=== PATIENT | female | born 1985 | race Caucasian/White ===

== ENCOUNTER 2016-09-15 19:28 | Emergency (ER) | payer SELFPAY ==
[2016-09-15] MEDS ORDERED: LIDOCAINE 5% (700 MG) TRANSDERMAL ADH..PATCH TP ONE (20:29)
[2016-09-15] MEDS ORDERED: HYDROCODONE/ACETAMINOPHEN 5-325 MG TABLET PO ONE (20:29)
--- NOTE | 2016-09-15 20:32 | ER Document Report ---
HPI - HPI Patient complains to provider of: right knee pain Onset: Yesterday Onset/Duration: Gradual Quality of pain: Achy Pain Level: 4 Context: Patient complains of a flareup of chronic right knee pain that started yesterday. Patient denies any injury. Patient states that she recently started a new job 2 weeks ago that involves a lot of standing. Patient also noticed a bruise to her right knee that she is uncertain how she got. Patient denies any other abnormal bleeding or bruising. Associated Symptoms: Other - Right knee pain Exacerbated by: Movement, Walking Relieved by: Denies Similar symptoms previously: Yes Recently seen / treated by doctor: No - ROS ROS below otherwise negative: Yes Systems Reviewed and Negative: Yes All other systems reviewed and negative - CONSTITUTIONAL Constitutional: DENIES: Fever - NEURO Neurology: DENIES: Weakness - REPRODUCTIVE LMP: 08/28/16 Reproductive: DENIES: : - MUSCULOSKELETAL Musculoskeletal: REPORTS: Extremity pain - Right knee - DERM Skin Color: Ecchymosis Skin Problems: None Past Medical History - General Information source: Patient - Social History Smoking Status: Current Every Day Smoker Occupation: [employer] Family History: CVA, DM, Hyperlipidemia, Hypertension, Malignancy, Thyroid Disfunction Patient has suicidal ideation: No Patient has homicidal ideation: No - Past Medical History Cardiac Medical History: Reports: Hx Hypertension - no medication Pulmonary Medical History: Reports: Hx Bronchitis Neurological Medical History: Reports: Hx Migraine Renal/ Medical History: Reports: Hx Kidney Stones, Hx Ovarian Cysts. Denies: Hx Peritoneal Dialysis Musculoskeltal Medical History: Reports Hx Musculoskeletal Deformity, Reports Hx Musculoskeletal Trauma Skin Medical History: Reports Hx Cellulitis Traumatic Medical History: Reports: Hx Fractures Past Surgical History: Reports: Hx Adenoidectomy, Hx Breast Surgery - Cysts, Hx Section, Hx Cholecystectomy, Hx Orthopedic Surgery, Hx Tonsillectomy, Hx Tubal Ligation, Hx Urinary Tract Surgery - stent - Immunizations Immunizations up to date: Yes Hx Diphtheria, Pertussis, Tetanus Vaccination: Yes - 2009 Vertical Provider Document - CONSTITUTIONAL Agree With Documented VS: Yes Exam Limitations: No Limitations General Appearance: WD/WN, No Apparent Distress - INFECTION CONTROL TRAVEL OUTSIDE OF THE [place] IN LAST 30 DAYS: No - HEENT HEENT: Atraumatic, Normocephalic - NECK Neck: Normal Inspection, Supple - RESPIRATORY Respiratory: Breath Sounds Normal, No Respiratory Distress O2 Sat by Pulse Oximetry: 97 - CARDIOVASCULAR Cardiovascular: Regular Rate, Regular Rhythm Pulses: Normal: Posterior tibial - BACK Back: Normal Inspection - MUSCULOSKELETAL/EXTREMETIES Musculoskeletal/Extremeties: MAEW, FROM, Tender - Right knee joint tenderness to joint line as well as right lateral and right superior compartments, no joint effusion, Eccymosis - Area of ecchymosis to distal right femur above knee joint Notes: No laxity with varus or valgus maneuvers. Patellar tendon intact. No joint effusion - NEURO Level of Consciousness: Awake, Alert, Appropriate Motor/Sensory: No Motor Deficit, No Sensory Deficit - DERM Integumentary: Warm, Dry Course - Re-evaluation Re-evalutation: 09/15/16 20:[address] hamilton regarding patient presentation and management. Agrees with discharge plan of care, no additional diagnostic tests recommended this time. 09/15/16 20:30 Patient has crutches, Mukund wrap as well as knee immobilizer at home - Vital Signs Vital signs: Temp Pulse Resp BP Pulse Ox 98.6 F 100 16 141/108 H 97 09/15/16 19:30 09/15/16 19:30 09/15/16 19:30 09/15/16 19:30 09/15/16 19:30 - Diagnostic Test Radiology reviewed: Reports reviewed - Reviewed patient's x-ray report from March 2016 Discharge - Discharge Clinical Impression: Chronic pain of right knee, Elevated blood pressure reading Contusion of right leg Qualifiers: Encounter type: initial encounter Qualified Code(s): S80.11XA - Contusion of right lower leg, initial encounter Instructions: Oral Narcotic Medication ([facility]), Suspected Internal Knee Injury ( [facility]), Knee Immobilizing Splint ([facility]), Use of Crutches ([facility]), Ice & Elevation ( [facility]) Additional Instructions: Return immediately for any new or worsening symptoms Followup with your primary care provider, call tomorrow to make a followup appointment Follow up with orthopedic for further evaluation. Your blood pressure was elevated today, recheck with her primary doctor 1-2 days to have this reevaluated. You may use [id number] topical lidocaine patches to painful area Use your knee immobilizer and crutches at home as directed Prescriptions: Hydrocodone/Acetaminophen [[place] 5-325 Tablet] 1 each PO Q4 PRN #15 tablet PRN Reason: Forms: Elevated Blood Pressure, Restricted Release Referrals: [facility] [Provider Group] - Follow up as needed [facility] [Provider Group] - Follow up as needed [facility] [Provider Group] - Follow up tomorrow
[2016-09-15 20:49] VITALS: BP 135/98
== END 2016-09-15 20:45 | disposition home or self-care (01) ==
LOC: ER 19:28
DX: S80.01XA Contusion of right knee, initial encounter (principal); X58.XXXA Exposure to other specified factors, initial encounter; G89.29 Other chronic pain; M25.561 Pain in right knee; F17.200 Nicotine dependence, unspecified, uncomplicated; I10 Essential (primary) hypertension
CPT/HCPCS: 99283

== ENCOUNTER 2017-01-22 11:31 | Emergency (ER) | payer SELFPAY ==
[2017-01-22 11:44] VITALS: BP 141/93
--- NOTE | 2017-01-22 12:25 | ER Document Report ---
ED Extremity Problem, Lower - General Chief Complaint: Knee Pain Stated Complaint: RIGHT KNEE PAIN Time Seen by Provider: 01/22/17 12:07 Mode of Arrival: Wheelchair Information source: Patient Notes: 31-year-old female presents to ED for complaint of right knee pain 2 days. She has a history of chronic knee pain and states that the pain is increased. She has an appointment with orthopedics in 2 weeks. She states the pain increases when she straightens out her legs. Patient denies any new injuries or falls. TRAVEL OUTSIDE OF THE [place] IN LAST 30 DAYS: No - HPI Patient complains to provider of: Pain Location: Knee Occurred: Other - Chronic Onset/Duration: Persistent Quality of pain: Sharp Severity: Moderate Pain Level: 4 Recent injury: No Associated symptoms: Painful ambulation Exacerbated by: Movement, Walking Relieved by: Elevation, Ice, Rest - Related Data Allergies/Adverse Reactions: Sulfa (Sulfonamide Antibiotics) Allergy (Verified 04/07/16 19:37) Hives Past Medical History - General Information source: Patient - Social History Smoking Status: Current Every Day Smoker Cigarette use (# per day): Yes - One half pack per day Chew tobacco use (# tins/day): No Smoking Education Provided: Yes - Less than 2 minutes Frequency of alcohol use: Occasional Drug Abuse: None Occupation: [employer] Lives with: Parents Family History: Arthritis, CVA, DM, Hyperlipidemia, Hypertension, Malignancy, Thyroid Disfunction. denies: CAD, COPD Patient has suicidal ideation: No Patient has homicidal ideation: No - Past Medical History Cardiac Medical History: Reports: Hx Hypertension - no medication Pulmonary Medical History: Reports: Hx Bronchitis EENT Medical History: Reports: None Neurological Medical History: Reports: Hx Migraine Endocrine Medical History: Reports: None Renal/ Medical History: Reports: Hx Kidney Stones, Hx Ovarian Cysts Malignancy Medical History: Reports: None GI Medical History: Reports: None Musculoskeltal Medical History: Reports Hx Musculoskeletal Deformity, Reports Hx Musculoskeletal Trauma Skin Medical History: Reports Hx Cellulitis Psychiatric Medical History: Reports: None Traumatic Medical History: Reports: Hx Fractures - Pelvis and L4, Hx Spine Fracture Infectious Medical History: Reports: None Past Surgical History: Reports: Hx Adenoidectomy, Hx Breast Surgery - Cysts, Hx Section, Hx Cholecystectomy, Hx Orthopedic Surgery - Rods and left hip , Hx Tonsillectomy, Hx Tubal Ligation, Hx Urinary Tract Surgery - stent - Immunizations Immunizations up to date: Yes Hx Diphtheria, Pertussis, Tetanus Vaccination: Yes - 2009 Review of Systems - Review of Systems Constitutional: No symptoms reported EENT: No symptoms reported Cardiovascular: No symptoms reported Respiratory: No symptoms reported Gastrointestinal: No symptoms reported Genitourinary: No symptoms reported Female Genitourinary: No symptoms reported Musculoskeletal: Joint pain - Right knee. denies: Joint swelling Skin: No symptoms reported Hematologic/Lymphatic: No symptoms reported Neurological/Psychological: No symptoms reported Physical Exam - Vital signs Vitals: Temp Pulse Resp BP Pulse Ox 98.6 F 96 20 141/93 H 99 01/22/17 11:41 01/22/17 11:41 01/22/17 11:41 01/22/17 11:41 01/22/17 11:41 Interpretation: Normal - General General appearance: Appears well, Alert - HEENT Head: Normocephalic, Atraumatic Eyes: Normal Pupils: PERRL - Respiratory Respiratory status: No respiratory distress Chest status: Nontender Breath sounds: Normal Chest palpation: Normal - Cardiovascular Rhythm: Regular Heart sounds: Normal auscultation Murmur: No - Abdominal Inspection: Normal Distension: No distension Bowel sounds: Normal Tenderness: Nontender Organomegaly: No organomegaly - Back Back: Normal, Nontender - Extremities General upper extremity: Normal inspection, Nontender, Normal color, Normal ROM , Normal temperature General lower extremity: Normal inspection, Normal color, Normal ROM, Normal temperature, Normal weight bearing. No: Alicia's sign Hip: Normal, Nontender. No: Pain with ROM, Unable to bear weight Thigh: Normal Knee: Tender, Pain with ROM, Patellar tendon intact, Tender joint line. No: Abrasion, Deformity, Dislocation, Drawer's test instability, Ecchymosis, Instability, Joint effusion, Laceration, Laxity with valgus stress, Laxity with varus stress, Popliteal fossa tender, Unable to bear weight - Neurological Neuro grossly intact: Yes Cognition: Normal Orientation: AAOx4 [place] Coma Scale Eye Opening: Spontaneous [place] Coma Scale Verbal: Oriented G[place] Coma Scale Motor: Obeys Commands [place] Coma Scale Total: 15 Speech: Normal Motor strength normal: LUE, RUE, LLE, RLE Sensory: Normal - Psychological Associated symptoms: Normal affect, Normal mood - Skin Skin Temperature: Warm Skin Moisture: Dry Skin Color: Normal Course - Vital Signs Vital signs: Temp Pulse Resp BP Pulse Ox 98.6 F 96 20 141/93 H 99 01/22/17 11:41 01/22/17 11:41 01/22/17 11:41 01/22/17 11:41 01/22/17 11:41 Discharge - Discharge Clinical Impression: Chronic pain of right knee Condition: Stable Disposition: HOME, SELF-CARE Additional Instructions: Chronic Pain Control Stress, inactivity, and depression make pain more severe regardless of the cause of the pain. Stress and poor physical condition can cause pain such as headaches and backache. Relaxation: Rest in a quiet place with your eyes closed for 20 minutes twice daily. Concentrate on a pleasant image, or simply "feel" your breathing. Clear your mind. Stress management: Deal with your "stressors." Either take action, or eliminate the stressor from your life. Don't let things hang over you. Accept those things you can't change. Nutrition: Eat small, balanced meals -- don't skip, don't overeat. Meals should be high-carbohydrate, low-sugar, low-fat. Exercise: Exercise helps painful conditions and eases stress. Get 30 minutes of moderate exercise, five days a week. Do an activity that does not flare your pain. Precautions: Pain which continues to disrupt daily activities, or which changes in nature, requires a medical evaluation. Pain Clinic referral is available. We do not manage chronic pain in the Emergency Department. We will try to appropriately help you through an acute flare of your chronic painful condition , but for on-going chronic pain that does not improve, you will need to see your private doctor or highway painter helper. We do not provide repeated medication management of chronic painful conditions. If you wish, we can provide the name of local pain management physicians. ICE & ELEVATION: Apply ice packs frequently against the painful area. Many different schedules are recommended, such as "20 minutes on, 20 minutes off" or "one hour ice, two hours rest." If you need to work, you may need to go longer between ice treatments. You should plan to have the area ice packed AT LEAST one- fourth of the time. The ice should be applied over the wrap, tape, or splint, or over a layer of cloth -- not directly against the skin. Some ice bags have a built-in cloth and can be put directly on the skin. Your injured part should be elevated as much as possible over the next 48 hours. Try to keep the injury above the level of the heart. Avoid use of the injured area. Elevation and rest will decrease the swelling. USE OF [id number]-[id number] IBUPROFEN: Ibuprofen (Advil, Nuprin, Medipren, Motrin IB) is a medication for fever and pain control. In addition, it has anti- inflammatory effects which may be beneficial, especially in the treatment of injuries. It's best to take ibuprofen with food. Persons with ulcer disease or allergy to aspirin should notify their physician of this before taking ibuprofen. Ibuprofen can be given every four to six hours, for a total of four doses daily. Age Pain or fever dose Antiinflammatory dose 6-8 yr 200 mg (1 tab) 200 mg (1 tab) 9-11 yr 200 mg (1 tab) 200-400 mg (1-2 tab) 11-14 yr 200-400 mg (1-2 tab) 400 mg (2 tab) 15-adult 400 mg (2 tab) 600 mg (3 tab) FOLLOW-UP CARE: If you have been referred to a physician for follow-up care, call the physician s office for an appointment as you were instructed or within the next two days. If you experience worsening or a significant change in your symptoms, notify the physician immediately or return to the Emergency Department at any time for re-evaluation. Forms: Elevated Blood Pressure, Smoking Cessation Education, Return to Work Referrals: JANUARY DAVIS MD [ACTIVE STAFF] - Follow up as needed
== END 2017-01-22 12:20 | disposition home or self-care (01) ==
LOC: ER 11:31
DX: G89.29 Other chronic pain (principal); M25.561 Pain in right knee; F17.210 Nicotine dependence, cigarettes, uncomplicated; Z88.2 Allergy status to sulfonamides; Z87.442 Personal history of urinary calculi; Z90.49 Acquired absence of other specified parts of digestive tract; Z98.51 Tubal ligation status
CPT/HCPCS: 99283

== ENCOUNTER 2017-03-28 19:03 | Emergency (ER) | payer SELFPAY ==
[2017-03-28] MEDS ORDERED: KETOROLAC TROMETHAMINE INJ/PF 30 MG/1 ML SDV IV ONE (19:32)
[2017-03-28] MEDS ORDERED: NORMAL SALINE 1000 ML 1,000 ML IV ONE (19:32)
--- NOTE | 2017-03-28 19:35 | ER Document Report ---
ED Medical Screen (RME) - General Stated Complaint: FLANK PAIN Time Seen by Provider: 03/28/17 19:32 Mode of Arrival: Ambulatory Information source: Patient TRAVEL OUTSIDE OF THE [place] IN LAST 30 DAYS: No - HPI Patient complains to provider of: L flank pain Onset: Other - Pt .with 4 day h/o L flank pain (has h/o kidney stones) - Related Data Allergies/Adverse Reactions: Sulfa (Sulfonamide Antibiotics) Allergy (Verified 04/07/16 19:37) Hives Home Medications: Current Home Medications No Home Medications 03/28/17 [History] Past Medical History - Social History Chew tobacco use (# tins/day): No Frequency of alcohol use: Occasional Drug Abuse: None - Past Medical History Cardiac Medical History: Reports: Hx Hypertension - no medication Pulmonary Medical History: Reports: Hx Bronchitis Neurological Medical History: Reports: Hx Migraine Renal/ Medical History: Reports: Hx Kidney Stones, Hx Ovarian Cysts. Denies: Hx Peritoneal Dialysis Musculoskeltal Medical History: Reports Hx Musculoskeletal Deformity, Reports Hx Musculoskeletal Trauma Skin Medical History: Reports Hx Cellulitis Traumatic Medical History: Reports: Hx Fractures - Pelvis and L4, Hx Spine Fracture Past Surgical History: Reports: Hx Adenoidectomy, Hx Breast Surgery - Cysts, Hx Section, Hx Cholecystectomy, Hx Orthopedic Surgery - Rods and left hip , Hx Tonsillectomy, Hx Tubal Ligation, Hx Urinary Tract Surgery - stent - Immunizations Immunizations up to date: Yes Hx Diphtheria, Pertussis, Tetanus Vaccination: Yes - 2009 Physical Exam - Vital signs Vitals: Temp Pulse Resp BP Pulse Ox 98.3 F 90 18 151/101 H 99 03/28/17 19:18 03/28/17 19:18 03/28/17 19:18 03/28/17 19:18 03/28/17 19:18 Course - Vital Signs Vital signs: Temp Pulse Resp BP Pulse Ox 98.3 F 90 18 151/101 H 99 03/28/17 19:18 03/28/17 19:18 03/28/17 19:18 03/28/17 19:18 03/28/17 19:18
[2017-03-28 19:54] LABS: AMORPHOUS SEDIMENT,URINE TRACE /HPF; APPEARANCE,URINE CLOUDY; BILIRUBIN,URINE NEGATIVE (NEGATIVE); GLUCOSE, URINE NEGATIVE (NEGATIVE); KETONES,URINE NEGATIVE (NEGATIVE); LEUKOCYTE ESTERASE,URINE NEGATIVE (NEGATIVE); NITRITE,URINE NEGATIVE (NEGATIVE); PROTEIN,URINE NEGATIVE (NEGATIVE); URINE SPECIFIC GRAVITY 1.016; UROBILINOGEN,URINE NEGATIVE mg/dL (<2.0)
--- NOTE | 2017-03-28 20:31 | RADIOLOGY REPORT (SQ) ---
EXAM DESCRIPTION: CT LTD RENAL STONE PROTOCOL ON COMPLETED DATE/TIME: 03/28/2017 8:19 pm REASON FOR STUDY: L flank pain COMPARISON: 06/12/2013. TECHNIQUE: CT scan of the abdomen and pelvis performed without intravenous or oral contrast. Images reviewed with lung, soft tissue, and bone windows. Reconstructed coronal and sagittal MPR images revi ewed. All images stored on PACS. All CT scanners at this facility use dose modulation, iterative reconstruction, and/or weight based d osing when appropriate to reduce radiation dose to as low as reasonably achievable (ALARA). [facility]: Dose Right [facility]: CareDose [facility]: Dose Right [facility]: Teradose 4D [facility]: Smart SharePlow RADIATION DOSE: Up-to-date CT equipment and radiation dose reduction techniques were employed. CTDIv ol: 6.3 mGy. DLP: 334 mGy-cm.mGy. LIMITATIONS: None. FINDINGS: LOWER CHEST: No significant findings. No nodules or infiltrates. NON-CONTRASTED LIVER, SPLEEN, ADRENALS: Evaluation limited by lack of IV contrast. No identified sign ificant masses. PANCREAS: No masses. No peripancreatic inflammatory changes. GALLBLADDER: Surgically absent. RIGHT KIDNEY AND URETER: No suspicious masses. Assessment limited by lack of IV contrast. Several s mall calyceal calcifications. No hydronephrosis or hydroureter. LEFT KIDNEY AND URETER: No suspicious masses. Assessment limited by lack of IV contrast. Several sm all calyceal calcifications. No hydronephrosis or hydroureter. AORTA AND RETROPERITONEUM: No aneurysm. No retroperitoneal masses or adenopathy. BOWEL AND PERITONEAL CAVITY: No obvious masses or inflammatory changes. No free fluid. APPENDIX: Normal. PELVIS, BLADDER, AND ABDOMINAL WALL:No abnormal masses. No free fluid. Bladder normal. BONES: No significant findings. Surgical hardware in the left sacrum and iliac bone. OTHER: No other significant finding. IMPRESSION: SEVERAL SMALL CALYCEAL CALCULI IN BOTH KIDNEYS. NO URETERAL CALCULI OR OBSTRUCTION. NO OTHER SIGNIFICANT OR ACUTE PROCESS IN THE ABDOMEN OR PELVIS. COMMENT: Quality ID # [id number]: Final reports with documentation of one or more dose reduction techniques (e.g., Automated exposure control, adjustment of the mA and/or kV according to patient size, use of iterative reconstruction technique) TECHNICAL DOCUMENTATION: JOB ID: [id number]- All Rights Reserved
[2017-03-28] MEDS ORDERED: DIAZEPAM 5 MG TABLET PO ONE (21:12)
--- NOTE | 2017-03-28 21:16 | ER Document Report ---
ED General - General Chief Complaint: Flank Pain Stated Complaint: FLANK PAIN Time Seen by Provider: 03/28/17 19:32 Mode of Arrival: Ambulatory Notes: Patient is a 31 year old female that comes to the ED for chief complaint of left flank pain. Patient states she feels like there is a ball in her left lower back area, she states pain is intermittently very sharp, she states she has a history of kidney stones and she thinks she might have another one. She denies abdominal pain, hematuria, dysuria, fever, chills, nausea, vomiting, or any other locations of pain. She denies injury but she does note that when she bends over she has difficulty standing up again without sharp pain. TRAVEL OUTSIDE OF THE [place] IN LAST 30 DAYS: No - Related Data Allergies/Adverse Reactions: Sulfa (Sulfonamide Antibiotics) Allergy (Verified 04/07/16 19:37) Hives Past Medical History - General Information source: Patient - Social History Smoking Status: Current Every Day Smoker Chew tobacco use (# tins/day): No Frequency of alcohol use: Occasional Drug Abuse: None Lives with: Family Family History: Arthritis, CVA, DM, Hyperlipidemia, Hypertension, Malignancy, Thyroid Disfunction. denies: CAD, COPD Patient has suicidal ideation: No Patient has homicidal ideation: No - Past Medical History Cardiac Medical History: Reports: Hx Hypertension - no medication Pulmonary Medical History: Reports: Hx Bronchitis Neurological Medical History: Reports: Hx Migraine Renal/ Medical History: Reports: Hx Kidney Stones, Hx Ovarian Cysts. Denies: Hx Peritoneal Dialysis Musculoskeltal Medical History: Reports Hx Musculoskeletal Deformity, Reports Hx Musculoskeletal Trauma Skin Medical History: Reports Hx Cellulitis Traumatic Medical History: Reports: Hx Fractures - Pelvis and L4, Hx Spine Fracture Past Surgical History: Reports: Hx Adenoidectomy, Hx Breast Surgery - Cysts, Hx Section, Hx Cholecystectomy, Hx Orthopedic Surgery - Rods and left hip , Hx Tonsillectomy, Hx Tubal Ligation, Hx Urinary Tract Surgery - stent - Immunizations Immunizations up to date: Yes Hx Diphtheria, Pertussis, Tetanus Vaccination: Yes - 2009 Review of Systems - Review of Systems Constitutional: No symptoms reported EENT: No symptoms reported Cardiovascular: No symptoms reported Respiratory: No symptoms reported Gastrointestinal: See HPI Genitourinary: See HPI Female Genitourinary: See HPI Musculoskeletal: See HPI Skin: No symptoms reported Hematologic/Lymphatic: No symptoms reported Neurological/Psychological: No symptoms reported Physical Exam - Vital signs Vitals: Temp Pulse Resp BP Pulse Ox 98.3 F 90 18 151/101 H 99 03/28/17 19:18 03/28/17 19:18 03/28/17 19:18 03/28/17 19:18 03/28/17 19:18 Interpretation: Normal - General General appearance: Appears well, Alert In distress: None - HEENT Head: Normocephalic, Atraumatic Eyes: Normal Pupils: PERRL - Respiratory Respiratory status: No respiratory distress Chest status: Nontender Breath sounds: Normal Chest palpation: Normal - Cardiovascular Rhythm: Regular. No: Tachycardia Heart sounds: Normal auscultation, S1 appreciated, S2 appreciated Murmur: No Normal capillary refill: Yes - Abdominal Inspection: Normal Distension: No distension Bowel sounds: Normal Tenderness: Nontender. No: Tender, Guarding Organomegaly: No organomegaly - Back Back: Tender - Tenderness over the left paralumbar musculature extending down to the left gluteal area, no CVA tenderness, no signs of trauma, no deformity, no saddle anesthesia, normal range of motion of all extremities, normal distal neurovascular exam. No: Vertebra tenderness - Extremities General upper extremity: Normal inspection, Nontender, Normal color, Normal ROM , Normal temperature General lower extremity: Normal inspection, Nontender, Normal color, Normal ROM , Normal temperature, Normal weight bearing. No: Alicia's sign - Neurological Neuro grossly intact: Yes Cognition: Normal Orientation: AAOx4 [place] Coma Scale Eye Opening: Spontaneous [place] Coma Scale Verbal: Oriented [place] Coma Scale Motor: Obeys Commands [place] Coma Scale Total: 15 Speech: Normal Motor strength normal: LUE, RUE, LLE, RLE Sensory: Normal - Psychological Associated symptoms: Normal affect, Normal mood - Skin Skin Temperature: Warm Skin Moisture: Dry Skin Color: Normal Course - Re-evaluation Re-evalutation: Patient has already had a urinalysis, hCG, and CAT scan from triage. Urine unremarkable, hCG negative, vital signs unremarkable. CAT scan showing punctate stones in the kidneys with no hydronephrosis, obstruction, ureterolithiasis, or acute abnormality noted. On physical exam patient's examination is consistent with muscle pain with clear palpation of tender muscle in the left paralumbar musculature extending down towards the gluteal musculature. No midline tenderness, saddle anesthesia , or concerning deficits. Worse with position changes. Discussed with patient , patient will be treated for muscular symptoms, discussed follow-up and return precautions, patient states satisfaction and agreement. - Vital Signs Vital signs: Temp Pulse Resp BP Pulse Ox 98.1 F 78 18 115/78 98 03/28/17 21:24 03/28/17 21:24 03/28/17 21:24 03/28/17 21:24 03/28/17 21:24 Discharge - Discharge Clinical Impression: Left flank pain Condition: Stable Disposition: HOME, SELF-CARE Additional Instructions: There are small kidney stones in both kidneys, however there is no passing kidney stone, no obstruction, no concerning abnormalities. A your urinalysis does not show infection or concerning abnormalities. Your workup, symptoms, and evaluation are most consistent with a muscular source of your pain, appears to be a muscle spasm. Apply heat to the area, rest, avoid lifting/twisting, take the muscle relaxer as prescribed, follow-up with primary care. Return for any concerning or worsening symptoms including vomiting, fever, numbness in her legs, incontinence, or any other concerning symptoms. Prescriptions: Methocarbamol [Robaxin 750 mg Tablet] 750 mg PO Q6 #20 tablet Forms: Return to Work
[2017-03-28 21:24] VITALS: BP 115/78
== END 2017-03-28 21:24 | disposition home or self-care (01) ==
LOC: ER 19:03
DX: R10.9 Unspecified abdominal pain (principal); F17.200 Nicotine dependence, unspecified, uncomplicated; I10 Essential (primary) hypertension; Z88.2 Allergy status to sulfonamides; Z87.442 Personal history of urinary calculi; Z90.49 Acquired absence of other specified parts of digestive tract; Z98.51 Tubal ligation status
CPT/HCPCS: 99284; 96361; 96374; 81025; 81001; 76380; J1885; J7030

== ENCOUNTER 2017-12-01 19:53 | Emergency (ER) | payer SELFPAY ==
[2017-12-01 20:03] VITALS: BP 135/89
[2017-12-01] MEDS ORDERED: KETOROLAC TROMETHAMINE INJ/PF 30 MG/1 ML SDV IM ONE (21:22)
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
--- NOTE | 2017-12-01 21:49 | RADIOLOGY REPORT (SQ) ---
EXAM DESCRIPTION: HIP LEFT AP/LATERAL COMPLETED DATE/TIME: 12/01/2017 8:55 pm REASON FOR STUDY: left hip pain COMPARISON: 12/29/2015 NUMBER OF VIEWS: Two views. TECHNIQUE: AP pelvis and additional frog-leg view of the left hip. LIMITATIONS: None. FINDINGS: MINERALIZATION: Normal. LEFT HIP: No fracture or dislocation. No worrisome bone lesions. RIGHT HIP: No fracture or dislocation. No worrisome bone lesions. PUBIS AND ISCHIUM: No fracture. PELVIS: No acute fracture. Left pelvic fixation screw appears stable. SACRUM: No fracture or dislocation. No worrisome bone lesions. LOWER LUMBAR SPINE: No fracture or dislocation. No worrisome bone lesions. No significant disc disea se. SOFT TISSUES: No findings. OTHER: No other significant finding. IMPRESSION: NO RADIOGRAPHIC EVIDENCE OF ACUTE INJURY. TECHNICAL DOCUMENTATION: JOB ID: [id number] [id number] 2010 [employer]- All Rights Reserved Reading location - IP/workstation name: [email or web address]
== END 2017-12-01 23:00 | disposition home or self-care (01) ==
LOC: ER 19:53
DX: M25.552 Pain in left hip (principal); M70.62 Trochanteric bursitis, left hip; F17.200 Nicotine dependence, unspecified, uncomplicated; Z87.442 Personal history of urinary calculi; Z90.49 Acquired absence of other specified parts of digestive tract; Z98.51 Tubal ligation status
CPT/HCPCS: 99283; 96372; 73502; J1885

== ENCOUNTER 2018-10-05 04:06 | Emergency (ER) | payer SELFPAY ==
[2018-10-05 04:47] LABS: ABSOLUTE BASOPHILS # (AUTO) 0.1 10^3/uL (0.0-0.2); ABSOLUTE EOSINOPHILS # (AUTO) 0.2 10^3/uL (0.0-0.6); ABSOLUTE LYMPHOCYTES (AUTO) 5.4 10^3/uL (0.5-4.7); ABSOLUTE MONOCYTES (AUTO) 0.7 10^3/uL (0.1-1.4); ABSOLUTE NEUT (AUTO) 5.7 10^3/uL (1.7-8.2); BASOPHILS % (AUTO) 0.4 % (0-2); EOSINOPHILS % (AUTO) 1.5 % (0-6); HEMATOCRIT 34.9 % (36.0-47.0); HEMOGLOBIN 11.7 g/dL (12.0-15.5); LYMPHOCYTES % (AUTO) 44.9 % (13-45); MEAN CORPUSCULAR HEMOGLOBIN 29.4 pg (27.0-33.4); MEAN CORPUSCULAR HGB CONC 33.6 g/dL (32.0-36.0); MEAN CORPUSCULAR VOLUME 88 fl (80-97); PLATELET COUNT 494 10^3/uL (150-450); RED BLOOD COUNT 3.99 10^6/uL (3.72-5.28); RED CELL DISTRIBUTION WIDTH 14.6 % (11.5-14.0); SEGMENTED NEUTROPHILS % (AUTO) 47.2 % (42-78); TOTAL CELLS COUNTED % (AUTO) 100 %; WHITE BLOOD COUNT 12.1 10^3/uL (4.0-10.5)
--- NOTE | 2018-10-05 05:19 | RADIOLOGY REPORT (SQ) ---
EXAM DESCRIPTION: XR CHEST 1 VIEW COMPLETED DATE/TME: 10/05/2018 04:25 CLINICAL HISTORY: chest pain COMPARISON: None. FINDINGS: Single frontal view of the chest. Cardiomediastinal silhouette: Normal size and contour. Lungs: No pneumothorax or pleural effusion. Linear left midlung opacity. Leads overlie the chest. Low lung volumes. Bones: No acute osseous abnormality. Upper abdomen: No abnormality identified. IMPRESSION: 1. Linear left midlung opacity likely represents atelectasis.
[2018-10-05] MEDS ORDERED: METOCLOPRAMIDE HCL ORAL SOLN 10 MG/10 ML UDCUP PO ONE (05:31)
[2018-10-05] MEDS ORDERED: MAG HYDROX/AL HYDROX/SIMETH SUSP 30 ML UDCUP PO ONE (05:31)
[2018-10-05] MEDS ORDERED: LIDOCAINE 2% VISCOUS SOLN 20 ML UDCUP PO ONE (05:31)
[2018-10-05] MEDS ORDERED: KETOROLAC TROMETHAMINE INJ/PF 30 MG/1 ML SDV IV ONE (05:31)
[2018-10-05 05:32] LABS: ALANINE AMINOTRANSFERASE 31 U/L (9-52); ALBUMIN 3.7 g/dL (3.5-5.0); ALKALINE PHOSPHATASE 81 U/L (38-126); ANION GAP 10 (5-19); ASPARTATE AMINO TRANSFERASE 35 U/L (14-36); BILIRUBIN,DIRECT 0.2 mg/dL (0.0-0.4); BILIRUBIN,TOTAL 0.2 mg/dL (0.2-1.3); BLOOD UREA NITROGEN 8 mg/dL (7-20); CALCIUM 9.3 mg/dL (8.4-10.2); CARBON DIOXIDE 27 mmol/L (22-30); CHLORIDE 106 mmol/L (98-107); GLUCOSE 94 mg/dL (75-110); POTASSIUM 4.1 mmol/L (3.6-5.0); SODIUM 142.5 mmol/L (137-145); TOTAL PROTEIN 6.6 g/dL (6.3-8.2)
[2018-10-05] MEDS ORDERED: MORPHINE SULFATE 10 MG/ML INJ IV ONE (07:05)
--- NOTE | 2018-10-05 08:46 | ER Document Report ---
ED Cardiac - General Chief Complaint: Chest Pain Stated Complaint: CHEST PAINS Time Seen by Provider: 10/05/18 04:24 Mode of Arrival: Ambulatory Information source: Patient Notes: Patient is a 33-year-old female presented to the emergency department with complaints of chest pain that started yesterday evening. Patient reports the pain is in her right chest wall and describes this as a dull achy pain. She states that it has gradually gotten worse. She reports mild shortness of breath and a numbness sensation down her left upper extremity however the numbness has now resolved. She also reports nausea without vomiting. Patient denies any history of hypertension, hyperlipidemia, CAD. She does report that she is a smoker. TRAVEL OUTSIDE OF THE [place] IN LAST 30 DAYS: No - Related Data Allergies/Adverse Reactions: Sulfa (Sulfonamide Antibiotics) Allergy (Verified 04/07/16 19:37) Hives Past Medical History - General Information source: Patient - Social History Smoking Status: Current Every Day Smoker Frequency of alcohol use: None Drug Abuse: None Family History: Arthritis, CVA, DM, Hyperlipidemia, Hypertension, Malignancy, Thyroid Disfunction. denies: CAD, COPD Patient has suicidal ideation: No Patient has homicidal ideation: No - Past Medical History Cardiac Medical History: Reports: Hx Hypertension - no medication Pulmonary Medical History: Reports: Hx Bronchitis Neurological Medical History: Reports: Hx Migraine Renal/ Medical History: Reports: Hx Kidney Stones, Hx Ovarian Cysts. Denies: Hx Peritoneal Dialysis Musculoskeletal Medical History: Reports Hx Musculoskeletal Deformity, Reports Hx Musculoskeletal Trauma Skin Medical History: Reports Hx Cellulitis Traumatic Medical History: Reports: Hx Fractures - Pelvis and L4, Hx Spine Fracture Past Surgical History: Reports: Hx Adenoidectomy, Hx Breast Surgery - Cysts, Hx Section, Hx Cholecystectomy, Hx Orthopedic Surgery - Rods and left hip, Hx Tonsillectomy, Hx Tubal Ligation, Hx Urinary Tract Surgery - stent - Immunizations Immunizations up to date: Yes Hx Diphtheria, Pertussis, Tetanus Vaccination: Yes - 2009 Review of Systems - Review of Systems Constitutional: No symptoms reported EENT: No symptoms reported Cardiovascular: See HPI Respiratory: See HPI Gastrointestinal: See HPI Genitourinary: See HPI Female Genitourinary: No symptoms reported Musculoskeletal: See HPI Skin: No symptoms reported Hematologic/Lymphatic: No symptoms reported Physical Exam - Vital signs Vitals: Temp Pulse Resp BP Pulse Ox 98.2 F 110 H 18 152/126 H 98 10/05/18 04:07 10/05/18 04:07 10/05/18 04:07 10/05/18 04:07 10/05/18 04:07 - Notes Notes: PHYSICAL EXAMINATION: GENERAL: Well-appearing, well-nourished and in no acute distress. HEAD: Atraumatic, normocephalic. EYES: Pupils equal round and reactive to light, extraocular movements intact, conjunctiva are normal. ENT: Nares patent, oropharynx clear without exudates. Moist mucous membranes. NECK: Normal range of motion, supple without lymphadenopathy LUNGS: Breath sounds clear to auscultation bilaterally and equal. No wheezes rales or rhonchi. HEART: Regular rate and rhythm without murmurs ABDOMEN: Soft, nontender, nondistended abdomen. No guarding, no rebound. No masses appreciated. Female : deferred Musculoskeletal: Normal range of motion, no pitting or edema. No cyanosis. Tenderness to palpation to right chest wall. NEUROLOGICAL: Cranial nerves grossly intact. Normal speech, normal gait. Normal sensory, motor exams PSYCH: Normal mood, normal affect. SKIN: Warm, Dry, normal turgor, no rashes or lesions noted. Course - Re-evaluation Re-evalutation: Patient appears well, nontoxic is alert and interactive. Patient's chest pain is reproducible with palpation to the right chest wall. Her CBC, CMP and troponin are negative. Chest x-ray is negative for any acute findings. EKG shows a sinus tachycardia rate 115, QTc 476, normal axis with no ST segment elevations or depressions. Her heart score is 1. We will draw a repeat troponin with plans to discharge patient home. Repeat troponin is negative. Again patient's heart score is 1. She is PERC negative. Her chest pain has resolved while in the emergency department. Will discharge patient home with plans to follow-up with primary care. [facility]. ED return precautions were discussed and patient verbalizes and agrees to return if symptoms worsen. Patient was hypertensive on several of her blood pressure readings. When I went to the room to evaluate her she did have a small adult cuff on her arm which was not appropriate for her size. After blood pressure cuff was changed her blood pressure readings were in the normal range. - Vital Signs Vital signs: Temp Pulse Resp BP Pulse Ox 98.2 F 110 H 15 121/82 98 10/05/18 04:07 10/05/18 04:07 10/05/18 09:00 10/05/18 07:19 10/05/18 09:00 - Laboratory Result Diagrams: 10/05/18 04:31 10/05/18 04:31 Laboratory results interpreted by me: 10/05/18 10/05/18 04:31 04:31 WBC 12.1 H Hgb 11.7 L Hct 34.9 L RDW 14.6 H Plt Count 494 H Absolute Lymphocytes 5.4 H Creatinine 0.45 L Discharge - Discharge Clinical Impression: Chest pain Qualifiers: Chest pain type: unspecified Qualified Code(s): R07.9 - Chest pain, unspecified Condition: Stable Disposition: HOME, SELF-CARE Instructions: Chest Wall Pain ([facility]), Chest Pain of Unclear Cause ([facility]) Additional Instructions: Your cardiac work-up today was negative. I would like you to call the [facility] to establish an appointment. Take ibuprofen 600 mg every 6 hours. The chest pain is quite possibly being caused by musculoskeletal strain considering it is worse with movement and manipulation. Return to the emergency department with any new or worsening symptoms to include worsening chest pain, shortness of breath, difficulty breathing or any other symptom that is concerning to you. Forms: Return to Work
[2018-10-05 09:07] VITALS: BP 121/82
--- NOTE | 2018-10-05 18:36 | EKG REPORT ---
SEVERITY:- BORDERLINE ECG - SINUS TACHYCARDIA BORDERLINE PROLONGED QT INTERVAL : Confirmed by: Leyla Ortiz MD 05-Oct-2018 18:35:45
== END 2018-10-05 09:07 | disposition home or self-care (01) ==
LOC: ER 04:06
DX: R07.9 Chest pain, unspecified (principal); F17.200 Nicotine dependence, unspecified, uncomplicated; I10 Essential (primary) hypertension; Z88.2 Allergy status to sulfonamides; Z87.442 Personal history of urinary calculi; Z90.49 Acquired absence of other specified parts of digestive tract; Z98.51 Tubal ligation status
CPT/HCPCS: 93005; 99284; 96374; 96375; 36415; 85025; 80053; 84484; 71045; 93010; J3490; J1885; J2270

== ENCOUNTER 2018-11-08 17:31 | Emergency (ER) | payer SELFPAY ==
[2018-11-08] MEDS ORDERED: KETOROLAC TROMETHAMINE INJ/PF 30 MG/1 ML SDV IV ONE (18:30)
[2018-11-08] MEDS ORDERED: ONDANSETRON HCL INJ/PF 4 MG/2 ML SDV IV ONE (18:30)
[2018-11-08] MEDS ORDERED: NORMAL SALINE 1000 ML 1,000 ML IV ONE ×2 (18:31→23:55)
--- NOTE | 2018-11-08 18:32 | ER Document Report ---
ED Medical Screen (RME) - General Chief Complaint: Flank Pain Stated Complaint: FLANK PAIN Time Seen by Provider: 11/08/18 18:29 Mode of Arrival: Ambulatory Information source: Patient Notes: Patient is a 33-year-old female presented to the emergency department chief complaint of sudden onset right flank pain that began at 330 this afternoon. Patient reports history of kidney stones with stent placement several years ago. She reports associated nausea and vomiting. Denies any hematuria or fever. Exam: Right CVA tenderness, right lower quadrant tenderness with palpation. I have greeted and performed a rapid initial assessment of this patient. A comprehensive ED assessment and evaluation of the patient, analysis of test results and completion of the medical decision making process will be conducted by additional ED providers. I have specifically instructed the patient or family members with the patient to immediately return to any nursing staff should anything change in the patient's condition or with their chief complaint. This medical record was dictated with voice recognizing software. There may be grammatical, syntax errors that are unintended. TRAVEL OUTSIDE OF THE [place] IN LAST 30 DAYS: No - Related Data Allergies/Adverse Reactions: Sulfa (Sulfonamide Antibiotics) Allergy (Verified 11/08/18 17:32) Hives Past Medical History - Past Medical History Cardiac Medical History: Reports: Hx Hypertension - no medication Pulmonary Medical History: Reports: Hx Bronchitis Neurological Medical History: Reports: Hx Migraine Renal/ Medical History: Reports: Hx Kidney Stones, Hx Ovarian Cysts. Denies: Hx Peritoneal Dialysis Musculoskeltal Medical History: Reports Hx Musculoskeletal Deformity, Reports Hx Musculoskeletal Trauma Skin Medical History: Reports Hx Cellulitis Traumatic Medical History: Reports: Hx Fractures - Pelvis and L4, Hx Spine Fracture Past Surgical History: Reports: Hx Adenoidectomy, Hx Breast Surgery - Cysts, Hx Section, Hx Cholecystectomy, Hx Orthopedic Surgery - Rods and left hip, Hx Tonsillectomy, Hx Tubal Ligation, Hx Urinary Tract Surgery - stent - Immunizations Immunizations up to date: Yes Hx Diphtheria, Pertussis, Tetanus Vaccination: Yes - 2009 Physical Exam - Vital signs Vitals: Temp Pulse Resp BP Pulse Ox 98.3 F 125 H 16 153/96 H 98 11/08/18 17:36 11/08/18 17:36 11/08/18 17:36 11/08/18 17:36 11/08/18 17:36 Course - Vital Signs Vital signs: Temp Pulse Resp BP Pulse Ox 98.3 F 125 H 16 153/96 H 98 11/08/18 17:36 11/08/18 17:36 11/08/18 17:36 11/08/18 17:36 11/08/18 17:36
[2018-11-08 19:52] LABS: ABSOLUTE BASOPHILS # (AUTO) 0.1 10^3/uL (0.0-0.2); ABSOLUTE LYMPHOCYTES (AUTO) 3.2 10^3/uL (0.5-4.7); ABSOLUTE MONOCYTES (AUTO) 0.6 10^3/uL (0.1-1.4); ABSOLUTE NEUT (AUTO) 11.5 10^3/uL (1.7-8.2); BASOPHILS % (AUTO) 0.5 % (0-2); EOSINOPHILS % (AUTO) 0.1 % (0-6); HEMATOCRIT 36.9 % (36.0-47.0); HEMOGLOBIN 12.8 g/dL (12.0-15.5); LYMPHOCYTES % (AUTO) 20.9 % (13-45); MEAN CORPUSCULAR HEMOGLOBIN 29.5 pg (27.0-33.4); MEAN CORPUSCULAR HGB CONC 34.7 g/dL (32.0-36.0); MEAN CORPUSCULAR VOLUME 85 fl (80-97); MONOCYTES % (AUTO) 4.2 % (3-13); PLATELET COUNT 485 10^3/uL (150-450); RED BLOOD COUNT 4.35 10^6/uL (3.72-5.28); RED CELL DISTRIBUTION WIDTH 14.9 % (11.5-14.0); SEGMENTED NEUTROPHILS % (AUTO) 74.3 % (42-78); TOTAL CELLS COUNTED % (AUTO) 100 %; WHITE BLOOD COUNT 15.5 10^3/uL (4.0-10.5)
[2018-11-08 20:01] LABS: AMORPHOUS SEDIMENT,URINE TRACE /HPF; APPEARANCE,URINE TURBID; BILIRUBIN,URINE NEGATIVE (NEGATIVE); GLUCOSE, URINE NEGATIVE (NEGATIVE); KETONES,URINE NEGATIVE (NEGATIVE); LEUKOCYTE ESTERASE,URINE NEGATIVE (NEGATIVE); NITRITE,URINE NEGATIVE (NEGATIVE); PROTEIN,URINE NEGATIVE (NEGATIVE); URINE SPECIFIC GRAVITY 1.019; UROBILINOGEN,URINE NEGATIVE mg/dL (<2.0)
[2018-11-08 20:03] LABS: COLOR,URINE YELLOW
[2018-11-08 20:08] LABS: ALANINE AMINOTRANSFERASE 17 U/L (9-52); ALBUMIN 4.6 g/dL (3.5-5.0); ALKALINE PHOSPHATASE 92 U/L (38-126); ANION GAP 10 (5-19); ASPARTATE AMINO TRANSFERASE 19 U/L (14-36); BILIRUBIN,DIRECT 0.3 mg/dL (0.0-0.4); BILIRUBIN,TOTAL 0.4 mg/dL (0.2-1.3); BLOOD UREA NITROGEN 8 mg/dL (7-20); CALCIUM 10.8 mg/dL (8.4-10.2); CARBON DIOXIDE 28 mmol/L (22-30); CHLORIDE 101 mmol/L (98-107); GLUCOSE 81 mg/dL (75-110); POTASSIUM 4.3 mmol/L (3.6-5.0); SODIUM 138.9 mmol/L (137-145); TOTAL PROTEIN 7.9 g/dL (6.3-8.2)
--- NOTE | 2018-11-08 23:36 | ER Document Report ---
ED General - General Chief Complaint: Flank Pain Stated Complaint: FLANK PAIN Time Seen by Provider: 11/08/18 18:29 Primary Care Provider: [facility] [Provider Group] - Follow up in 3-5 days Mode of Arrival: Ambulatory Notes: Patient is a 33-year-old female that presents to the emergency department for chief complaint of right flank pain. Patient reports history of kidney stones, and thinks she may have another one, she is been having pain in her right flank for the past several days, with associated nausea and vomiting. She denies having any dysuria or urinary frequency, but has some pressure with urinating. This got worse over the course of today, got worse around 3 PM to the point she decided come to the emergency department. She did not notice any blood in the u rine this time, but was afraid she was having another kidney stone she is had to have surgery in the past for them. She currently rates her pain as an 8 out of 10 describes it is a severe sharp and stabbing sensation on the right side. Past Medical History: Hypertension, kidney stones Past Surgical History: Cystoscopy with kidney stone surgery Social History: Admits to smoking cigarettes, denies alcohol or illicit drug use. Family History: Reviewed and noncontributory for presenting illness Allergies: Reviewed, see documented allergy list. REVIEW OF SYSTEMS: Other than noted above, the 12 point review of systems was reviewed with the patient and were negative, all pertinent findings are included in the HPI. PHYSICAL EXAMINATION: Vital signs reviewed, nursing noted reviewed. GENERAL: Patient appears uncomfortable on exam but no acute distress HEAD: Atraumatic, normocephalic. EYES: Eyes appear normal, extraocular movements intact, sclera anicteric, conjunctiva are normal. ENT: nares patent, oropharynx clear without exudates. Moist mucous membranes. NECK: Normal range of motion, supple without lymphadenopathy LUNGS: Breath sounds clear to auscultation bilaterally and equal. No wheezes rales or rhonchi. HEART: Regular rate and rhythm without murmurs ABDOMEN: Soft, there is right flank tenderness to palpation, no significant anterior abdominal tenderness, normoactive bowel sounds. No rebound, guarding, or rigidity. No masses appreciated. EXTREMITIES: Nontender, good range of motion, no pitting or edema. NEUROLOGICAL: No focal neurological deficits. Moves all extremities spontaneously Motor and sensory grossly intact on exam. PSYCH: Normal mood, normal affect. SKIN: Warm, Dry, normal turgor, no rashes or lesions noted on exposed skin TRAVEL OUTSIDE OF THE [place] IN LAST 30 DAYS: No - Related Data Allergies/Adverse Reactions: Sulfa (Sulfonamide Antibiotics) Allergy (Verified 11/08/18 17:32) Hives Past Medical History - General Information source: Patient - Social History Smoking Status: Never Smoker Family History: Arthritis, CVA, DM, Hyperlipidemia, Hypertension, Malignancy, Thyroid Disfunction. denies: CAD, COPD Patient has suicidal ideation: No Patient has homicidal ideation: No - Past Medical History Cardiac Medical History: Reports: Hx Hypertension - no medication Pulmonary Medical History: Reports: Hx Bronchitis Neurological Medical History: Reports: Hx Migraine Renal/ Medical History: Reports: Hx Kidney Stones, Hx Ovarian Cysts. Denies: Hx Peritoneal Dialysis Musculoskeletal Medical History: Reports Hx Musculoskeletal Deformity, Reports Hx Musculoskeletal Trauma Skin Medical History: Reports Hx Cellulitis Traumatic Medical History: Reports: Hx Fractures - Pelvis and L4, Hx Spine Fract ure Past Surgical History: Reports: Hx Adenoidectomy, Hx Breast Surgery - Cysts, Hx Section, Hx Cholecystectomy, Hx Orthopedic Surgery - Rods and left hip, Hx Tonsillectomy, Hx Tubal Ligation, Hx Urinary Tract Surgery - stent - Immunizations Immunizations up to date: Yes Hx Diphtheria, Pertussis, Tetanus Vaccination: Yes - 2009 Physical Exam - Vital signs Vitals: Temp Pulse Resp BP Pulse Ox 98.3 F 125 H 16 153/96 H 98 11/08/18 17:36 11/08/18 17:36 11/08/18 17:36 11/08/18 17:36 11/08/18 17:36 Course - Re-evaluation Re-evalutation: Patient seen and examined vital signs reviewed. Laboratory data and/or imaging were ordered as appropriate for the patient's presenting symptoms and complaint, with consideration of any critical or life t hreatening conditions that may be associated with their obtained history and exam as noted above. Patient was treated with IV fluids, Toradol and Zofran Results were reviewed when available and demonstrated negative CT imaging of the mandible abdomen and pelvis with the exception of small stones in the renal pelvises, but no ureteral stones. UA was unremarkable, she did have a leukocytosis, but no evidence of acute infection. Patient was still having some pain on reevaluation, she is given IV fentanyl, I went to reevaluate her she was feeling much better, she most likely recently passed a stone, and having ureteral spasming, as the pain is been going on for about a week now, and most recently got worse, likely smaller stone, I believe the patient is likely having renal colic, she is given a prescription for Flomax, advised to follow-up with urology, or [facility], she states she is been urinating more at night, ever since she had an accident that involved injury to her pelvis, patient was agreeable to this plan of care and discharged home. Results were discussed with the patient at this point, after careful consideration I feel that that patient can be discharged from the emergency department, the patient was educated treatments and reasons to return to the emergency department based on their presumed diagnosis as noted above, they were advised to followup with a primary care physician in 2-3 days. Patient was agreeable to plan of care. *Note is created using voice recognition software and may contain spelling, syntax or grammatical errors. Laboratory 11/08/18 11/08/18 11/08/18 19:30 19:30 19:30 WBC 15.5 H RBC 4.35 Hgb 12.8 Hct 36.9 MCV 85 MCH 29.5 MCHC 34.7 RDW 14.9 H Plt Count 485 H Seg Neutrophils % 74.3 Lymphocytes % 20.9 Monocytes % 4.2 Eosinophils % 0.1 Basophils % 0.5 Absolute Neutrophils 11.5 H Absolute Lymphocytes 3.2 Absolute Monocytes 0.6 Absolute Eosinophils 0.0 Absolute Basophils 0.1 Sodium 138.9 Potassium 4.3 Chloride 101 Carbon Dioxide 28 Anion Gap 10 BUN 8 Creatinine 0.60 Est GFR ( Amer) > 60 Est GFR (Non-Af Amer) > 60 Glucose 81 Calcium 10.8 H Total Bilirubin 0.4 Direct Bilirubin 0.3 Neonat Total Bilirubin Not Reportable Neonat Direct Bilirubin Not Reportable Neonat Indirect Bili Not Reportable AST 19 ALT 17 Alkaline Phosphatase 92 Total Protein 7.9 Albumin 4.6 Urine Color YELLOW Urine Appearance TURBID Urine pH 5.0 Ur Specific [place] 1.019 Urine Protein NEGATIVE Urine Glucose (UA) NEGATIVE Urine Ketones NEGATIVE Urine Blood NEGATIVE Urine Nitrite NEGATIVE Urine Bilirubin NEGATIVE Urine Urobilinogen NEGATIVE Ur Leukocyte Esterase NEGATIVE Urine RBC (Auto) 2 Urine Bacteria (Auto) 2+ Squamous Epi Cells Auto 53 Amorphous Sediment Auto TRACE Urine Mucus (Auto) MANY Urine Ascorbic Acid 20 H Urine HCG, Qual NEGATIVE Abdomen/Pelvis CT 11/08/18 23:55 IMPRESSION: 1. Multiple small bilateral renal calculi, all less than 2 to 3 mm in diameter. 2. No ureteral calculi or hydronephrosis. No bladder calculi. 3. Previous cholecystectomy - Vital Signs Vital signs: Temp Pulse Resp BP Pulse Ox 97.7 F 93 16 145/90 H 100 11/09/18 01:56 11/09/18 01:56 11/09/18 01:56 11/09/18 01:56 11/09/18 01:56 - Laboratory Result Diagrams: 11/08/18 19:30 11/08/18 19:30 Laboratory results interpreted by me: 11/08/18 11/08/18 11/08/18 19:30 19:30 19:30 WBC 15.5 H RDW 14.9 H Plt Count 485 H Absolute Neutrophils 11.5 H Calcium 10.8 H Urine Ascorbic Acid 20 H Discharge - Discharge Clinical Impression: Renal colic Condition: Stable Disposition: HOME, SELF-CARE Instructions: Abdominal Pain ([facility]) Additional Instructions: Please follow-up with urology, several of them listed below, you can also follow-up with [facility], recommend taking the Flomax as prescribed, as well as the pain medication, and if you have any worsening symptoms, things are not improving, do not hesitate to return to the emergency department to be reevalua cat. [email or web address] [address] [place] [email or web address] [address] [place] [address] Yeison L [place] [email or web address] [address] Prescriptions: Hydrocodone/Acetaminophen [Vaughn 5-325 mg Tablet] 1 tab PO Q8H PRN #10 tablet PRN Reason: abdominal pain Tamsulosin HCl [Flomax 0.4 mg Cap.sr] 0.4 mg PO DAILY #7 cap.sr.24h Forms: Return to Work Referrals: [facility] [Provider Group] - Follow up in 3-5 days
[2018-11-08] MEDS ORDERED: FENTANYL CITRATE INJ/PF 100 MCG/2 ML AMPUL IV ONE (23:55)
--- NOTE | 2018-11-09 00:34 | RADIOLOGY REPORT (SQ) ---
EXAM DESCRIPTION: RadLex: CT ABDOMEN PELVIS WITHOUT IV CONTRAST CLINICAL HISTORY: 33 years Female; right flank pain, hx renal stones TECHNIQUE: CT of the abdomen and pelvis without contrast. All CT scans at this facility use dose modulation, iterative reconstruction, and/or weight based dosing when appropriate to reduce radiation dose to as low as reasonably achievable. COMPARISON: CT 03/28/2017 FINDINGS: Abdomen: Liver:No focal lesions. No intrahepatic ductal distention. Gallbladder: Surgically absent Pancreas:Within normal limits Spleen:Within normal limits Right kidney: Multiple calculi, all less than 3 mm. No hydronephrosis. No ureteral calculi. Left kidney: Multiple calculi, all less than 2 mm. No hydronephrosis. No ureteral calculi. Adrenal glands:Within normal limits Vascular structures: Mild scattered aortic calcifications. No aneurysm. Pelvis: Small bowel:No significant distention. Appendix:Within normal limits Colon:No distention or acute pericolonic edema. No free intraperitoneal fluid or air. Bones: No acute bone findings. Bladder: Nondistended. No calculi. Fixation screw again noted traversing the left sacroiliac joint. Uterus is unremarkable. No adnexal enlargement. Note that evaluation of the bowel and solid organs is somewhat limited due to lack of intravenous and oral contrast. IMPRESSION: 1. Multiple small bilateral renal calculi, all less than 2 to 3 mm in diameter. 2. No ureteral calculi or hydronephrosis. No bladder calculi. 3. Previous cholecystectomy
[2018-11-09 01:57] VITALS: BP 145/90
== END 2018-11-09 01:56 | disposition home or self-care (01) ==
LOC: ER 17:31
DX: N20.0 Calculus of kidney (principal); R10.9 Unspecified abdominal pain; R11.2 Nausea with vomiting, unspecified; R35.0 Frequency of micturition; F17.210 Nicotine dependence, cigarettes, uncomplicated; I10 Essential (primary) hypertension; Z88.2 Allergy status to sulfonamides; Z87.442 Personal history of urinary calculi; Z90.49 Acquired absence of other specified parts of digestive tract
CPT/HCPCS: 99284; 96361; 96374; 96375; 36415; 85025; 81025; 80053; 81001; 74176; J3010; J1885; J2405; J7030 ×2

== ENCOUNTER 2019-02-16 10:29 | Emergency (ER) | payer SELFPAY ==
[2019-02-16 12:19] LABS: ABSOLUTE LYMPHOCYTES (AUTO) 2.4 10^3/uL (0.5-4.7); ABSOLUTE MONOCYTES (AUTO) 0.5 10^3/uL (0.1-1.4); BASOPHILS % (AUTO) 0.3 % (0-2); EOSINOPHILS % (AUTO) 0.3 % (0-6); HEMATOCRIT 39.2 % (36.0-47.0); HEMOGLOBIN 13.3 g/dL (12.0-15.5); LYMPHOCYTES % (AUTO) 15.8 % (13-45); MEAN CORPUSCULAR HEMOGLOBIN 29.8 pg (27.0-33.4); MEAN CORPUSCULAR VOLUME 88 fl (80-97); MONOCYTES % (AUTO) 3.4 % (3-13); PLATELET COUNT 567 10^3/uL (150-450); RED BLOOD COUNT 4.48 10^6/uL (3.72-5.28); RED CELL DISTRIBUTION WIDTH 15.6 % (11.5-14.0); SEGMENTED NEUTROPHILS % (AUTO) 80.2 % (42-78); TOTAL CELLS COUNTED % (AUTO) 100 %
--- NOTE | 2019-02-16 12:36 | ER Document Report ---
ED General - General Chief Complaint: Abdominal Pain Stated Complaint: ABDOMINAL PAIN Time Seen by Provider: 02/16/19 12:34 Primary Care Provider: [facility] [Provider Group] - Follow up as needed UROLOGY [Provider Group] - Follow up as needed [facility] [Provider Group] - Follow up as needed Mode of Arrival: Medic Information source: Patient, Emergency Med Personnel Notes: This 33-year-old female with history of kidney stones and hypertension presents emergency department with complaints of left-sided flank pain. Reports she st arted her menses on Thursday. She started having pain at that time. She reports today the pain increased and while she was at work she passed out vomited one time. She reports she did not hit her head. She still little nauseated. She reports last time she had kidney stones and had to have a stent placed this exact same thing happened. She denies current diarrhea. She reports she has been having urinary frequency especially at night and the need to strain when she voids. TRAVEL OUTSIDE OF THE [place] IN LAST 30 DAYS: No - Related Data Allergies/Adverse Reactions: Sulfa (Sulfonamide Antibiotics) Allergy (Verified 02/16/19 10:36) Hives Past Medical History - General Information source: Patient Last Menstrual Period: current - Social History Smoking Status: Current Every Day Smoker Chew tobacco use (# tins/day): No Frequency of alcohol use: None Drug Abuse: None Family History: Arthritis, CVA, DM, Hyperlipidemia, Hypertension, Malignancy, Thyroid Disfunction. denies: CAD, COPD Patient has suicidal ideation: No Patient has homicidal ideation: No - Past Medical History Cardiac Medical History: Reports: Hx Hypertension Pulmonary Medical History: Reports: Hx Bronchitis Neurological Medical History: Reports: Hx Migraine Renal/ Medical History: Reports: Hx Kidney Stones, Hx Ovarian Cysts. Denies: Hx Peritoneal Dialysis Musculoskeletal Medical History: Reports Hx Musculoskeletal Deformity, Reports Hx Musculoskeletal Trauma Skin Medical History: Reports Hx Cellulitis Traumatic Medical History: Reports: Hx Fractures - Pelvis and L4, Hx Spine Fracture Past Surgical History: Reports: Hx Adenoidectomy, Hx Breast Surgery - Cysts, Hx Section, Hx Cholecystectomy, Hx Orthopedic Surgery - Rods and left hip, Hx Tonsillectomy, Hx Tubal Ligation, Hx Urinary Tract Surgery - stent - Immunizations Immunizations up to date: Yes Hx Diphtheria, Pertussis, Tetanus Vaccination: Yes - 2009 Physical Exam - Vital signs Vitals: Temp Pulse Resp BP Pulse Ox 98.2 F 93 16 138/93 H 100 02/16/19 14:13 02/16/19 14:13 02/16/19 14:13 02/16/19 14:13 02/16/19 14:13 Course - Re-evaluation Re-evalutation: 02/16/19 13:54 This 33-year-old female with history of kidney stones and hypertension presents emergency department with complaints of left-sided flank pain. Patient reports she passed out for the pain. Reports she was walking from the bathroom to the front at her job at the [employer] when she passed out from the pain. She reports the same thing happened last time she had a kidney stone and she had to have a stent placed. Patient reports she drinks Mountain Dew though she has cut down since she had her last kidney stone. Leukocytosis noted at 15. UA noted with leukocytes some WBCs. CT shows nonobstructive bilateral nephrolithiasis without evidence of hydronephrosis 02/16/19 12:06 02/16/19 12:03 MCV 88 fl (80-97) 02/16/19 12:06 MCH 29.8 pg (27.0-33.4) 02/16/19 12:06 MCHC 34.0 g/dL (32.0-36.0) 02/16/19 12:06 RDW 15.6 % (11.5-14.0) H 02/16/19 12:06 Seg Neutrophils % 80.2 % (42-78) H 02/16/19 12:06 Chloride 104 mmol/L (98-107) 02/16/19 12:03 Carbon Dioxide 27 mmol/L (22-30) 02/16/19 12:03 Anion Gap 9 (5-19) 02/16/19 12:03 Est GFR ( Amer) > 60 (>60) 02/16/19 12:03 Glucose 94 mg/dL (75-110) 02/16/19 12:03 Calcium 9.9 mg/dL (8.4-10.2) 02/16/19 12:03 Total Bilirubin 0.3 mg/dL (0.2-1.3) 02/16/19 12:03 AST 18 U/L (14-36) 02/16/19 12:03 Alkaline Phosphatase 108 U/L (38-126) 02/16/19 12:03 Total Protein 7.9 g/dL (6.3-8.2) 02/16/19 12:03 Albumin 4.5 g/dL (3.5-5.0) 02/16/19 12:03 Lipase 50.0 U/L (23-300) 02/16/19 12:03 Urine Color RED 02/16/19 12:19 Urine Appearance CLEAR 02/16/19 12:19 Urine pH 6.0 (5.0-9.0) 02/16/19 12:19 Ur Specific [place] 1.016 02/16/19 12:19 Urine Protein 100 mg/dL (NEGATIVE) H 02/16/19 12:19 Urine Glucose (UA) NEGATIVE mg/dL (NEGATIVE) 02/16/19 12: Urine Ketones NEGATIVE mg/dL (NEGATIVE) 02/16/19 12:19 Urine Blood LARGE (NEGATIVE) H 02/16/19 12:19 Urine Nitrite NEGATIVE (NEGATIVE) 02/16/19 12:19 Ur Leukocyte Esterase SMALL (NEGATIVE) H 02/16/19 12:19 Urine WBC (Auto) 85 /HPF 02/16/19 12:19 Urine RBC (Auto) >182 /HPF 02/16/19 12:19 Abdomen/Pelvis CT 02/16/19 12:38 IMPRESSION: Nonobstructive bilateral nephrolithiasis without evidence of hydronephrosis. No acute findings to explain left flank pain. - Vital Signs Vital signs: Temp Pulse Resp BP Pulse Ox 98.2 F 93 16 138/93 H 100 02/16/19 14:13 02/16/19 14:13 02/16/19 14:13 02/16/19 14:13 02/16/19 14:13 - Laboratory Result Diagrams: 02/16/19 12:06 02/16/19 12:03 Laboratory results interpreted by me: 02/16/19 02/16/19 12:06 12:19 WBC 15.0 H RDW 15.6 H Plt Count 567 H Absolute Neuts (auto) 12.0 H Seg Neutrophils % 80.2 H Urine Protein 100 H Urine Blood LARGE H Ur Leukocyte Esterase SMALL H - Diagnostic Test Radiology reviewed: Image reviewed, Reports reviewed Discharge - Discharge Clinical Impression: Flank pain UTI (urinary tract infection) Qualifiers: Urinary tract infection type: site unspecified Hematuria presence: with hematuria Qualified Code(s): N39.0 - Urinary tract infection, site not specified Condition: Stable Disposition: HOME, SELF-CARE Instructions: Flank Pain ([facility]), Flomax ([facility]), Nitrofurantoin ([facility]), Oral Narcotic Medication ([facility]), Urinary Tract Infection ([facility]) Additional Instructions: *You have been evaluated for Flank pain, UTI, history of kidney stones *A urine culture is pending. Should you need a different antibiotic you will be contacted within the next 3 to 4 days. *Take medication as prescribed *Drink lots of water avoid Mountain Dew *Follow up with a primary care provider or urologist within one week *Return to ED for worsening condition, changes, needs *Return to ED if not better in 24 hours Prescriptions: Tamsulosin HCl [Flomax 0.4 mg Cap.sr] 0.4 mg PO DAILY #7 cap.sr.24h Nitrofurantoin/Nitrofuran Mac [Macrobid 100 mg Capsule] 100 mg PO BID #20 capsule Oxycodone HCl/Acetaminophen [Percocet 5-325 mg Tablet] 1 tab PO ASDIR PRN #10 tablet PRN Reason: Forms: Return to Work Referrals: [facility] [Provider Group] - Follow up as needed UROLOGY [Provider Group] - Follow up as needed [facility] [Provider Group] - Follow up as needed
[2019-02-16 12:42] LABS: APPEARANCE,URINE CLEAR; BILIRUBIN,URINE NEGATIVE (NEGATIVE); COLOR,URINE RED; GLUCOSE, URINE NEGATIVE (NEGATIVE); KETONES,URINE NEGATIVE (NEGATIVE); LEUKOCYTE ESTERASE,URINE SMALL (NEGATIVE); NITRITE,URINE NEGATIVE (NEGATIVE); PROTEIN,URINE 100 mg/dL (NEGATIVE); URINE SPECIFIC GRAVITY 1.016; UROBILINOGEN,URINE NEGATIVE mg/dL (<2.0)
[2019-02-16 12:43] LABS: ALBUMIN 4.5 g/dL (3.5-5.0); ALKALINE PHOSPHATASE 108 U/L (38-126); ANION GAP 9 (5-19); ASPARTATE AMINO TRANSFERASE 18 U/L (14-36); BILIRUBIN,DIRECT 0.2 mg/dL (0.0-0.4); BILIRUBIN,TOTAL 0.3 mg/dL (0.2-1.3); BLOOD UREA NITROGEN 9 mg/dL (7-20); CALCIUM 9.9 mg/dL (8.4-10.2); CARBON DIOXIDE 27 mmol/L (22-30); CHLORIDE 104 mmol/L (98-107); GLUCOSE 94 mg/dL (75-110); POTASSIUM 4.5 mmol/L (3.6-5.0); TOTAL PROTEIN 7.9 g/dL (6.3-8.2)
--- NOTE | 2019-02-16 13:20 | RADIOLOGY REPORT (SQ) ---
EXAM DESCRIPTION: CT ABD/PELVIS NO ORAL OR IV COMPLETED DATE/TIME: 02/16/2019 1:01 pm REASON FOR STUDY: flank pain COMPARISON: 11/09/2018 TECHNIQUE: CT scan of the abdomen and pelvis performed without intravenous or oral contrast. Images reviewed with lung, soft tissue, and bone windows. Reconstructed coronal and sagittal MPR images revi ewed. All images stored on PACS. All CT scanners at this facility use dose modulation, iterative reconstruction, and/or weight based d osing when appropriate to reduce radiation dose to as low as reasonably achievable (ALARA). [facility]: Dose Right [facility]: CareDose [facility]: Dose Right [facility]: Teradose 4D [facility]: Smart [employer] RADIATION DOSE: CT Rad equipment meets quality standard of care and radiation dose reduction techniq ues were employed. CTDIvol: 6.8 mGy. DLP: 376 mGy-cm.mGy. LIMITATIONS: None. FINDINGS: LOWER CHEST: No significant findings. No nodules or infiltrates. NON-CONTRASTED LIVER, SPLEEN, ADRENALS: Evaluation limited by lack of IV contrast. No identified sign ificant masses. PANCREAS: No masses. No peripancreatic inflammatory changes. GALLBLADDER: Surgically absent. RIGHT KIDNEY AND URETER: No suspicious masses. Assessment limited by lack of IV contrast. Multiple small nonobstructive calculi. No hydronephrosis or hydroureter. LEFT KIDNEY AND URETER: No suspicious masses. Assessment limited by lack of IV contrast. Multiple s mall nonobstructive calculi. No hydronephrosis or hydroureter. AORTA AND RETROPERITONEUM: No aneurysm. No retroperitoneal masses or adenopathy. BOWEL AND PERITONEAL CAVITY: No obvious masses or inflammatory changes. No free fluid. APPENDIX: Normal. PELVIS, BLADDER, AND ABDOMINAL WALL:No abnormal masses. No free fluid. Bladder normal. BONES: Screw fixation of the left sacroiliac joint. OTHER: No other significant finding. IMPRESSION: Nonobstructive bilateral nephrolithiasis without evidence of hydronephrosis. No acute f indings to explain left flank pain. COMMENT: Quality ID # [id number]: Final reports with documentation of one or more dose reduction techniques (e.g., Automated exposure control, adjustment of the mA and/or kV according to patient size, use of iterative reconstruction technique) TECHNICAL DOCUMENTATION: JOB ID: [id number]- All Rights Reserved Reading location - IP/workstation name: [id number]
[2019-02-16] MEDS ORDERED: NITROFURANTOIN MONOHYD/M-CRYST 100 MG CAPSULE PO ONE (13:53)
[2019-02-16] MEDS ORDERED: ONDANSETRON 4 MG TAB.RAPDIS PO ONE (13:53)
[2019-02-16] MEDS ORDERED: TAMSULOSIN HCL 0.4 MG CAP.SR.24H PO ONE (13:53)
[2019-02-16] MEDS ORDERED: KETOROLAC TROMETHAMINE INJ/PF 30 MG/1 ML SDV IV ONE (13:53)
[2019-02-16] MEDS ORDERED: OXYCODONE-ACETAMINOPHEN 5-325 MG TABLET PO ONE (14:02)
[2019-02-16] MEDS ORDERED: ONDANSETRON ODT 4 MG TAB (6 TAB/ER DISP) PO PRN (14:12)
[2019-02-16 14:13] VITALS: BP 138/93
== END 2019-02-16 14:20 | disposition home or self-care (01) ==
LOC: ER 10:29
DX: N39.0 Urinary tract infection, site not specified (principal); R10.9 Unspecified abdominal pain; F17.200 Nicotine dependence, unspecified, uncomplicated; I10 Essential (primary) hypertension; Z88.2 Allergy status to sulfonamides; Z87.442 Personal history of urinary calculi; Z90.49 Acquired absence of other specified parts of digestive tract; Z98.51 Tubal ligation status
CPT/HCPCS: 99284; 36415; 87086; 83690; 85025; 81025; 80053; 81001; 74176; S0119; J8499

== ENCOUNTER 2019-05-16 18:28 | Emergency (ER) | payer SELFPAY ==
--- NOTE | 2019-05-16 19:48 | ER Document Report ---
ED Medical Screen (RME) - General Chief Complaint: Leg Pain Stated Complaint: LEG PAIN Time Seen by Provider: 05/16/19 19:30 Notes: Patient is a 34-year-old female with a history of hypertension who presents to the emergency department with a chief complaint of right leg swelling. Patient reports she does have a history of high blood pressure and intermittent bilateral leg swelling. Patient reports today she noticed more swelling to the right leg. Patient reports that this was different from her normal. Patient reports she does feel a tightness to her calf and a tingling to her foot. Patient concerned about possible blood clots. Patient reports she does smoke cigarettes daily. Patient reports she does not take any blood pressure medications as she did run out of this prescription does not have insurance. TRAVEL OUTSIDE OF THE [place] IN LAST 30 DAYS: No - Related Data Allergies/Adverse Reactions: Sulfa (Sulfonamide Antibiotics) Allergy (Verified 05/16/19 19:28) Hives Past Medical History - Social History Chew tobacco use (# tins/day): No Frequency of alcohol use: None Drug Abuse: None - Past Medical History Cardiac Medical History: Reports: Hx Hypertension Pulmonary Medical History: Reports: Hx Bronchitis Neurological Medical History: Reports: Hx Migraine Renal/ Medical History: Reports: Hx Kidney Stones, Hx Ovarian Cysts. Denies: Hx Peritoneal Dialysis Musculoskeltal Medical History: Reports Hx Musculoskeletal Deformity, Reports Hx Musculoskeletal Trauma Skin Medical History: Reports Hx Cellulitis Traumatic Medical History: Reports: Hx Fractures - Pelvis and L4, Hx Spine Fracture Past Surgical History: Reports: Hx Adenoidectomy, Hx Breast Surgery - Cysts, Hx Section, Hx Cholecystectomy, Hx Orthopedic Surgery - Rods and left hip, Hx Tonsillectomy, Hx Tubal Ligation, Hx Urinary Tract Surgery - stent - Immunizations Immunizations up to date: Yes Hx Diphtheria, Pertussis, Tetanus Vaccination: Yes - 2009 Physical Exam - Vital signs Vitals: Temp Pulse Resp BP Pulse Ox 98.4 F 105 H 18 146/91 H 97 05/16/19 19:06 05/16/19 19:06 05/16/19 19:06 05/16/19 19:06 05/16/19 19:06 Course - Re-evaluation Re-evalutation: 05/16/19 19:48 Patient has +1 nonpitting edema noted to the right lower extremity and right foot. Patient has a palpable +2 dorsalis pedis pulse. Patient does have jeans on and will require a thorough examination once on stretcher and in a gown. I have greeted and performed a rapid initial assessment of this patient. A comprehensive ED assessment and evaluation of the patient, analysis of test results and completion of the medical decision making process will be conducted by additional ED providers. - Vital Signs Vital signs: Temp Pulse Resp BP Pulse Ox 98.4 F 105 H 18 146/91 H 97 05/16/19 19:06 05/16/19 19:06 05/16/19 19:06 05/16/19 19:06 05/16/19 19:06
[2019-05-16 20:18] LABS: ABSOLUTE BASOPHILS # (AUTO) 0.2 10^3/uL (0.0-0.2); ABSOLUTE EOSINOPHILS # (AUTO) 0.1 10^3/uL (0.0-0.6); ABSOLUTE LYMPHOCYTES (AUTO) 5.9 10^3/uL (0.5-4.7); ABSOLUTE MONOCYTES (AUTO) 0.8 10^3/uL (0.1-1.4); ABSOLUTE NEUT (AUTO) 9.1 10^3/uL (1.7-8.2); BASOPHILS % (AUTO) 1.2 % (0-2); EOSINOPHILS % (AUTO) 0.8 % (0-6); HEMATOCRIT 37.5 % (36.0-47.0); HEMOGLOBIN 12.8 g/dL (12.0-15.5); LYMPHOCYTES % (AUTO) 36.4 % (13-45); MEAN CORPUSCULAR HEMOGLOBIN 30.3 pg (27.0-33.4); MEAN CORPUSCULAR HGB CONC 34.2 g/dL (32.0-36.0); MEAN CORPUSCULAR VOLUME 89 fl (80-97); MONOCYTES % (AUTO) 5.1 % (3-13); PLATELET COUNT 586 10^3/uL (150-450); RED BLOOD COUNT 4.23 10^6/uL (3.72-5.28); RED CELL DISTRIBUTION WIDTH 14.5 % (11.5-14.0); SEGMENTED NEUTROPHILS % (AUTO) 56.5 % (42-78); TOTAL CELLS COUNTED % (AUTO) 100 %; WHITE BLOOD COUNT 16.1 10^3/uL (4.0-10.5)
[2019-05-16 20:25] LABS: ALBUMIN 4.6 g/dL (3.5-5.0); ALKALINE PHOSPHATASE 262 U/L (38-126); ANION GAP 11 (5-19); ASPARTATE AMINO TRANSFERASE 27 U/L (14-36); BILIRUBIN,DIRECT 0.3 mg/dL (0.0-0.4); BILIRUBIN,TOTAL 0.3 mg/dL (0.2-1.3); BLOOD UREA NITROGEN 6 mg/dL (7-20); CALCIUM 10.2 mg/dL (8.4-10.2); CARBON DIOXIDE 27 mmol/L (22-30); CHLORIDE 103 mmol/L (98-107); GLUCOSE 86 mg/dL (75-110); TOTAL PROTEIN 8.3 g/dL (6.3-8.2)
--- NOTE | 2019-05-16 21:32 | ER Document Report ---
ED General - General Chief Complaint: Leg Pain Stated Complaint: LEG PAIN Time Seen by Provider: 05/16/19 19:30 TRAVEL OUTSIDE OF THE [place] IN LAST 30 DAYS: No - HPI Notes: Patient is a 34-year-old female who presents the emergency department for evaluation of right leg pain and swelling. She states she really has pain and swelling in her legs constantly, but today she noticed that her right leg is mor e swollen with increased pain. She does have a family history of blood clots. She has no personal history of blood clots. She has no personal history of cancer, prolonged immobilization, recent surgery, or exogenous hormone use. She denies any chest pain or shortness of breath. She states her pain is an aching, points to the back of her calf, states is worsened by elevation as well as walking. Nothing seems to make it better. - Related Data Allergies/Adverse Reactions: Sulfa (Sulfonamide Antibiotics) Allergy (Verified 05/16/19 19:28) Hives Past Medical History - General Information source: Patient - Social History Smoking Status: Current Every Day Smoker Chew tobacco use (# tins/day): No Frequency of alcohol use: None Drug Abuse: None Family History: Arthritis, CVA, DM, Hyperlipidemia, Hypertension, Malignancy, Thyroid Disfunction. denies: CAD, COPD Patient has suicidal ideation: No Patient has homicidal ideation: No - Past Medical History Cardiac Medical History: Reports: Hx Hypertension - Currently untreated as patient does not have insurance Pulmonary Medical History: Reports: Hx Bronchitis Neurological Medical History: Reports: Hx Migraine Renal/ Medical History: Reports: Hx Kidney Stones, Hx Ovarian Cysts. Denies: Hx Peritoneal Dialysis Musculoskeletal Medical History: Reports Hx Musculoskeletal Deformity, Reports Hx Musculoskeletal Trauma Skin Medical History: Reports Hx Cellulitis Traumatic Medical History: Reports: Hx Fractures - Pelvis and L4, Hx Spine Fracture Past Surgical History: Reports: Hx Adenoidectomy, Hx Breast Surgery - Cysts, Hx Section, Hx Cholecystectomy, Hx Orthopedic Surgery - Rods and left hip, Hx Tonsillectomy, Hx Tubal Ligation, Hx Urinary Tract Surgery - stent - Immunizations Immunizations up to date: Yes Hx Diphtheria, Pertussis, Tetanus Vaccination: Yes - 2009 Review of Systems - Review of Systems Constitutional: No symptoms reported EENT: No symptoms reported Cardiovascular: No symptoms reported Respiratory: No symptoms reported Gastrointestinal: No symptoms reported Genitourinary: No symptoms reported Musculoskeletal: See HPI Skin: No symptoms reported Neurological/Psychological: No symptoms reported Physical Exam - Vital signs Vitals: Temp Pulse Resp BP Pulse Ox 98.4 F 105 H 18 146/91 H 97 05/16/19 19:06 05/16/19 19:06 05/16/19 19:06 05/16/19 19:06 05/16/19 19:06 - Notes Notes: Vital signs reviewed, please refer to chart. Head is normocephalic, atraumatic. Pupils equal round, reactive to light. Neck is supple without meningismus. Heart is regular rate and rhythm. Lungs are clear to auscultation bilaterally. Abdomen is soft, nontender, normoactive bowel sounds throughout. Extremities without cyanosis, clubbing. Patient does have 2+ edema to bilateral lower extremities, positive posterior calf tenderness on the right. Peripheral pulses are equal. Skin is warm and dry. Patient is awake, alert, neurological exam is nonfocal. Course - Re-evaluation Re-evalutation: 05/16/19 21:30 Patient presents to the emergency department for evaluation. She had laboratory investigations and imaging as ordered through triage. Her Doppler was found to be negative. Findings were explained to the patient. She needs to follow-up with her primary care provider. If her swelling persists, she may need to have a repeat Doppler. She voiced understanding to this. Otherwise she is to follow-up with primary care next week, return to the ED with worsening or new concerning symptoms of any sort. - Vital Signs Vital signs: Temp Pulse Resp BP Pulse Ox 98.4 F 105 H 18 146/91 H 97 05/16/19 19:06 05/16/19 19:06 05/16/19 19:06 05/16/19 19:06 05/16/19 19:06 - Laboratory Result Diagrams: 05/16/19 19:55 05/16/19 19:55 Laboratory results interpreted by me: 05/16/19 05/16/19 19:55 19:55 WBC 16.1 H RDW 14.5 H Plt Count 586 H Absolute Neuts (auto) 9.1 H Absolute Lymphs (auto) 5.9 H BUN 6 L Alkaline Phosphatase 262 H Total Protein 8.3 H - Diagnostic Test Radiology reviewed: Pending Radiology results interpreted by me: 05/16/19 21:30 Preliminary report given by jeanette Soto, as being a negative DVT study Discharge - Discharge Clinical Impression: Right leg pain, Edema of right lower extremity Condition: Stable Disposition: HOME, SELF-CARE Instructions: Edema, Peripheral ([facility]) Additional Instructions: No clear cause was found for your symptoms tonight. Your Doppler showed no signs of clot. If your symptoms persist, you may need to have a repeat study done in 1 week. If you develop chest pain, difficulty breathing, or any other new or concerning symptoms, please return immediately to the emergency department for evaluation. Otherwise, follow-up with primary care next week. Forms: Return to Work
[2019-05-16] MEDS ORDERED: OXYCODONE-ACETAMINOPHEN 5-325 MG TABLET PO ONE (21:51)
[2019-05-16 21:57] VITALS: BP 142/86
--- NOTE | 2019-05-17 11:46 | XCELERA REPORT ---
[address] [facility] [address] Lower Extremity Venous Evaluation Procedure: Color flow and duplex imaging of the veins of the right lower extremity as well as the left Common Femoral vein. Right Sided Venous Evaluation Normal vessel filling wall to wall, compression and augmentation as well as Colour flow down to the infrageniculate veins. Left Sided Venous Evaluation The left common femoral vein is fully compressible. Spontaneous and phasic flow is present in the left common femoral vein. Interpretation Summary No duplex evidence of DVT or obstruction in the right lower extremity nor in the left Common Femoral vein. Name: IVETTE PIÑA Age: 34 yrs Gender: Female : 1985 Patient Status: Emergency Patient Location: ER Study Date: 05/16/2019 08:18 PM Reason For Study: right lower leg swelling Ordering Physician: DIVINA STEWART Performed By: Brittany Cedeno : DIVINA STEWART > Edi Miller
== END 2019-05-16 22:05 | disposition home or self-care (01) ==
LOC: ER 18:28
DX: M79.604 Pain in right leg (principal); R60.0 Localized edema; I10 Essential (primary) hypertension; F17.200 Nicotine dependence, unspecified, uncomplicated; Z88.2 Allergy status to sulfonamides; Z82.49 Family history of ischemic heart disease and other diseases of the circulatory system
CPT/HCPCS: 36415; 80053; 84484; 85025; 93971; 99284

== ENCOUNTER 2019-06-06 19:36 | Emergency (ER) | payer SELFPAY ==
[2019-06-06] MEDS ORDERED: MORPHINE SULFATE 10 MG/ML INJ IV ONE (22:20)
[2019-06-06] MEDS ORDERED: ONDANSETRON 4 MG TAB.RAPDIS PO ONE (22:20)
[2019-06-06] MEDS ORDERED: KETOROLAC TROMETHAMINE 60 MG/2 ML SDV IM ONE (22:21)
--- NOTE | 2019-06-06 22:27 | ER Document Report ---
ED Medical Screen (RME) - General Chief Complaint: Possible Kidney Stone Stated Complaint: LEFT LOWER ABDOMINAL PAIN Time Seen by Provider: 06/06/19 22:12 TRAVEL OUTSIDE OF THE [place] IN LAST 30 DAYS: No - HPI Notes: 06/06/19 22:38 34-year-old female to the emergency department with complaints of left flank and left lower quadrant abdominal pain that is been going on for 3 days. She states this feels a lot like her prior kidney stones. She has nausea but no vomiting. She has not noticed any blood in her urine. She has not been running a fever or chills. She states that she has been having frequent urination. She has had to have a stent in the past. I performed a brief medical exam on the patient determined that she will need further evaluation by main side provider. I placed initial orders to help expedite in her care. - Related Data Allergies/Adverse Reactions: Sulfa (Sulfonamide Antibiotics) Allergy (Verified 06/06/19 22:14) Hives Home Medications: bp med. robaxin Past Medical History - Past Medical History Cardiac Medical History: Reports: Hx Hypertension - Currently untreated as patient does not have insurance Pulmonary Medical History: Reports: Hx Bronchitis Neurological Medical History: Reports: Hx Migraine Renal/ Medical History: Reports: Hx Kidney Stones, Hx Ovarian Cysts. Denies: Hx Peritoneal Dialysis Musculoskeltal Medical History: Reports Hx Musculoskeletal Deformity, Reports Hx Musculoskeletal Trauma Skin Medical History: Reports Hx Cellulitis Traumatic Medical History: Reports: Hx Fractures - Pelvis and L4, Hx Spine Fracture Past Surgical History: Reports: Hx Adenoidectomy, Hx Breast Surgery - Cysts, Hx Section, Hx Cholecystectomy, Hx Orthopedic Surgery - Rods and left hip, Hx Tonsillectomy, Hx Tubal Ligation, Hx Urinary Tract Surgery - stent - Immunizations Immunizations up to date: Yes Hx Diphtheria, Pertussis, Tetanus Vaccination: Yes - 2009 Physical Exam - Vital signs Vitals: Temp Pulse Resp BP Pulse Ox 98.3 F 146 H 16 130/99 H 91 L 06/06/19 19:48 06/06/19 19:48 06/06/19 19:48 06/06/19 19:48 06/06/19 19:48 Course - Vital Signs Vital signs: Temp Pulse Resp BP Pulse Ox 98.3 F 146 H 16 130/99 H 91 L 06/06/19 19:48 06/06/19 19:48 06/06/19 19:48 06/06/19 19:48 06/06/19 19:48
[2019-06-06] MEDS ORDERED: NORMAL SALINE 1000 ML 1,000 ML IV ONE (22:39)
[2019-06-06 22:49] LABS: ABSOLUTE BASOPHILS # (AUTO) 0.1 10^3/uL (0.0-0.2); ABSOLUTE EOSINOPHILS # (AUTO) 0.1 10^3/uL (0.0-0.6); ABSOLUTE LYMPHOCYTES (AUTO) 5.1 10^3/uL (0.5-4.7); ABSOLUTE MONOCYTES (AUTO) 0.5 10^3/uL (0.1-1.4); ABSOLUTE NEUT (AUTO) 6.2 10^3/uL (1.7-8.2); BASOPHILS % (AUTO) 1.1 % (0-2); EOSINOPHILS % (AUTO) 0.5 % (0-6); HEMATOCRIT 39.8 % (36.0-47.0); HEMOGLOBIN 13.9 g/dL (12.0-15.5); LYMPHOCYTES % (AUTO) 42.2 % (13-45); MEAN CORPUSCULAR HEMOGLOBIN 30.9 pg (27.0-33.4); MEAN CORPUSCULAR VOLUME 89 fl (80-97); MONOCYTES % (AUTO) 4.5 % (3-13); PLATELET COUNT 534 10^3/uL (150-450); RED BLOOD COUNT 4.49 10^6/uL (3.72-5.28); RED CELL DISTRIBUTION WIDTH 13.9 % (11.5-14.0); SEGMENTED NEUTROPHILS % (AUTO) 51.7 % (42-78); TOTAL CELLS COUNTED % (AUTO) 100 %; WHITE BLOOD COUNT 12.1 10^3/uL (4.0-10.5)
[2019-06-06 23:07] LABS: ALBUMIN 4.4 g/dL (3.5-5.0); ALKALINE PHOSPHATASE 149 U/L (38-126); ANION GAP 13 (5-19); ASPARTATE AMINO TRANSFERASE 20 U/L (14-36); BILIRUBIN,DIRECT 0.3 mg/dL (0.0-0.4); BILIRUBIN,TOTAL 0.4 mg/dL (0.2-1.3); BLOOD UREA NITROGEN 10 mg/dL (7-20); CALCIUM 10.1 mg/dL (8.4-10.2); CARBON DIOXIDE 24 mmol/L (22-30); CHLORIDE 104 mmol/L (98-107); GLUCOSE 92 mg/dL (75-110); TOTAL PROTEIN 7.8 g/dL (6.3-8.2)
--- NOTE | 2019-06-06 23:24 | RADIOLOGY REPORT (SQ) ---
EXAM DESCRIPTION: US RETROPERITONEUM COMPLETED DATE/TME: 06/06/2019 22:21 CLINICAL HISTORY: 34 years, Female, flank pain, hx of kidney stones COMPARISON: Prior CT from 02/16/2019 TECHNIQUE: Axial 2-D grayscale images of the retroperitoneum were acquired. Doppler was utilized. LIMITATIONS: None. FINDINGS: Right kidney measures 11.3 x 5.2 x 4.8 cm in size. It appears normal in echogenicity. However, it appears to contain a linear echogenic focus located about the lower pole measuring 0.6 cm in size, raising the possibility of nephrolithiasis. Left kidney measures 11.5 x 4.8 x 5.2 cm in size. It contains a 0.6 cm echogenic focus about the interpolar region. There is no evidence of hydronephrosis. The urinary bladder is collapsed as the patient had recently voided. Limited imaging of the left adnexa reveals a 4.4 x 4.1 x 4.7 cm hypoechoic lesion likely originating from the left ovary. IMPRESSION: Suspect bilateral nephrolithiasis. No evidence of hydronephrosis. 4.7 cm indeterminate ovarian cyst though likely a hemorrhagic cyst. Recommend pelvic US follow-up in 6-12 weeks; if unchanged, continue follow-up with US OR MRI with IV contrast - if follow-up studies do not confirm endometrioma or dermoid, consider surgical evaluation. If cyst has internal nodule without blood flow/enhancing, recommend pelvic MRI with IV contrast or surgical evaluation. Reference: Radiology 2010 Jan;256(3):946- copyright 2010 [employer]- All Rights Reserved
--- NOTE | 2019-06-06 23:56 | RADIOLOGY REPORT (SQ) ---
EXAM DESCRIPTION: US PELVIS TRANSVAGINAL COMPLETED DATE/TME: 06/06/2019 23:06 CLINICAL HISTORY: 34 years, Female, lesion in left pelvis COMPARISON: None. TECHNIQUE: Transvaginal imaging. 37 static images. Additional cine loop LIMITATIONS: None. FINDINGS: Uterus measures 8.5 x 5.6 x 4.5 cm. It appears homogeneous. Endometrial stripe complex measures 8 mm, which appears normal. The cervix measures 3 cm. It is close. Right ovary is not visualized. Left ovary measures 4.6 x 4.5 x 3.3 cm. Both color and spectral Doppler flow is identified. Additionally a complex cystic appearing lesion is seen within the ovary measuring 4 cm in greatest dimension. This may represent a hemorrhagic cyst. IMPRESSION: Right ovary is not identified. Complex cyst of the left ovary, perhaps are present in hemorrhagic cyst. Follow-up imaging is advised after 2 menstrual periods. copyright 2010 [employer] [facility] [employer]- All Rights Reserved
[2019-06-07 00:16] LABS: APPEARANCE,URINE SLIGHTLY-CLOUDY; BILIRUBIN,URINE SMALL (NEGATIVE); COLOR,URINE YELLOW; GLUCOSE, URINE NEGATIVE (NEGATIVE); KETONES,URINE TRACE mg/dL (NEGATIVE); LEUKOCYTE ESTERASE,URINE NEGATIVE (NEGATIVE); NITRITE,URINE NEGATIVE (NEGATIVE); PROTEIN,URINE 30 mg/dL (NEGATIVE); UROBILINOGEN,URINE NEGATIVE mg/dL (<2.0)
--- NOTE | 2019-06-07 00:32 | ER Document Report ---
ED General - General Chief Complaint: Possible Kidney Stone Stated Complaint: LEFT LOWER ABDOMINAL PAIN Time Seen by Provider: 06/06/19 22:12 TRAVEL OUTSIDE OF THE [place] IN LAST 30 DAYS: No - HPI Notes: Patient is a 34-year-old female who presents to the emergency department for evaluation of left flank pain. She states this started about 3 days ago. It was intermittent, is now constant. She describes it as sharp and stabbing, states it feels reminiscent of her kidney stones in the past. She has some urinary frequency. She denies any dysuria. She states she is had some chills and nausea but denies any emesis. No tyshawn hematuria. Normal bowel movements. No cough. No vaginal discharge. - Related Data Allergies/Adverse Reactions: Sulfa (Sulfonamide Antibiotics) Allergy (Verified 06/06/19 22:14) Hives Home Medications: bp med. robaxin Past Medical History - General Information source: Patient - Social History Smoking Status: Current Every Day Smoker Frequency of alcohol use: None Family History: Arthritis, CVA, DM, Hyperlipidemia, Hypertension, Malignancy, Thyroid Disfunction. denies: CAD, COPD Patient has suicidal ideation: No Patient has homicidal ideation: No - Past Medical History Cardiac Medical History: Reports: Hx Hypertension Pulmonary Medical History: Reports: Hx Bronchitis Neurological Medical History: Reports: Hx Migraine Renal/ Medical History: Reports: Hx Kidney Stones, Hx Ovarian Cysts. Denies: Hx Peritoneal Dialysis Musculoskeletal Medical History: Reports Hx Musculoskeletal Deformity, Reports Hx Musculoskeletal Trauma Skin Medical History: Reports Hx Cellulitis Traumatic Medical History: Reports: Hx Fractures - Pelvis and L4, Hx Spine Fracture Past Surgical History: Reports: Hx Adenoidectomy, Hx Breast Surgery - Cysts, Hx Section, Hx Cholecystectomy, Hx Orthopedic Surgery - Rods and left hip, Hx Tonsillectomy, Hx Tubal Ligation, Hx Urinary Tract Surgery - stent - Immunizations Immunizations up to date: Yes Hx Diphtheria, Pertussis, Tetanus Vaccination: Yes - 2009 Review of Systems - Review of Systems Constitutional: See HPI EENT: No symptoms reported Cardiovascular: No symptoms reported Respiratory: No symptoms reported Gastrointestinal: See HPI Genitourinary: See HPI Female Genitourinary: No symptoms reported Musculoskeletal: No symptoms reported Skin: No symptoms reported Neurological/Psychological: No symptoms reported Physical Exam - Vital signs Vitals: Temp Pulse Resp BP Pulse Ox 98.3 F 146 H 16 130/99 H 91 L 06/06/19 19:48 06/06/19 19:48 06/06/19 19:48 06/06/19 19:48 06/06/19 19:48 - Notes Notes: This is a 34-year-old female who appears older than her stated age, in no acute distress. Vital signs reviewed, please refer to chart. Head is normocephalic, atraumatic. Pupils equal round, reactive to light. Neck is supple without meningismus. Heart is regular rate and rhythm. Lungs are clear to auscultation bilaterally. Abdomen is soft, moderately tender in the left upper and left lower quadrants without rebound or guarding, normoactive bowel sounds throughout. Extremities without cyanosis, clubbing. Posterior calves are nontender. Peripheral pulses are equal. Skin is warm and dry. Patient is awake, alert, neurological exam is nonfocal. Course - Re-evaluation Re-evalutation: 06/07/19 00:31 Patient presents the emergency department for evaluation. She laboratory investigations and medications, as well as imaging, ordered through triage. Patient has had some improvement. Her labs are largely unremarkable, still awaiting urinalysis. Imaging failed to reveal any significant hydronephrosis. She does have a left ovarian cyst, and she was notified of the need for follow- up given its complexity and size. She voiced understanding. We will continue t o monitor. 06/07/19 01:25 Urinalysis fails to reveal a significant amount of blood. To me her pain is more likely related to her ovarian cyst. She sent home with a sixpack of [place], prescription strength anti-inflammatory, and referral for follow-up with primary care/[facility]. She is to return to the ED with worsening. - Vital Signs Vital signs: Temp Pulse Resp BP Pulse Ox 98.3 F 146 H 14 134/97 H 96 06/06/19 19:48 06/06/19 19:48 06/07/19 00:03 06/06/19 23:40 06/07/19 00:03 - Laboratory Result Diagrams: 06/06/19 22:36 06/06/19 22:36 Laboratory results interpreted by me: 06/06/19 06/06/19 06/06/19 22:36 22:36 22:36 WBC 12.1 H Plt Count 534 H Absolute Lymphs (auto) 5.1 H Alkaline Phosphatase 149 H Urine Protein 30 H Urine Ketones TRACE H Urine Blood MODERATE H Urine Bilirubin SMALL H - Diagnostic Test Radiology reviewed: Reports reviewed Radiology results interpreted by me: 06/07/19 00:31 Renal Ultrasound 06/06/19 22:21 IMPRESSION: Suspect bilateral nephrolithiasis. No evidence of hydronephrosis. 4.7 cm indeterminate ovarian cyst though likely a hemorrhagic cyst. Recommend pelvic US follow-up in 6-12 weeks; if unchanged, continue follow-up with US OR MRI with IV contrast - if follow-up studies do not confirm endometrioma or dermoid, consider surgical evaluation. If cyst has internal nodule without blood flow/enhancing, recommend pelvic MRI with IV contrast or surgical evaluation. Reference: Radiology 2010 Sep;256(3):943-54 copyright 2010 [employer]- All Rights Reserved Transvaginal US 06/06/19 23:06 IMPRESSION: Right ovary is not identified. Complex cyst of the left ovary, perhaps are present in hemorrhagic cyst. Follow-up imaging is advised after 2 menstrual periods. copyright 2010 [employer]- All Rights Reserved Discharge - Discharge Clinical Impression: Left flank pain, Left ovarian cyst Condition: Stable Disposition: HOME, SELF-CARE Instructions: Ovarian Cyst ([facility]), Flank Pain ([facility]) Additional Instructions: Given the size and qualities of your cyst, it is recommended that you have a repeat ultrasound or follow-up in 2 to 3 months for further evaluation. No significant blood or other findings consistent with a kidney stone were found on your evaluation today. Take medications as prescribed. Watch for dizziness and drowsiness with the [place], as well as constipation. Be sure to take Naprosyn with food. Follow-up with primary care as well as [facility] in regards to these issues. Return to the emergency department for worsening or new concerning symptoms of any sort.
[2019-06-07] MEDS ORDERED: HYDROCODONE/ACETAMINOPHEN 5-325 MG (6 TAB/ER DISP) PO PRN (01:25)
[2019-06-07] MEDS ORDERED: KETOROLAC TROMETHAMINE INJ/PF 30 MG/1 ML SDV IV ONE (01:28)
[2019-06-07 01:38] VITALS: BP 128/92
--- NOTE | 2019-06-07 09:45 | EKG REPORT ---
SEVERITY:- NORMAL ECG - SINUS RHYTHM : Confirmed by: Bayron Tinsley 07-Jun-2019 09:44:49
== END 2019-06-07 01:38 | disposition home or self-care (01) ==
LOC: ER 19:36
DX: N83.202 Unspecified ovarian cyst, left side (principal); R10.30 Lower abdominal pain, unspecified; F17.200 Nicotine dependence, unspecified, uncomplicated; I10 Essential (primary) hypertension; Z90.49 Acquired absence of other specified parts of digestive tract; Z88.2 Allergy status to sulfonamides
CPT/HCPCS: 93005; 99284; 96361; 96374; 36415; 85025; 81025; 80053; 81001; 76770; 76830; 93976; 93010; S0119; J1885; J2270; J7030

== ENCOUNTER 2019-06-18 16:51 | Emergency (ER) | payer SELFPAY ==
[2019-06-18] MEDS ORDERED: KETOROLAC TROMETHAMINE INJ/PF 30 MG/1 ML SDV IV ONE (17:24)
[2019-06-18] MEDS ORDERED: ONDANSETRON HCL INJ/PF 4 MG/2 ML SDV IV ONE (17:24)
--- NOTE | 2019-06-18 17:25 | ER Document Report ---
ED Medical Screen (RME) - General Chief Complaint: Pelvic Pain Stated Complaint: PELVIC PAIN Time Seen by Provider: 06/18/19 17:24 Mode of Arrival: Ambulatory Information source: Patient Notes: 34-year-old female patient presented emergency department chief complaint of left lower quadrant abdominal pain. Patient reports this is been ongoing for several weeks with worsening over the last few days. She reports associated nausea. She states she was seen here recently and diagnosed with a left ovarian cyst. She states she was told to come back if she cannot tolerate the pain anymore. Exam: Tenderness of the left lower quadrant with palpation. Exam limited due to position seated in triage. I have greeted and performed a rapid initial assessment of this patient. A comprehensive ED assessment and evaluation of the patient, analysis of test results and completion of the medical decision making process will be conducted by additional ED providers. I have specifically instructed the patient or family members with the patient to immediately return to any nursing staff should anything change in the patient's condition or with their chief complaint. TRAVEL OUTSIDE OF THE [place] IN LAST 30 DAYS: No - Related Data Allergies/Adverse Reactions: Sulfa (Sulfonamide Antibiotics) Allergy (Verified 06/06/19 22:14) Hives Past Medical History - Past Medical History Cardiac Medical History: Reports: Hx Hypertension Pulmonary Medical History: Reports: Hx Bronchitis Neurological Medical History: Reports: Hx Migraine Renal/ Medical History: Reports: Hx Kidney Stones, Hx Ovarian Cysts. Denies: Hx Peritoneal Dialysis Musculoskeltal Medical History: Reports Hx Musculoskeletal Deformity, Reports Hx Musculoskeletal Trauma Skin Medical History: Reports Hx Cellulitis Traumatic Medical History: Reports: Hx Fractures - Pelvis and L4, Hx Spine Fracture Past Surgical History: Reports: Hx Adenoidectomy, Hx Breast Surgery - Cysts, Hx Section, Hx Cholecystectomy, Hx Orthopedic Surgery - Rods and left hip, Hx Tonsillectomy, Hx Tubal Ligation, Hx Urinary Tract Surgery - stent - Immunizations Immunizations up to date: Yes Hx Diphtheria, Pertussis, Tetanus Vaccination: Yes - 2009 Physical Exam - Vital signs Vitals: Temp Pulse Resp BP Pulse Ox 99.1 F 103 H 16 134/89 H 98 06/18/19 17:07 06/18/19 17:07 06/18/19 17:07 06/18/19 17:07 06/18/19 17:07 Course - Vital Signs Vital signs: Temp Pulse Resp BP Pulse Ox 99.1 F 103 H 16 134/89 H 98 06/18/19 17:07 06/18/19 17:07 06/18/19 17:07 06/18/19 17:07 06/18/19 17:07
[2019-06-18 17:48] LABS: ABSOLUTE BASOPHILS # (AUTO) 0.1 10^3/uL (0.0-0.2); ABSOLUTE EOSINOPHILS # (AUTO) 0.1 10^3/uL (0.0-0.6); ABSOLUTE LYMPHOCYTES (AUTO) 3.9 10^3/uL (0.5-4.7); ABSOLUTE MONOCYTES (AUTO) 0.5 10^3/uL (0.1-1.4); BASOPHILS % (AUTO) 0.8 % (0-2); EOSINOPHILS % (AUTO) 0.9 % (0-6); HEMATOCRIT 39.7 % (36.0-47.0); HEMOGLOBIN 13.6 g/dL (12.0-15.5); LYMPHOCYTES % (AUTO) 40.3 % (13-45); MEAN CORPUSCULAR HEMOGLOBIN 30.3 pg (27.0-33.4); MEAN CORPUSCULAR HGB CONC 34.3 g/dL (32.0-36.0); MEAN CORPUSCULAR VOLUME 88 fl (80-97); MONOCYTES % (AUTO) 5.7 % (3-13); PLATELET COUNT 528 10^3/uL (150-450); SEGMENTED NEUTROPHILS % (AUTO) 52.3 % (42-78); TOTAL CELLS COUNTED % (AUTO) 100 %; WHITE BLOOD COUNT 9.6 10^3/uL (4.0-10.5)
[2019-06-18 18:05] LABS: ALBUMIN 4.2 g/dL (3.5-5.0); ALKALINE PHOSPHATASE 101 U/L (38-126); ANION GAP 9 (5-19); ASPARTATE AMINO TRANSFERASE 18 U/L (14-36); BILIRUBIN,DIRECT 0.3 mg/dL (0.0-0.4); BILIRUBIN,TOTAL 0.3 mg/dL (0.2-1.3); BLOOD UREA NITROGEN 10 mg/dL (7-20); CALCIUM 9.9 mg/dL (8.4-10.2); CARBON DIOXIDE 28 mmol/L (22-30); CHLORIDE 105 mmol/L (98-107); GLUCOSE 92 mg/dL (75-110); POTASSIUM 4.3 mmol/L (3.6-5.0); TOTAL PROTEIN 7.6 g/dL (6.3-8.2)
[2019-06-18 18:05] LABS: AMORPHOUS SEDIMENT,URINE TRACE /HPF; APPEARANCE,URINE CLOUDY; BILIRUBIN,URINE NEGATIVE (NEGATIVE); COLOR,URINE YELLOW; GLUCOSE, URINE NEGATIVE (NEGATIVE); KETONES,URINE NEGATIVE (NEGATIVE); LEUKOCYTE ESTERASE,URINE NEGATIVE (NEGATIVE); NITRITE,URINE NEGATIVE (NEGATIVE); PROTEIN,URINE 30 mg/dL (NEGATIVE); URINE SPECIFIC GRAVITY 1.016; UROBILINOGEN,URINE NEGATIVE mg/dL (<2.0)
--- NOTE | 2019-06-18 18:16 | ER Document Report ---
ED GI/ - General Chief Complaint: Pelvic Pain Stated Complaint: PELVIC PAIN Time Seen by Provider: 06/18/19 17:24 Primary Care Provider: [facility] [Provider Group] - Follow up as needed [facility] [Provider Group] - Follow up as needed Mode of Arrival: Ambulatory Notes: Patient is a 34-year-old female who presents emergency department with a chief complaint of left lower quadrant pain. Patient reports she has had left lower quadrant pain ongoing for several weeks but worse over the past few days. Patient reports 2 weeks ago she was recently diagnosed with a left ovarian hemorrhagic cyst. Patient reports last menstrual cycle was 2 weeks ago when she was diagnosed. Patient reports her menstrual cycles are very irregular. Patient reports about 1 week ago she had an increase in her vaginal discharge with a slight odor. Patient reports that the color is the same but there is increased in amount. Patient also reports urinary frequency. Patient denies fever. Patient denies vaginal bleeding. Patient reports she has not taken anything for her discomfort at home. TRAVEL OUTSIDE OF THE [place] IN LAST 30 DAYS: No - Related Data Allergies/Adverse Reactions: Sulfa (Sulfonamide Antibiotics) Allergy (Verified 06/06/19 22:14) Hives Home Medications: BP meds Past Medical History - General Information source: Patient - Social History Smoking Status: Current Every Day Smoker Frequency of alcohol use: None Drug Abuse: None Lives with: Spouse/Significant other Family History: Arthritis, CVA, DM, Hyperlipidemia, Hypertension, Malignancy, Thyroid Disfunction. denies: CAD, COPD Patient has suicidal ideation: No Patient has homicidal ideation: No - Past Medical History Cardiac Medical History: Reports: Hx Hypertension Pulmonary Medical History: Reports: Hx Bronchitis EENT Medical History: Reports: None Neurological Medical History: Reports: Hx Migraine Endocrine Medical History: Reports: None Renal/ Medical History: Reports: Hx Kidney Stones, Hx Ovarian Cysts. Denies: Hx Peritoneal Dialysis Malignancy Medical History: Reports: None GI Medical History: Reports: None Musculoskeletal Medical History: Reports Hx Musculoskeletal Deformity, Reports Hx Musculoskeletal Trauma Skin Medical History: Reports Hx Cellulitis Psychiatric Medical History: Reports: None Traumatic Medical History: Reports: Hx Fractures - Pelvis and L4, Hx Spine Fracture Infectious Medical History: Reports: None Past Surgical History: Reports: Hx Adenoidectomy, Hx Breast Surgery - Cysts, Hx Section, Hx Cholecystectomy, Hx Orthopedic Surgery - Rods and left hip, Hx Tonsillectomy, Hx Tubal Ligation, Hx Urinary Tract Surgery - stent - Immunizations Immunizations up to date: Yes Hx Diphtheria, Pertussis, Tetanus Vaccination: Yes - 2009 Review of Systems - Review of Systems Constitutional: No symptoms reported EENT: No symptoms reported Cardiovascular: No symptoms reported Respiratory: No symptoms reported Gastrointestinal: No symptoms reported Genitourinary: See HPI Female Genitourinary: See HPI Musculoskeletal: No symptoms reported Skin: No symptoms reported Hematologic/Lymphatic: No symptoms reported Neurological/Psychological: No symptoms reported Physical Exam - Vital signs Vitals: Temp Pulse Resp BP Pulse Ox 99.1 F 103 H 16 134/89 H 98 06/18/19 17:07 06/18/19 17:07 06/18/19 17:07 06/18/19 17:07 06/18/19 17:07 - Notes Notes: GENERAL: Well-appearing, well-nourished and in no acute distress. HEAD: Atraumatic, normocephalic. EYES: Pupils equal round and reactive to light, extraocular movements intact, sclera anicteric, conjunctiva are normal. ENT: Nares patent, oropharynx clear without exudates. Moist mucous membranes. NECK: Normal range of motion, supple without lymphadenopathy or JVD. LUNGS: Breath sounds clear to auscultation bilaterally and equal. No wheezes rales or rhonchi. HEART: Regular rate and rhythm without murmurs, rubs or gallops. ABDOMEN: Soft, denies abdominal tenderness with palpation, slightly worse and more tender in the left lower quadrant and suprapubic region, normoactive bowel sounds. No guarding, no rebound. No masses appreciated. BACK: No cervical, thoracic, lumbar midline tenderness. No saddle anesthesia, normal distal neurovascular exam. No CVA tenderness. GENITOURINARY: Deferred. EXTREMITIES: Normal range of motion, no pitting or edema. No clubbing or cyanosis. NEUROLOGICAL: Cranial nerves II through XII grossly intact. Normal speech, normal gait. PSYCH: Normal mood, normal affect. SKIN: Warm, Dry, normal turgor, no rashes or lesions noted. Course - Re-evaluation Re-evalutation: 06/18/19 18:14 Blood work results are pending as well as the ultrasound. Will obtain pelvic specimens as the patient is having increasing vaginal discharge and urinary frequency. Urinalysis is unremarkable. The specimen was highly contaminated with epithelial cells but there was no leukocytes or nitrites. 06/18/19 18:51 Blood work and urinalysis unremarkable. Patient is not . Patient's ultrasound did not show or visualize the ovaries. Since the patient continues to have worsening left lower abdominal pain will obtain a CT with IV contrast. Patient was made aware of this and verbalizes understanding. Patient reports she does have a follow-up appointment at [facility] on June 24. Ports her last Pap smear was about 12 years ago. I did inform the patient when she follows up with [place] to have this performed to rule out cervical cancer. Patient reports that she has a history of irregular periods since the age of 10. Patient reports she has been on multiple types of control pills without any relief. Patient reports they were attempting to rule out endometriosis and she did have a laparoscopic abdominal surgery but that the doctor who was following her case lost her license and she did not follow-up. Patient reports this was years ago. Patient has not been to an [facility]. 06/18/19 19:50 Patient continues to complain of lower abdominal pain. When entering the room patient sitting upright and in no acute distress, patient resting comfortably on her side. Patient is nontoxic-appearing. My suspicion for ovarian torsion is low. Patient CT of the abdomen did show a lesion on the liver in which I did discuss with the patient and will have her follow-up with [facility]. Patient's not had any upper abdominal pain. Patient has had her gallbladder removed. We will treat the patient for bacterial vaginosis and symptomatic management. - Vital Signs Vital signs: Temp Pulse Resp BP Pulse Ox 99.1 F 103 H 16 134/89 H 98 06/18/19 17:07 06/18/19 17:07 06/18/19 17:07 06/18/19 17:07 06/18/19 17:07 - Laboratory Result Diagrams: 06/18/19 17:27 06/18/19 17:27 Laboratory results interpreted by me: 06/18/19 06/18/19 17:27 17:37 Plt Count 528 H Urine Protein 30 H 06/18/19 18:16 Patient's blood work does not show leukocytosis, anemia, alteration electrolytes or kidney function. Patient has normal liver enzymes, negative hCG negative urinalysis although this was highly contaminated with 57 epithelial cells. Laboratory 06/18/19 06/18/19 06/18/19 17:27 17:27 17:27 WBC 9.6 RBC 4.50 Hgb 13.6 Hct 39.7 MCV 88 MCH 30.3 MCHC 34.3 RDW 14.0 Plt Count 528 H Lymph % (Auto) 40.3 Woodruff % (Auto) 5.7 Eos % (Auto) 0.9 Baso % (Auto) 0.8 Absolute Neuts (auto) 5.0 Absolute Lymphs (auto) 3.9 Absolute Monos (auto) 0.5 Absolute Eos (auto) 0.1 Absolute Basos (auto) 0.1 Seg Neutrophils % 52.3 Sodium 141.5 Potassium 4.3 Chloride 105 Carbon Dioxide 28 Anion Gap 9 BUN 10 Creatinine 0.53 Est GFR ( Amer) > 60 Est GFR (MDRD) Non-Af > 60 Glucose 92 Calcium 9.9 Total Bilirubin 0.3 Direct Bilirubin 0.3 Neonat Total Bilirubin Not Reportable Neonat Direct Bilirubin Not Reportable Neonat Indirect Bili Not Reportable AST 18 ALT 13 Alkaline Phosphatase 101 Total Protein 7.6 Albumin 4.2 Lipase 77.3 Serum HCG, Qual NEGATIVE Urine Color Urine Appearance Urine pH Ur Specific Gates Urine Protein Urine Glucose (UA) Urine Ketones Urine Blood Urine Nitrite Urine Bilirubin Urine Urobilinogen Ur Leukocyte Esterase Urine WBC (Auto) Urine RBC (Auto) Urine Bacteria (Auto) Squamous Epi Cells Auto Amorphous Sediment Auto Urine Mucus (Auto) Urine Ascorbic Acid 06/18/19 17:37 WBC RBC Hgb Hct MCV MCH MCHC RDW Plt Count Lymph % (Auto) Woodruff % (Auto) Eos % (Auto) Baso % (Auto) Absolute Neuts (auto) Absolute Lymphs (auto) Absolute Monos (auto) Absolute Eos (auto) Absolute Basos (auto) Seg Neutrophils % Sodium Potassium Chloride Carbon Dioxide Anion Gap BUN Creatinine Est GFR ( Amer) Est GFR (MDRD) Non-Af Glucose Calcium Total Bilirubin Direct Bilirubin Neonat Total Bilirubin Neonat Direct Bilirubin Neonat Indirect Bili AST ALT Alkaline Phosphatase Total Protein Albumin Lipase Serum HCG, Qual Urine Color YELLOW Urine Appearance CLOUDY Urine pH 7.0 Ur Specific Gates 1.016 Urine Protein 30 H Urine Glucose (UA) NEGATIVE Urine Ketones NEGATIVE Urine Blood NEGATIVE Urine Nitrite NEGATIVE Urine Bilirubin NEGATIVE Urine Urobilinogen NEGATIVE Ur Leukocyte Esterase NEGATIVE Urine WBC (Auto) 2 Urine RBC (Auto) 3 Urine Bacteria (Auto) 2+ Squamous Epi Cells Auto 57 Amorphous Sediment Auto TRACE Urine Mucus (Auto) MANY Urine Ascorbic Acid NEGATIVE - Diagnostic Test Radiology reviewed: Reports reviewed Radiology results interpreted by me: 06/18/19 19:40 Transvaginal US 06/18/19 17:24 IMPRESSION: Nonvisualized ovaries. Otherwise, no acute findings. Abdomen/Pelvis CT 06/18/19 18:49 IMPRESSION: 1. Mild intrahepatic biliary ductal dilation status post remote cholecystectomy. 2. 1.8 x 1.3 cm indeterminate hypodense liver lesion. Nonemergent contrast en hanced MRI recommended for further characterisation. 3. Nonobstructing bilateral nephrolithiasis. Procedures - Pelvic Exam Pelvic exam Time completed: 18:35 Cultures obtained: Yes Wet prep obtained: Yes Witnessed by: Cristina BAILEY Notes: 06/18/19 18:51 External genitalia was unremarkable without erythema, edema or lesions. Patient tolerated the insertion of the speculum well. I was able to visualize the c ervix which was closed. Copious amounts of white thick discharge noted. No vaginal bleeding. Wet mount and gonorrhea/chlamydial cultures were obtained. Discharge - Discharge Clinical Impression: Bacterial vaginosis, Liver lesion, Left lower quadrant pain Condition: Stable Disposition: HOME, SELF-CARE Additional Instructions: *Today was seen in the emergency department for left lower quadrant pain. We did obtain an ultrasound and were unable to visualize her ovaries as there was obscuring bowel gas. We did obtain a CT of the abdomen and pelvis which did not show anything concerning in the left lower abdomen. It does look like you have a liver lesion. They do recommend a non-emergent MRI for further evaluation. When you follow-up with the [facility] on the please make them aware of this so they can order the appropriate testing. Please take 800 mg ibuprofen for your discomfort. *It was also found that you have bacterial vaginosis. I will treat you with Flagyl. You will take this twice daily for 1 week. *Make sure that when you go to the [facility] you do get a Pap smear as you does not have one in 12 years. Also let them know that in the past you have been worked up for possible endometriosis and that they never gave you a direct diagnosis. They may refer you to an [facility] for further evaluation. Ovarian Cyst Your examination shows the presence of an ovarian cyst. This is a ball of fluid attached to the ovary. Ovarian cysts in women of child-bearing age are us ually innocent. However, the cyst may cause pain when it grows or bursts. An innocent ovarian cyst will usually go away by itself. When the cyst becomes painful, you should rest. Pain medication may be required. Some women find a hot water bottle soothing. The pain usually resolves within one or two days. After menopause, an ovarian cyst may mean a tumor, and requires more aggressive evaluation -- usually surgery is recommended to remove or biopsy the cyst. A very large cyst requires evaluation at any age. Most cysts (even the innocent ones) require follow-up examination. Call the doctor or return at any time if the pain increases significantly, if you become faint, or if you experience vaginal bleeding. Prescriptions: Metronidazole [Flagyl 500 mg Tablet] 500 mg PO BID 7 Days #14 tablet Ibuprofen [Motrin 800 mg Tablet] 800 mg PO Q8H PRN #30 tab PRN Reason: Referrals: [facility] [Provider Group] - Follow up as needed [facility] [Provider Group] - Follow up as needed
--- NOTE | 2019-06-18 18:32 | RADIOLOGY REPORT (SQ) ---
EXAM DESCRIPTION: U/S NON OB PEL TV W/DOPPLER COMPLETED DATE/TIME: 06/18/2019 5:54 pm REASON FOR STUDY: LLQ pain COMPARISON: Pelvic ultrasound 06/06/2019. TECHNIQUE: Dynamic and static grayscale images acquired of the pelvis via transvaginal approach and recorded on PACS. LIMITATIONS: Overlying bowel gas. FINDINGS: UTERUS: The uterus measures 9.1 x 4.6 x 4.6 cm. No focal myometrial mass was seen. ENDOMETRIAL STRIPE: The endometrium measures 1.4 cm in double wall thickness. CERVIX: The cervix measures 2.9 cm in length. RIGHT OVARY AND DOPPLER: The right ovary was not visualized, obscured by overlying bowel gas. LEFT OVARY AND DOPPLER: The left ovary was not visualized, obscured by overlying bowel gas. FREE FLUID: None noted. IMPRESSION: Nonvisualized ovaries. Otherwise, no acute findings. TECHNICAL DOCUMENTATION: JOB ID: [id number] [id number] 2010 [employer]- All Rights Reserved Rev-09/25 Reading location - IP/workstation name: [email or web address]
[2019-06-18 18:57] LABS: BACTERIA (WET MOUNT) 3+ BACTERIA SEEN; EPITHELIALS (WET MOUNT) 3+ EPITHELIALS SEEN; T.VAGINALIS (WET MOUNT) NO TRICHOMONAS SEEN; WBCS (WET MOUNT) FEW WBCS SEEN; YEAST (WET MOUNT) NO YEAST SEEN
[2019-06-18 19:01] LABS: URINE AMPHETAMINES SCREEN NEGATIVE; URINE BARBITURATES SCREEN NEGATIVE; URINE BENZODIAZEPINES SCREEN NEGATIVE; URINE COCAINE SCREEN NEGATIVE; URINE MARIJUANA (THC) SCREEN NEGATIVE; URINE METHADONE SCREEN NEGATIVE; URINE PHENCYCLIDINE SCREEN NEGATIVE
--- NOTE | 2019-06-18 19:34 | RADIOLOGY REPORT (SQ) ---
EXAM DESCRIPTION: CT ABD/PELVIS WITH IV ONLY COMPLETED DATE/TIME: 06/18/2019 7:08 pm REASON FOR STUDY: left lower quad pain, hx. left ovarian cyst COMPARISON: CT abdomen and pelvis 02/16/2019, 11/09/2018. TECHNIQUE: CT scan of the abdomen and pelvis performed using helical scanning technique with dynamic intravenous contrast injection. No oral contrast. Images reviewed with lung, soft tissue, and bone windows. Reconstructed coronal and sagittal MPR images reviewed. Delayed images for evaluation of the urinary system also acquired. All images stored on PACS. All CT scanners at this facility use dose modulation, iterative reconstruction, and/or weight based d osing when appropriate to reduce radiation dose to as low as reasonably achievable (ALARA). [facility]: Dose Right [facility]: CareDose [facility]: Dose Right [facility]: Teradose 4D [facility]: Open Dada Solution Lab CONTRAST TYPE AND DOSE: contrast/concentration: Isovue 350.00 mg/ml; Total Contrast Delivered: 77.0 ml; Total Saline Delivered: 39.0 ml RENAL FUNCTION: Creatinine 0.53 RADIATION DOSE: CT Rad equipment meets quality standard of care and radiation dose reduction techniq ues were employed. CTDIvol: 5.0 - 6.5 mGy. DLP: 575 mGy-cm.. LIMITATIONS: None. FINDINGS: LOWER CHEST: Mild bibasilar atelectasis. No pleural effusion. LIVER: Normal size. There are is a 1.8 x 1.3 cm hypodense lesion at the medial aspect of the right h epatic lobe, segment 8/7, this becomes partially isodense with the liver parenchyma on the delayed im aging. There is mild intrahepatic biliary ductal dilation. The common bile duct does not appear dil ated. SPLEEN: Normal size. PANCREAS: No significant calcifications. No adjacent inflammation or peripancreatic fluid collections . Pancreatic duct not dilated. GALLBLADDER: Surgically absent. ADRENAL GLANDS: No significant masses or asymmetry. RIGHT KIDNEY AND URETER: No solid masses. Nonobstructing calcific foci at the right kidney measurin g up to 2 mm. No hydronephrosis or hydroureter. LEFT KIDNEY AND URETER: No solid masses. Nonobstructing calcific foci at the left kidney measuring up to 4 mm. No hydronephrosis or hydroureter. AORTA AND VESSELS: No abdominal aortic aneurysm or evidence for acute dissection RETROPERITONEUM: No retroperitoneal adenopathy, hemorrhage or masses. BOWEL AND PERITONEAL CAVITY: No dilated bowel loops or inflammatory changes. No free fluid or free ai r. APPENDIX: Normal. PELVIS: The uterus is present. No pelvic mass is identified. No free fluid. Partially distended u rinary bladder. ABDOMINAL WALL: No hernias. BONES: Orthopedic hardware transfixing the left hemipelvis and sacrum. No acute osseous findings are noted. IMPRESSION: 1. Mild intrahepatic biliary ductal dilation status post remote cholecystectomy. 2. 1.8 x 1.3 cm indeterminate hypodense liver lesion. Nonemergent contrast enhanced MRI recommended for further characterisation. 3. Nonobstructing bilateral nephrolithiasis. TECHNICAL DOCUMENTATION: JOB ID: [id number] Quality ID # [id number]: Final reports with documentation of one or more dose reduction techniques (e.g., Au tomated exposure control, adjustment of the mA and/or kV according to patient size, use of iterative reconstruction technique) 2010 [employer]- All Rights Reserved Reading location - IP/workstation name: [email or web address]
[2019-06-18] MEDS ORDERED: HYDROCODONE/ACETAMINOPHEN 5-325 MG (6 TAB/ER DISP) PO PRN (19:51)
[2019-06-18 20:10] VITALS: BP 149/95
[2019-06-18 20:26] LABS: CHLAM PCR NOT DETECTED (NOT DETECT)
== END 2019-06-18 20:22 | disposition home or self-care (01) ==
LOC: ER 16:51
DX: N76.0 Acute vaginitis (principal); B96.89 Other specified bacterial agents as the cause of diseases classified elsewhere; R10.2 Pelvic and perineal pain; R10.32 Left lower quadrant pain; R35.0 Frequency of micturition; F17.200 Nicotine dependence, unspecified, uncomplicated; I10 Essential (primary) hypertension
CPT/HCPCS: 36415; 87210; 83690; 84703; 85025; 80053; 81001; 80307; 87491; 87591; 76830; 93976; 74177; J1885; J2405

== ENCOUNTER 2019-07-02 13:16 | Emergency (ER) | payer SELFPAY ==
--- NOTE | 2019-07-02 13:43 | ER Document Report ---
ED Medical Screen (RME) - General Chief Complaint: Abdominal Pain Stated Complaint: ABDOMINAL PAIN Time Seen by Provider: 07/02/19 13:39 Mode of Arrival: Ambulatory Information source: Patient Notes: 34-year-old female patient presents the emergency department chief complaint of severe left lower quadrant abdominal pain. Patient reports recently diagnosed with a hemorrhagic cyst. Patient reports the pain is unbearable, states that she just started her menstrual cycle today. Reports nausea without vomiting or diarrhea. I have greeted and performed a rapid initial assessment of this patient. A comprehensive ED assessment and evaluation of the patient, analysis of test results and completion of the medical decision making process will be conducted by additional ED providers. I have specifically instructed the patient or family members with the patient to immediately return to any nursing staff should anything change in the patient's condition or with their chief complaint. TRAVEL OUTSIDE OF THE [place] IN LAST 30 DAYS: No - Related Data Allergies/Adverse Reactions: Sulfa (Sulfonamide Antibiotics) Allergy (Verified 06/06/19 22:14) Hives Past Medical History - Past Medical History Cardiac Medical History: Reports: Hx Hypertension Pulmonary Medical History: Reports: Hx Bronchitis Neurological Medical History: Reports: Hx Migraine Renal/ Medical History: Reports: Hx Kidney Stones, Hx Ovarian Cysts. Denies: Hx Peritoneal Dialysis Musculoskeltal Medical History: Reports Hx Musculoskeletal Deformity, Reports Hx Musculoskeletal Trauma Skin Medical History: Reports Hx Cellulitis Traumatic Medical History: Reports: Hx Fractures - Pelvis and L4, Hx Spine Fracture Past Surgical History: Reports: Hx Adenoidectomy, Hx Breast Surgery - Cysts, Hx Section, Hx Cholecystectomy, Hx Orthopedic Surgery - Rods and left hip, Hx Tonsillectomy, Hx Tubal Ligation, Hx Urinary Tract Surgery - stent - Immunizations Immunizations up to date: Yes Hx Diphtheria, Pertussis, Tetanus Vaccination: Yes - 2009 Physical Exam - Vital signs Vitals: Temp Pulse Resp BP Pulse Ox 98.3 F 115 H 18 143/102 H 100 07/02/19 13:34 07/02/19 13:34 07/02/19 13:34 07/02/19 13:34 07/02/19 13:34 Course - Vital Signs Vital signs: Temp Pulse Resp BP Pulse Ox 98.3 F 115 H 18 143/102 H 100 07/02/19 13:34 07/02/19 13:34 07/02/19 13:34 07/02/19 13:34 07/02/19 13:34
[2019-07-02] MEDS ORDERED: ONDANSETRON HCL INJ/PF 4 MG/2 ML SDV IV ONE (14:41)
[2019-07-02] MEDS ORDERED: KETOROLAC TROMETHAMINE INJ/PF 30 MG/1 ML SDV IV ONE (14:41)
--- NOTE | 2019-07-02 15:19 | RADIOLOGY REPORT (SQ) ---
EXAM DESCRIPTION: U/S NON OB PEL TV W/DOPPLER COMPLETED DATE/TIME: 07/02/2019 1:25 pm COMPARISON: CT abdomen and pelvis, 06/18/2019. Pelvic ultrasound, 06/18/2019. TECHNIQUE: Dynamic and static grayscale images acquired of the pelvis via transabdominal and transva ginal approach and recorded on PACS. Additional selected color Doppler and spectral images recorded. LIMITATIONS: None. FINDINGS: UTERUS: Normal uterine contour and appearance. No myometrial mass. The cervix is visuali zed and has normal contour and appearance. ENDOMETRIAL STRIPE: Endometrium measures 13 mm thickness. Small amount of free fluid within the endo metrial canal. CERVIX: No nabothian cysts. RIGHT OVARY AND DOPPLER: Normal size. No worrisome masses. No adnexal mass. Normal arterial vascula r flow without evidence for torsion. LEFT OVARY AND DOPPLER: Normal size. No worrisome masses. Interval resolution of the hemorrhagic ov bill follicle in the left ovary since the previous examination in May 2019 at which time it was seen. No left adnexal mass. Normal arterial vascular flow without evidence for torsion. FREE FLUID: None noted. OTHER: No other significant finding. MEASUREMENTS: UTERUS: 8.4 x 4.4 x 4.9 cm ENDOMETRIAL STRIPE: 13 mm RIGHT OVARY: 3.5 x 1.3 x 2.3 cm LEFT OVARY: 2.7 x 1.9 x 1.4 cm IMPRESSION: Interval resolution of the hemorrhagic left ovarian follicle since May 2019. Normal sonographic appearance of the uterus and ovaries. TECHNICAL DOCUMENTATION: JOB ID: [id number] 2011 [employer]- All Rights Reserved Rev-09/25 REASON FOR STUDY: LLQ pain hx of recent cyst LLQ pain hx of recent cyst. Reading location - IP/workstation name: [email or web address]
--- NOTE | 2019-07-02 15:22 | ER Document Report ---
ED GI/ - General Chief Complaint: Abdominal Pain Stated Complaint: ABDOMINAL PAIN Time Seen by Provider: 07/02/19 13:39 Primary Care Provider: JOYA MONTIEL MD [NO LOCAL MD] - Follow up in 1 week (for urology follow up) FRANKLIN BARNES MD [ACTIVE STAFF] - Follow up as needed (for hematology follow up) DEE GRAY MD [Primary Care Provider] - Follow up in 3-5 days Mode of Arrival: Ambulatory TRAVEL OUTSIDE OF THE [place] IN LAST 30 DAYS: No - HPI Notes: 34-year-old female to the emergency department with complaints of left lower quadrant abdominal pain, nausea, vaginal bleeding that began this morning. She states that her abdominal pain actually began before the vaginal bleeding. She states that she had the pain and then couple episodes of diarrhea and then she began to have vaginal bleeding. She states that she has a history of a left ov bill cyst and thinks that this may be causing her pain. She denies any fevers or chills. She states that she has had some diarrhea over the past couple of days as well. She states that she has a history of kidney stones but denies any flank pain. She also states that she has never had diverticulitis. - Related Data Allergies/Adverse Reactions: Sulfa (Sulfonamide Antibiotics) Allergy (Verified 06/06/19 22:14) Hives Past Medical History - General Information source: Patient - Social History Smoking Status: Current Every Day Smoker Family History: Arthritis, CVA, DM, Hyperlipidemia, Hypertension, Malignancy, Thyroid Disfunction. denies: CAD, COPD Patient has suicidal ideation: No Patient has homicidal ideation: No - Past Medical History Cardiac Medical History: Reports: Hx Hypertension Pulmonary Medical History: Reports: Hx Bronchitis Neurological Medical History: Reports: Hx Migraine Renal/ Medical History: Reports: Hx Kidney Stones, Hx Ovarian Cysts. Denies: Hx Peritoneal Dialysis Musculoskeletal Medical History: Reports Hx Musculoskeletal Deformity, Reports Hx Musculoskeletal Trauma Skin Medical History: Reports Hx Cellulitis Traumatic Medical History: Reports: Hx Fractures - Pelvis and L4, Hx Spine Fracture Past Surgical History: Reports: Hx Adenoidectomy, Hx Breast Surgery - Cysts, Hx Section, Hx Cholecystectomy, Hx Orthopedic Surgery - Rods and left hip, Hx Tonsillectomy, Hx Tubal Ligation, Hx Urinary Tract Surgery - stent - Immunizations Immunizations up to date: Yes Hx Diphtheria, Pertussis, Tetanus Vaccination: Yes - 2009 Physical Exam - Vital signs Vitals: Temp Pulse Resp BP Pulse Ox 98.3 F 117 H 18 143/102 H 100 07/02/19 13:32 07/02/19 13:32 07/02/19 13:32 07/02/19 13:32 07/02/19 13:32 Interpretation: Tachycardic - General General appearance: Alert In distress: Mild Notes: mild pain discomfort - HEENT Head: Normocephalic, Atraumatic Eyes: Normal Pupils: PERRL - Respiratory Respiratory status: No respiratory distress Chest status: Nontender Breath sounds: Normal Chest palpation: Normal - Cardiovascular Rhythm: Regular Heart sounds: Normal auscultation Murmur: No - Abdominal Inspection: Normal Distension: No distension Bowel sounds: Normal Tenderness: Tender - + TTP over the left lower quadrant with mild guarding. no TTP over the RLQ, negative CVAT, negative McBurney's and Pressley's sign Organomegaly: No organomegaly - Back Back: Normal, Nontender - Neurological Neuro grossly intact: Yes Cognition: Normal Orientation: AAOx4 [place] Coma Scale Eye Opening: Spontaneous Gavi Coma Scale Verbal: Oriented Gavi Coma Scale Motor: Obeys Commands [place] Coma Scale Total: 15 Speech: Normal Cranial nerves: Normal Cerebellar coordination: Normal Motor strength normal: LUE, RUE, LLE, RLE Additional motor exam normals: Equal dress fitter Sensory: Normal - Psychological Associated symptoms: Normal affect, Normal mood - Skin Skin Temperature: Warm Skin Moisture: Dry Skin Color: Normal Course - Re-evaluation Re-evalutation: Tolerated p.o. and pain has improved. Also in review of prior visits, patient did have an ovarian cyst on her last visit which appears to have resolved on the US today. She also appears to have a history of chronic leukocytosis. The highest it has been in the past is 21. Today's leukocytosis is not exceptionally different from prior. CT scan was done after US failed to reveal any acute abnormality and CT also is reassuring. Nephrolithiasis but no ureteral calculus or hydronephrosis or hydroureter. Will on discharge home. WIll give follow up for hematology for chronic leukocytosis. Urged to return if worse. PCP follow up. - Vital Signs Vital signs: Temp Pulse Resp BP Pulse Ox 97.8 F 97 16 140/85 H 100 07/02/19 19:55 07/02/19 19:55 07/02/19 19:55 07/02/19 19:55 07/02/19 19:55 - Laboratory Result Diagrams: 07/02/19 15:05 07/02/19 15:05 Laboratory results interpreted by me: 07/02/19 07/02/19 07/02/19 14:54 15:05 15:05 WBC 17.7 H Plt Count 549 H Absolute Neuts (auto) 13.7 H Creatinine 0.45 L Urine Protein 100 H Urine Glucose (UA) 50 H Urine Ketones TRACE H Urine Blood LARGE H Ur Leukocyte Esterase TRACE H - Diagnostic Test Radiology reviewed: Image reviewed, Reports reviewed Discharge - Discharge Clinical Impression: LLQ abdominal pain, Nephrolithiasis, Vaginal bleeding Leukocytosis Qualifiers: Leukocytosis type: unspecified Qualified Code(s): D72.829 - Elevated white blood cell count, unspecified Condition: Stable Disposition: HOME, SELF-CARE Instructions: Abdominal Pain ([facility]) Additional Instructions: Follow-up outpatient with primary care, urology, hematology. Follow with hematology for recurrent elevated white blood cell count. Take medicine as prescribed. Return if any worsening symptoms. Push fluids. Prescriptions: Ondansetron [Zofran Odt 4 mg Tablet] 1 - 2 tab PO Q4HP PRN #10 tab.rapdis PRN Reason: Hydrocodone/Acetaminophen [[place] 5-325 mg Tablet] 1 tab PO Q6H #6 tablet Referrals: DEE GRAY MD [Primary Care Provider] - Follow up in 3-5 days JOYA MONTIEL MD [NO LOCAL MD] - Follow up in 1 week (for urology follow up) FRANKLIN BARNES MD [ACTIVE STAFF] - Follow up as needed (for hematology follow up)
[2019-07-02 15:25] LABS: ABSOLUTE BASOPHILS # (AUTO) 0.1 10^3/uL (0.0-0.2); ABSOLUTE MONOCYTES (AUTO) 0.9 10^3/uL (0.1-1.4); ABSOLUTE NEUT (AUTO) 13.7 10^3/uL (1.7-8.2); BASOPHILS % (AUTO) 0.4 % (0-2); EOSINOPHILS % (AUTO) 0.2 % (0-6); HEMATOCRIT 40.6 % (36.0-47.0); HEMOGLOBIN 14.2 g/dL (12.0-15.5); LYMPHOCYTES % (AUTO) 16.7 % (13-45); MEAN CORPUSCULAR HEMOGLOBIN 30.7 pg (27.0-33.4); MEAN CORPUSCULAR VOLUME 88 fl (80-97); MONOCYTES % (AUTO) 4.9 % (3-13); PLATELET COUNT 549 10^3/uL (150-450); RED BLOOD COUNT 4.63 10^6/uL (3.72-5.28); RED CELL DISTRIBUTION WIDTH 13.8 % (11.5-14.0); SEGMENTED NEUTROPHILS % (AUTO) 77.8 % (42-78); TOTAL CELLS COUNTED % (AUTO) 100 %; WHITE BLOOD COUNT 17.7 10^3/uL (4.0-10.5)
[2019-07-02 15:38] LABS: ALBUMIN 4.5 g/dL (3.5-5.0); ALKALINE PHOSPHATASE 113 U/L (38-126); ANION GAP 12 (5-19); ASPARTATE AMINO TRANSFERASE 31 U/L (14-36); BILIRUBIN,DIRECT 0.4 mg/dL (0.0-0.4); BILIRUBIN,TOTAL 0.4 mg/dL (0.2-1.3); BLOOD UREA NITROGEN 13 mg/dL (7-20); CALCIUM 9.5 mg/dL (8.4-10.2); CARBON DIOXIDE 22 mmol/L (22-30); CHLORIDE 107 mmol/L (98-107); GLUCOSE 98 mg/dL (75-110); POTASSIUM 4.6 mmol/L (3.6-5.0); TOTAL PROTEIN 8.2 g/dL (6.3-8.2)
[2019-07-02] MEDS ORDERED: MORPHINE SULFATE 10 MG/ML INJ IV ONE ×2 (15:45→17:14)
[2019-07-02 15:59] LABS: APPEARANCE,URINE CLOUDY; BILIRUBIN,URINE NEGATIVE (NEGATIVE); COLOR,URINE RED; GLUCOSE, URINE 50 mg/dL (NEGATIVE); KETONES,URINE TRACE mg/dL (NEGATIVE); LEUKOCYTE ESTERASE,URINE TRACE (NEGATIVE); NITRITE,URINE NEGATIVE (NEGATIVE); PROTEIN,URINE 100 mg/dL (NEGATIVE); URINE SPECIFIC GRAVITY 1.028; UROBILINOGEN,URINE NEGATIVE mg/dL (<2.0)
[2019-07-02] MEDS: NORMAL SALINE 1000 ML 1,000 ML IV PRN ×2 (16:22→17:42)
--- NOTE | 2019-07-02 19:04 | RADIOLOGY REPORT (SQ) ---
EXAM DESCRIPTION: CT ABD/PELVIS WITH IV ONLY COMPLETED DATE/TIME: 07/02/2019 6:33 pm REASON FOR STUDY: LLQ abd pain, diarrhea COMPARISON: CT abdomen pelvis 06/18/2019 TECHNIQUE: CT scan of the abdomen and pelvis performed using helical scanning technique with dynamic intravenous contrast injection. No oral contrast. Images reviewed with lung, soft tissue, and bone windows. Reconstructed coronal and sagittal MPR images reviewed. Delayed images for evaluation of the urinary system also acquired. All images stored on PACS. All CT scanners at this facility use dose modulation, iterative reconstruction, and/or weight based d osing when appropriate to reduce radiation dose to as low as reasonably achievable (ALARA). [facility]: Dose Right [facility]: CareDose [facility]: Dose Right [facility]: Teradose 4D [facility]: Hyperfair CONTRAST TYPE AND DOSE: Contrast does report not provided. RENAL FUNCTION: None required. The patient is less than 50 years old. RADIATION DOSE: CT Rad equipment meets quality standard of care and radiation dose reduction techniq ues were employed. CTDIvol: 5.2 - 6.8 mGy. DLP: 686 mGy-cm.. LIMITATIONS: None. FINDINGS: LOWER CHEST: No acute findings. LIVER: Normal size. Unchanged size of a 1.8 cm hypodense lesion within hepatic segment VII. Increas ed moderate intrahepatic biliary ductal dilatation. Mild intrahepatic delayed ductal dilatation with the common bile duct measuring 8 mm in caliber. SPLEEN: Normal size. No focal lesions. PANCREAS: No masses. No significant calcifications. No adjacent inflammation or peripancreatic fluid collections. Pancreatic duct not dilated. GALLBLADDER: Surgically absent. ADRENAL GLANDS: No significant masses or asymmetry. RIGHT KIDNEY AND URETER: No solid masses. Scattered nonobstructing nephroliths, the largest of whic h measures 5 mm at the inferior pole. No hydronephrosis or hydroureter. LEFT KIDNEY AND URETER: No solid masses. Scattered nonobstructing nephroliths, the largest of which measures 4 mm at the interpolar region. No hydronephrosis or hydroureter. AORTA AND VESSELS: Atherosclerotic changes of the infrarenal abdominal aorta. No aneurysm. No dissec tion. Renal arteries, SMA, celiac without stenosis. RETROPERITONEUM: No retroperitoneal adenopathy, hemorrhage or masses. BOWEL AND PERITONEAL CAVITY: Moderate colonic diverticular disease at the splenic flexure. No masses or inflammatory changes. No free fluid or peritoneal masses. APPENDIX: Normal. PELVIS: No mass. No free fluid. Normal bladder. ABDOMINAL WALL: No masses. No hernias. BONES: Left sacroiliac surgical hardware. No acute findings. OTHER: No other significant finding. IMPRESSION: Moderate colonic diverticulosis at the splenic flexure without evidence of acute diverti culitis. Bilateral nonobstructing nephrolithiasis. Postsurgical changes of cholecystectomy with increased moderate intra and mild extrahepatic biliary d uctal dilatation. Unchanged size of 1.8 cm right hepatic hypodense lesion. Again recommend MRI on the routine basis fo r further evaluation. TECHNICAL DOCUMENTATION: JOB ID: [id number] Quality ID # [id number]: Final reports with documentation of one or more dose reduction techniques (e.g., Au tomated exposure control, adjustment of the mA and/or kV according to patient size, use of iterative reconstruction technique) 2010 [employer]- All Rights Reserved Reading location - IP/workstation name: [email or web address]
[2019-07-02 19:57] VITALS: BP 140/85
== END 2019-07-02 19:55 | disposition home or self-care (01) ==
LOC: ER 13:16
DX: N20.0 Calculus of kidney (principal); D72.829 Elevated white blood cell count, unspecified; R10.32 Left lower quadrant pain; R10.814 Left lower quadrant abdominal tenderness; R11.0 Nausea; N93.9 Abnormal uterine and vaginal bleeding, unspecified; R19.7 Diarrhea, unspecified; F17.200 Nicotine dependence, unspecified, uncomplicated; I10 Essential (primary) hypertension; Z87.42 Personal history of other diseases of the female genital tract; Z88.2 Allergy status to sulfonamides
CPT/HCPCS: 96376; 99284; 96361; 96374; 96375; 36415; 87040; 83605; 83690; 85025; 80053; 81001; 76830; 93976; 74177; J1885; J2270; J2405; J7030

== ENCOUNTER 2019-07-11 20:15 | Emergency (ER) | payer SELFPAY ==
[2019-07-11] MEDS ORDERED: ACETAMINOPHEN 325 MG TABLET PO ONE (23:00)
--- NOTE | 2019-07-11 23:06 | ER Document Report ---
HPI - HPI Patient complains to provider of: Right foot pain Time Seen by Provider: 07/11/19 22:35 Onset: Other - thursday Quality of pain: Achy, Throbbing Severity: Severe Pain Level: 4 Context: 34-year-old female presents emergency department with complaints of right foot pain. She reports she was avoiding a cat and she stepped over the cat and hit her foot on the gravel truck driver. She reports pain since that time. Denies past medical history of injury to foot. No other complaints such as fever vomiting diarrhea. Associated Symptoms: None Exacerbated by: Walking Relieved by: Denies Similar symptoms previously: No Recently seen / treated by doctor: No - CONSTITUTIONAL Constitutional: DENIES: Fever, Chills - REPRODUCTIVE LMP: Tubal ligaton Reproductive: DENIES: : - MUSCULOSKELETAL Musculoskeletal: REPORTS: Extremity pain - Right Foot Past Medical History - General Information source: Patient - Social History Smoking Status: Current Every Day Smoker Cigarette use (# per day): Yes Frequency of alcohol use: None Drug Abuse: None Occupation: Babysit Lives with: Family Family History: Arthritis, CVA, DM, Hyperlipidemia, Hypertension, Malignancy, Thyroid Disfunction. denies: CAD, COPD Patient has suicidal ideation: No Patient has homicidal ideation: No - Past Medical History Cardiac Medical History: Reports: Hx Hypertension Pulmonary Medical History: Reports: Hx Bronchitis Neurological Medical History: Reports: Hx Migraine Renal/ Medical History: Reports: Hx Kidney Stones, Hx Ovarian Cysts. Denies: Hx Peritoneal Dialysis Musculoskeletal Medical History: Reports Hx Musculoskeletal Deformity, Reports Hx Musculoskeletal Trauma Skin Medical History: Reports Hx Cellulitis Traumatic Medical History: Reports: Hx Fractures - Pelvis and L4, Hx Spine Fracture Past Surgical History: Reports: Hx Adenoidectomy, Hx Breast Surgery - Cysts, Hx Section, Hx Cholecystectomy - Gallbladder removal, Hx Orthopedic Surgery - Rods and left hip, Hx Tonsillectomy, Hx Tubal Ligation, Hx Urinary Tract Surgery - stent - Immunizations Immunizations up to date: Yes Hx Diphtheria, Pertussis, Tetanus Vaccination: Yes - 2009 Vertical Provider Document - CONSTITUTIONAL Agree With Documented VS: Yes Exam Limitations: No Limitations General Appearance: WD/WN, No Apparent Distress - nontoxic looking - INFECTION CONTROL TRAVEL OUTSIDE OF THE [place] IN LAST 30 DAYS: No - HEENT HEENT: Atraumatic, Normocephalic - NECK Neck: Supple - RESPIRATORY Respiratory: No Respiratory Distress - MUSCULOSKELETAL/EXTREMETIES Musculoskeletal/Extremeties: MAEW, FROM, Tender - +ecchymosis to distal dorsal 2-4 metatarsals right foot, pedal pulse+3, cap refill less than 2 seconds no obvious deformity - NEURO Level of Consciousness: Awake, Alert, Appropriate Motor/Sensory: No Motor Deficit - DERM Integumentary: Warm, Dry Course - Re-evaluation Re-evalutation: 07/11/19 23:33 34-year-old female presents with complaints right foot pain. Reports she was walking Thursday when her cat stepped in front of her she jumped over hit the dryer trying to avoid the cat. She has some ecchymosis to the dorsal side of her foot. No obvious deformity pedal pulse strong cap refill less than 2 seconds. X-ray negative for fracture. Straight notes partial nail avulsion but patient has a fake nail on that great toe. No nail avulsion. Patient was instructed on postop shoe for comfort. She requested something stronger than Tylenol for pain. Percocet ordered patient does have a ride home. Foot X-Ray 07/11/19 21:51 IMPRESSION: No discrete acute fracture or dislocation. Suspect partial nail avulsion of the great toe. - Vital Signs Vital signs: Temp Pulse Resp BP Pulse Ox 98.2 F 115 H 20 132/94 H 99 07/11/19 20:30 07/11/19 20:30 07/11/19 20:30 07/11/19 20:30 07/11/19 20:30 - Diagnostic Test Radiology reviewed: Image reviewed, Reports reviewed Procedures - Immobilization Right Foot Pre-Proc Neuro Vasc Exam: Normal Immobilizer type: Post-op shoe Performed by: PCT Post-Proc Neuro Vasc Exam: Unchanged from pre-exam Discharge - Discharge Clinical Impression: Right foot pain Condition: Stable Disposition: HOME, SELF-CARE Instructions: Contusion ([facility]), Use of Kbie-Pvy-Hwxowez Ibuprofen ([facility]), Ice & Elevation ([facility]), Post-Op Shoe ([facility]) Additional Instructions: *You have been evaluated for right foot pain, contusion *Your xray was negative for an acute fracture *Maintain the post op shoe for comfort *Rest/Ice/Elevate your foot *Follow up with orthopedics within one week for continued pain *Return to ED for worsening condition, changes, needs Monitor your blood pressure. Your blood pressure was elevated today. This may be because you were anxious, in pain or because you need medication. It is important to follow up with your primary care provider for full evaluation. Forms: Elevated Blood Pressure Referrals: DEE GRAY MD [Primary Care Provider] - Follow up in 3-5 days
--- NOTE | 2019-07-11 23:18 | RADIOLOGY REPORT (SQ) ---
EXAM DESCRIPTION: X-RAY FOOT 3 OR MORE VIEWS CLINICAL HISTORY: pain COMPARISON: None. FINDINGS: AP, lateral and oblique views of the right foot were obtained at 2219 hours on 07/11/2019. There is no discrete acute fracture or dislocation. Bone mineralization is within normal limits. There is no radiopaque foreign body material. There is air around the nailbed of the great toe perhaps related to a partial nail avulsion. IMPRESSION: No discrete acute fracture or dislocation. Suspect partial nail avulsion of the great toe.
[2019-07-11] MEDS ORDERED: OXYCODONE-ACETAMINOPHEN 5-325 MG TABLET PO ONE (23:33)
[2019-07-11 23:46] VITALS: BP 123/87
== END 2019-07-11 23:47 | disposition home or self-care (01) ==
LOC: ER 20:15
DX: M79.671 Pain in right foot (principal); W22.09XA Striking against other stationary object, initial encounter; F17.210 Nicotine dependence, cigarettes, uncomplicated; I10 Essential (primary) hypertension; Z87.442 Personal history of urinary calculi; Z90.49 Acquired absence of other specified parts of digestive tract; Z98.51 Tubal ligation status
CPT/HCPCS: 99283

== ENCOUNTER 2019-07-19 19:58 | Emergency (ER) | payer SELFPAY ==
[2019-07-19 20:32] LABS: APPEARANCE,URINE SLIGHTLY-CLOUDY; BILIRUBIN,URINE NEGATIVE (NEGATIVE); COLOR,URINE YELLOW; GLUCOSE, URINE NEGATIVE (NEGATIVE); KETONES,URINE NEGATIVE (NEGATIVE); LEUKOCYTE ESTERASE,URINE TRACE (NEGATIVE); NITRITE,URINE NEGATIVE (NEGATIVE); PROTEIN,URINE NEGATIVE (NEGATIVE); UROBILINOGEN,URINE NEGATIVE mg/dL (<2.0)
[2019-07-19 20:34] LABS: ADD MANUAL MICROSCOPIC YES; WBC,URINE RARE /HPF
[2019-07-19 20:53] LABS: HEMATOCRIT 36.7 % (36.0-47.0); HEMOGLOBIN 13.4 g/dL (12.0-15.5); MEAN CORPUSCULAR HEMOGLOBIN 31.4 pg (27.0-33.4); MEAN CORPUSCULAR HGB CONC 36.5 g/dL (32.0-36.0); MEAN CORPUSCULAR VOLUME 86 fl (80-97); PLATELET COUNT 451 10^3/uL (150-450); RED BLOOD COUNT 4.26 10^6/uL (3.72-5.28); RED CELL DISTRIBUTION WIDTH 14.2 % (11.5-14.0); WHITE BLOOD COUNT 9.5 10^3/uL (4.0-10.5)
[2019-07-19 21:10] LABS: ABSOLUTE LYMPHOCYTES# (MANUAL) 4.7 10^3/uL (0.5-4.7); ABSOLUTE MONOCYTES # (MANUAL) 0.8 10^3/uL (0.1-1.4); BASOPHILS % (MANUAL) 0 % (0-2); EOSINOPHILS % (MANUAL) 1 % (0-6); LYMPHOCYTES % (MANUAL) 48 % (13-45); MONOCYTES % (MANUAL) 8 % (3-13); SEGMENTED NEUTROPHILS % (MAN) 42 % (42-78); TOTAL CELLS COUNTED 100
[2019-07-19 21:11] LABS: ANISOCYTOSIS SLIGHT; PLATELET COMMENT ADEQUATE
[2019-07-19] MEDS ORDERED: ONDANSETRON HCL INJ/PF 4 MG/2 ML SDV IV ONE (21:13)
[2019-07-19] MEDS ORDERED: NORMAL SALINE 1000 ML 1,000 ML IV ONE (21:13)
[2019-07-19] MEDS ORDERED: KETOROLAC TROMETHAMINE INJ/PF 30 MG/1 ML SDV IV ONE (21:13)
--- NOTE | 2019-07-19 21:17 | ER Document Report ---
ED GI/ - General Chief Complaint: Flank Pain Stated Complaint: POSSIBLE KIDNEY STONE Time Seen by Provider: 07/19/19 21:11 Primary Care Provider: DEE GRAY MD [Primary Care Provider] - Follow up as needed Notes: 34-year-old woman presents to the emergency department with a complaint of bilateral flank pain states that she had kidney stones and is having severe pain are associated with stone. She denies nausea, vomiting or anuria. TRAVEL OUTSIDE OF THE [place] IN LAST 30 DAYS: No - Related Data Allergies/Adverse Reactions: Sulfa (Sulfonamide Antibiotics) Allergy (Verified 07/11/19 22:07) Hives Past Medical History - Social History Smoking Status: Current Some Day Smoker Family History: Arthritis, CVA, DM, Hyperlipidemia, Hypertension, Malignancy, Thyroid Disfunction. denies: CAD, COPD Patient has suicidal ideation: No Patient has homicidal ideation: No - Past Medical History Cardiac Medical History: Reports: Hx Hypertension Pulmonary Medical History: Reports: Hx Bronchitis Neurological Medical History: Reports: Hx Migraine Renal/ Medical History: Reports: Hx Kidney Stones, Hx Ovarian Cysts. Denies: Hx Peritoneal Dialysis Musculoskeletal Medical History: Reports Hx Musculoskeletal Deformity, Reports Hx Musculoskeletal Trauma Skin Medical History: Reports Hx Cellulitis Traumatic Medical History: Reports: Hx Fractures - Pelvis and L4, Hx Spine Fracture Past Surgical History: Reports: Hx Adenoidectomy, Hx Breast Surgery - Cysts, Hx Section, Hx Cholecystectomy - Gallbladder removal, Hx Orthopedic Surgery - Rods and left hip, Hx Tonsillectomy, Hx Tubal Ligation, Hx Urinary Tract Surgery - stent - Immunizations Immunizations up to date: Yes Hx Diphtheria, Pertussis, Tetanus Vaccination: Yes - 2009 Review of Systems - Review of Systems Notes: Constitutional: Negative for fever. HENT: Negative for sore throat. Eyes: Negative for visual changes. Cardiovascular: Negative for chest pain. Respiratory: Negative for shortness of breath. Gastrointestinal: Negative for abdominal pain, vomiting or diarrhea. Genitourinary: Bilateral flank pain. Musculoskeletal: Negative for back pain. Skin: Negative for rash. Neurological: Negative for headaches, weakness or numbness. 10 point ROS negative except as marked above and in HPI. Physical Exam - Vital signs Vitals: Temp Pulse Resp BP Pulse Ox 99.0 F 114 H 16 134/94 H 98 07/19/19 20:04 07/19/19 20:04 07/19/19 20:04 07/19/19 20:04 07/19/19 20:04 - Notes Notes: PHYSICAL EXAMINATION: Physical Exam: General: Well-nourished well-developed 4-year-old woman in moderate distress secondary to right greater than left flank pain. HEENT: NC/AT, pupils equal round and reactive to light, MM moist,nares clear, oropharynx clear, airway patent Neck: supple, no adenopathy, no masses. Good range of motion Lungs: clear, no wheezing, no rales no rhonchi CVS: Regular rate and rhythm no murmur gallop or rub Abdomen: Soft, active, nontender, no masses, no hepatosplenomegaly Ext: No edema, clubbing or cyanosis. Back: + CVA tenderness. Neuro: Alert and responsive, moving all 4 extremities on command, cranial nerves intact, no focal findings Skin: Intact no open lesions, no rash PSYCH: Normal mood, normal affect. Course - Re-evaluation Re-evalutation: 07/20/19 01:10 Patient was given Toradol and then a dose of narcotic pain medications, she states that it has not helped her pain at all so a repeat CT scan was performed. CT scan reveals no bilateral nonobstructing nephrolithiasis. Explained to the patient she does not have obstructing stones or hydronephrosis or hydroureter. Her urine is clear without signs of infection and that her pain may be musculoskeletal I have offered her a prescription for Naprosyn and baclofen for the discomfort. She is instructed to follow-up with her primary care doctor as needed. - Vital Signs Vital signs: Temp Pulse Resp BP Pulse Ox 99.0 F 114 H 16 134/94 H 98 07/19/19 20:04 07/19/19 20:04 07/19/19 20:04 07/19/19 20:04 07/19/19 20:04 - Laboratory Result Diagrams: 07/19/19 20:38 07/19/19 20:38 Laboratory results interpreted by me: 07/19/19 07/19/19 07/19/19 20:05 20:38 20:38 MCHC 36.5 H RDW 14.2 H Plt Count 451 H Lymphocytes % (Manual) 48 H Creatinine 0.41 L ALT 59 H Alkaline Phosphatase 250 H Ur Leukocyte Esterase TRACE H Discharge - Discharge Clinical Impression: Bilateral back pain Qualifiers: Back pain location: low back pain Chronicity: unspecified Sciatica presence: without sciatica Qualified Code(s): M54.5 - Low back pain Condition: Good Disposition: HOME, SELF-CARE Instructions: Chronic Back Pain ([facility]) Additional Instructions: You are diagnosed with back pain in the emergency department tonight is is not caused by kidney stones or urinary tract infections. You were given an anti- inflammatory pain medication and a muscle relaxant to use. You may also try using a cold compress to the area of pain. Please follow-up with your doctor as needed. If your symptoms are worsening or if you have new concerns you may return to the emergency department for further evaluation and treatment HOME CARE INSTRUCTIONS & INFORMATION: Thank you for choosing us for your medical needs. We hope you're satisfied with the care you received. After you leave, you must properly care for your problem and, at the same time, observe its progress. Any condition can change. Some illnesses can change rapidly over hours or days. If your condition worsens, return to the Emergency Department or see your physician promptly. ABOUT YOUR X-RAYS AND EKG'S: If you had an EKG or X-rays taken, they have been read by the Emergency Physician. The X-rays and EKG's will also be read by a Radiologist or Social Service Worker within 24 hours. If discrepancies are noted, you will be notified by telephone. Please be certain the ED has a correct telephone number & address where you can be reached. Also, realize that some fractures or abnormalities do not show up on initial X-rays. If your symptoms continue, see your physician. ABOUT YOUR LABORATORY TEST: If you had laboratory tests, the results have been reviewed by the Emergency Physician. Some test results (for example cultures) may not be available for several days. You will be contacted if any test result shows you need additional treatment. Please be certain the ED has a correct telephone number and address where you can be reached. ABOUT YOUR MEDICATIONS: You will receive instructions on how to take your medicine on the prescription label you receive. Additional information may be provided by the Pharmacy. If you have questions afterwards, call the ED for clarification or further instructions. Some prescribed medications may cause drowsiness. Do not perform tasks such as driving a car or operating machinery without consulting your Pharmacist. If you feel you need a refill of pain medication, your condition will need re-evaluation. Please do not call for a refill of any medication. ABOUT YOUR SIGNATURE: Signature of this document acknowledges to followin. Understanding that you received emergency treatment and that you may be released before al medical problems are known or treated. Please be certain the ED has a correct phone number & address where you can be reached. 2. Acknowledgement that you will arrange for follow-up care as recommended. 3. Authorization for the Emergency Physician to provide information to your follow-up Physician in order to maximize your care. AT ANY TIME, IF YOUR SYMPTOMS CHANGE SIGNIFICANTLY OR WORSEN OR YOU DEVELOP NEW SYMPTOMS, RETURN TO THE EMERGENCY DEPARTMENT IMMEDIATELY FOR RE-EVALUATION. OUR GOAL IS TO PROVIDE EXCELLENT MEDICAL CARE! WE HOPE THAT WE HAVE MET YOUR EXPECTATIONS DURING YOUR EMERGENCY DEPARTMENT VISIT AND THAT YOU FEEL YOU HAVE RECEIVED EXCELLENT CARE! Prescriptions: Baclofen [Baclofen 10 mg Tablet] 10 mg PO TID #30 tab Naproxen [Naprosyn] 500 mg PO BID #20 tablet Referrals: DEE GRAY MD [Primary Care Provider] - Follow up as needed
[2019-07-19 21:21] LABS: ALBUMIN 4.4 g/dL (3.5-5.0); ALKALINE PHOSPHATASE 250 U/L (38-126); ANION GAP 9 (5-19); ASPARTATE AMINO TRANSFERASE 32 U/L (14-36); BILIRUBIN,DIRECT 0.1 mg/dL (0.0-0.4); BILIRUBIN,TOTAL 0.3 mg/dL (0.2-1.3); BLOOD UREA NITROGEN 8 mg/dL (7-20); CALCIUM 9.7 mg/dL (8.4-10.2); CARBON DIOXIDE 24 mmol/L (22-30); CHLORIDE 106 mmol/L (98-107); GLUCOSE 88 mg/dL (75-110); POTASSIUM 3.9 mmol/L (3.6-5.0)
[2019-07-19] MEDS ORDERED: LORAZEPAM INJ 2 MG/1 ML VIAL IV ONE (22:33)
[2019-07-19] MEDS ORDERED: HYDROMORPHONE HCL INJ/PF 2 MG/ML AMPULE IV ONE (22:34)
--- NOTE | 2019-07-20 00:46 | RADIOLOGY REPORT (SQ) ---
EXAM DESCRIPTION: CT ABDOMEN PELVIS WITHOUT IV CONTRAST COMPLETED DATE/TME: 07/19/2019 23:55 CLINICAL HISTORY: 34 years, Female, bilateral flank pain. HCG NEG COMPARISON: 07/02/2019 TECHNIQUE: Axial CT images of the abdomen and pelvis were obtained without contrast. Sagittal and coronal reformats were performed. DLP 304 Images stored on PACS. All CT scanners at this facility use dose modulation, iterative reconstruction, and/or weight based dosing when appropriate to reduce radiation dose to as low as reasonably achievable (ALARA). [facility]: Dose Right [facility]: CareDose [facility]: Dose Right [facility]: Teradose 4D [facility]: [employer] LIMITATIONS: None. FINDINGS: The lung bases are clear. A 1.9 cm hepatic cyst is again noted. Cholecystectomy. The pancreas, spleen, and adrenal glands are unremarkable. There are bilateral nonobstructing stones which measure up to 4 mm in size. There is no intraperitoneal free air or fluid. There is no lymphadenopathy. There are atherosclerotic calcifications of the abdominal without evidence of an aneurysm. No pathologically enlarged lymph nodes detected. The stomach, small bowel and appendix appear unremarkable. There is a moderate amount of stool within the colon. No evidence of diverticulitis. The uterus, adnexa, and urinary bladder are unremarkable. A syndesmotic screw through the left sacroiliac joint is noted. No acute fracture or subluxation. IMPRESSION: Bilateral nonobstructing nephrolithiasis. TECHNICAL DOCUMENTATION: Quality ID # [id number]: Final reports with documentation of one or more dose reduction techniques (e.g., Automated exposure control, adjustment of the mA and/or kV according to patient size, use of iterative reconstruction technique) copyright 2011 [employer]- All Rights Reserved
[2019-07-20] MEDS ORDERED: HYDROCODONE/ACETAMINOPHEN 5-325 MG TABLET PO ONE (01:23)
[2019-07-20] MEDS ORDERED: BACLOFEN 10 MG TABLET PO ONE (01:24)
[2019-07-20 01:33] VITALS: BP 123/96
== END 2019-07-20 01:33 | disposition home or self-care (01) ==
LOC: ER 19:58
DX: M54.5 Low back pain (principal); R10.9 Unspecified abdominal pain; I10 Essential (primary) hypertension; F17.200 Nicotine dependence, unspecified, uncomplicated
CPT/HCPCS: 99284; 96361; 96374; 96375; 36415; 83690; 84703; 85025; 80053; 81001; 74176; J1885; J1170; J2060; J2405; J7030

== ENCOUNTER 2019-08-17 20:53 | Emergency (ER) | payer SELFPAY ==
[2019-08-17] MEDS ORDERED: ONDANSETRON HCL INJ/PF 4 MG/2 ML SDV IV ONE (21:08)
[2019-08-17] MEDS ORDERED: KETOROLAC TROMETHAMINE INJ/PF 30 MG/1 ML SDV IV ONE (21:08)
[2019-08-17 21:54] LABS: ABSOLUTE BASOPHILS # (AUTO) 0.2 10^3/uL (0.0-0.2); ABSOLUTE EOSINOPHILS # (AUTO) 0.1 10^3/uL (0.0-0.6); ABSOLUTE LYMPHOCYTES (AUTO) 4.2 10^3/uL (0.5-4.7); ABSOLUTE MONOCYTES (AUTO) 0.6 10^3/uL (0.1-1.4); ABSOLUTE NEUT (AUTO) 7.2 10^3/uL (1.7-8.2); BASOPHILS % (AUTO) 1.3 % (0-2); EOSINOPHILS % (AUTO) 0.6 % (0-6); HEMOGLOBIN 13.6 g/dL (12.0-15.5); LYMPHOCYTES % (AUTO) 34.2 % (13-45); MEAN CORPUSCULAR HEMOGLOBIN 31.1 pg (27.0-33.4); MEAN CORPUSCULAR HGB CONC 35.8 g/dL (32.0-36.0); MEAN CORPUSCULAR VOLUME 87 fl (80-97); MONOCYTES % (AUTO) 5.2 % (3-13); PLATELET COUNT 514 10^3/uL (150-450); RED BLOOD COUNT 4.37 10^6/uL (3.72-5.28); RED CELL DISTRIBUTION WIDTH 14.8 % (11.5-14.0); SEGMENTED NEUTROPHILS % (AUTO) 58.7 % (42-78); TOTAL CELLS COUNTED % (AUTO) 100 %; WHITE BLOOD COUNT 12.3 10^3/uL (4.0-10.5)
[2019-08-17 21:59] LABS: APPEARANCE,URINE CLOUDY; BILIRUBIN,URINE NEGATIVE (NEGATIVE); COLOR,URINE YELLOW; GLUCOSE, URINE NEGATIVE (NEGATIVE); KETONES,URINE NEGATIVE (NEGATIVE); LEUKOCYTE ESTERASE,URINE NEGATIVE (NEGATIVE); NITRITE,URINE NEGATIVE (NEGATIVE); PROTEIN,URINE 30 mg/dL (NEGATIVE); URINE SPECIFIC GRAVITY 1.015; UROBILINOGEN,URINE NEGATIVE mg/dL (<2.0)
[2019-08-17 22:19] LABS: ALBUMIN 4.4 g/dL (3.5-5.0); ALKALINE PHOSPHATASE 115 U/L (38-126); ANION GAP 10 (5-19); ASPARTATE AMINO TRANSFERASE 18 U/L (14-36); BILIRUBIN,DIRECT 0.2 mg/dL (0.0-0.4); BILIRUBIN,TOTAL 0.3 mg/dL (0.2-1.3); BLOOD UREA NITROGEN 9 mg/dL (7-20); CALCIUM 9.8 mg/dL (8.4-10.2); CARBON DIOXIDE 22 mmol/L (22-30); CHLORIDE 106 mmol/L (98-107); GLUCOSE 91 mg/dL (75-110); POTASSIUM 4.6 mmol/L (3.6-5.0); TOTAL PROTEIN 7.8 g/dL (6.3-8.2)
[2019-08-17] MEDS ORDERED: LIDOCAINE 1% INJ (10 MG/ML) 10 ML MDV IVES ONE (23:40)
[2019-08-18 00:02] LABS: URINE AMPHETAMINES SCREEN NEGATIVE; URINE BARBITURATES SCREEN NEGATIVE; URINE BENZODIAZEPINES SCREEN NEGATIVE; URINE COCAINE SCREEN NEGATIVE; URINE MARIJUANA (THC) SCREEN NEGATIVE; URINE METHADONE SCREEN NEGATIVE; URINE PHENCYCLIDINE SCREEN NEGATIVE
[2019-08-18] MEDS ORDERED: ACETAMINOPHEN WITH CODEINE #3 TABLET PO ONE (01:47)
--- NOTE | 2019-08-18 01:54 | ER Document Report ---
ED General <STACIE LEON - Last Filed: 08/18/19 02:37> - General TRAVEL OUTSIDE OF THE [place] IN LAST 30 DAYS: No - Related Data Home Medications: proxa, lisinopril <CONCHA VALLE - Last Filed: 08/19/19 02:45> - General Chief Complaint: Flank Pain Stated Complaint: POSS KIDNEY STONE, RECTAL BLEEDING Time Seen by Provider: 08/17/19 21:23 Primary Care Provider: DEE GRAY MD [Primary Care Provider] - Follow up as needed - HPI Notes: 34-year-old female history of nephrolithiasis requiring distant stent, ovarian cysts presents with approximately 2 days of right flank pain. Patient says that she passed a stone in her urine around the time that symptoms started but did not relieve pain patient denies fever, vomiting, dysuria, hematuria, frequency, immune compromise, recent procedures, recent antibiotics, pelvic pain, vaginal discharge. Patient sexually active with 1 partner without protection. (CONCHA VALLE) - Related Data Allergies/Adverse Reactions: Sulfa (Sulfonamide Antibiotics) Allergy (Verified 08/17/19 21:00) Hives Past Medical History - General Information source: Patient - Social History Smoking Status: Current Every Day Smoker Chew tobacco use (# tins/day): No Frequency of alcohol use: None Drug Abuse: None Family History: Arthritis, CVA, DM, Hyperlipidemia, Hypertension, Malignancy, Thyroid Disfunction. denies: CAD, COPD Patient has suicidal ideation: No Patient has homicidal ideation: No - Past Medical History Cardiac Medical History: Reports: Hx Hypertension Pulmonary Medical History: Reports: Hx Bronchitis Neurological Medical History: Reports: Hx Migraine Renal/ Medical History: Reports: Hx Kidney Stones, Hx Ovarian Cysts. Denies: Hx Peritoneal Dialysis Musculoskeletal Medical History: Reports Hx Musculoskeletal Deformity, Reports Hx Musculoskeletal Trauma Skin Medical History: Reports Hx Cellulitis Traumatic Medical History: Reports: Hx Fractures - Pelvis and L4, Hx Spine Fracture Past Surgical History: Reports: Hx Adenoidectomy, Hx Breast Surgery - Cysts, Hx Section - x1, Hx Cholecystectomy, Hx Orthopedic Surgery - Rods and left hip, Hx Tonsillectomy, Hx Tubal Ligation, Hx Urinary Tract Surgery - kidney stent - Immunizations Immunizations up to date: Yes Hx Diphtheria, Pertussis, Tetanus Vaccination: Yes - 2009 <CONCHA VALLE - Last Filed: 08/19/19 02:45> Review of Systems <CONCHA VALLE - Last Filed: 08/19/19 02:45> - Review of Systems Notes: REVIEW OF SYSTEMS: CONSTITUTIONAL : Denies fever, chills, or sweats. EENT: Denies recent cold/sinus symptoms, denies throat pain CARDIOVASCULAR: Denies chest pain, TERESE RESPIRATORY: Denies cough, denies shortness of breath. GASTROINTESTINAL: Denies abdominal pain, nausea/vomiting. GENITOURINARY: Denies difficulty urinating, painful urination. FEMALE GENITOURINARY: Denies abnormal vaginal bleeding, vaginal discharge. MUSCULOSKELETAL: Denies neck pain, back pain. SKIN: Denies rash or skin lesions. HEMATOLOGIC : Denies easy bruising or bleeding. LYMPHATIC: Denies swollen, enlarged glands. NEUROLOGICAL: Denies headache, denies change in gait. PSYCHIATRIC: Denies anxiety or stress or depression. (CONCHA VALLE) Physical Exam <CONCHA VALLE - Last Filed: 08/19/19 02:45> - Vital signs Vitals: Temp Pulse Resp BP Pulse Ox 98.9 F 128 H 20 152/106 H 98 08/17/19 20:58 08/17/19 20:58 08/17/19 20:58 08/17/19 20:58 08/17/19 20:58 - Notes Notes: PHYSICAL EXAMINATION: GENERAL: Well-appearing, well-nourished and in no acute distress. HEAD: Atraumatic, normocephalic. EYES: Pupils equal round and appropriate constriction, sclera anicteric, conjunctiva are normal. ENT: nares patent, moist mucous membranes. NECK: Normal range of motion, supple without lymphadenopathy LUNGS: Breath sounds clear to auscultation bilaterally and equal. No wheezes rales or rhonchi. HEART: Regular rate and rhythm without murmurs ABDOMEN: Soft, nontender, no guarding, no masses, +CVAT with normal inspection PELVIC: Normal external genitalia, vaginal mucosa friable with scant excess clear discharge, cervix normal inspection nonerythematous no discharge from us, no CMT, no adnexal tenderness or masses EXTREMITIES: Normal range of motion, no pitting or edema. No cyanosis. NEUROLOGICAL: Awake, alert, conversing appropriately, moves all extremities spontaneously. PSYCH: Normal mood, normal affect. SKIN: Warm, Dry, normal turgor, no rashes or lesions noted. (CONCHA VALLE) Course - Laboratory Result Diagrams: 08/17/19 21:30 08/17/19 21:30 <STACIE LEON - Last Filed: 08/18/19 02:37> - Laboratory Result Diagrams: 08/17/19 21:30 08/17/19 21:30 <CONCHA VALLE - Last Filed: 08/19/19 02:45> - Re-evaluation Re-evalutation: 08/18/19 02:39 I did not see or examine this patient. Dr. Valle was unable to transmit the prescription for the acetaminophen with codeine due to technical difficulty with the [facility] system. I did prescribe this on behalf of Dr. Valle to facilitate patient care. (STACIE LEON) 08/18/19 02:36 Presentation suggestive of renal colic, but UA without signs of infection or blo od, bedside ultrasound performed showing no hydronephrosis on either side, and patient has had numerous recent visits with many CT scans performed consistently showing no obstructive nephrolithiasis. Patient says that she was in process of being evaluated for endometriosis when she stopped seeing her outpatient physicians, given the multitude of the ED work-ups without finding and the monthly nature of her symptoms consistent with endometriosis this is a likely cause of her symptoms. Pelvic exam consistent with candidal vulvovaginitis and patient DC with Diflucan, but no risk factors for PID and exam not consistent with PID, GC swab and vaginal cultures sent. Patient agreed with need for outpatient work-up with primary doctor and stitch separator and was in agreement with discharge and felt improved upon discharge from ED. I emphasized importance of this work-up as etiology of her symptoms is still unknown she said she would make appointments with these doctors. Extensive verbal return precautions were given which she demonstrated understanding of. 08/19/19 02:38 (CONCHA VALLE) - Vital Signs Vital signs: Temp Pulse Resp BP Pulse Ox 98.4 F 94 16 131/90 H 100 08/18/19 02:43 08/18/19 02:43 08/18/19 02:43 08/18/19 02:43 08/18/19 02:43 - Laboratory Laboratory results interpreted by me: 08/17/19 08/17/19 21:10 21:30 WBC 12.3 H RDW 14.8 H Plt Count 514 H Urine Protein 30 H Procedures - Ultrasound/Bedside Ultrasound/Bedside Time completed: 01:00 <CONCHA VALLE - Last Filed: 08/19/19 02:45> - Ultrasound/Bedside Ultrasound/Bedside Notes: 08/19/19 02:42 Renal ultrasound performed at bedside by myself obtained longitudinal and transverse views of right and left kidneys showing no hydronephrosis. (CONCHA VALLE) Discharge <SMOOTHMARYSTACIE - Last Filed: 08/18/19 02:37> <CONCHA VALLE - Last Filed: 08/19/19 02:45> - Discharge Clinical Impression: Flank pain Condition: Good Disposition: HOME, SELF-CARE Instructions: Flank Pain ([facility]), Vaginal Yeast Infection ([facility]) Additional Instructions: Vaginal Yeast Infection You have evidence of a yeast infection -- called "murali." A vaginal yeast infection often causes itching and discharge. While not dangerous, it can be very unpleasant. A yeast infection often follows the use of powerful antibiotics. It is more likely to occur in diabetics. The treatment now is usually a single pill of Diflucan, but also an antifungal cream or suppository may be used for a few days. You do not need to avoid sexual intercourse. Recurrences are common. You can make a recurrence less likely by wearing cotton underwear and avoiding tight clothing. For mild recurrences, you can try [id number] creams or suppositories that are made specifically for yeast. If the symptoms do not resolve, you should follow up for re-examination. Sometimes treatment of the sexual partner is necessary if infections are recurrent. Flank Pain We weren't able to prove an exact cause for your flank pain. Pain in the flank can be caused by a muscle strain or spasm. Sometimes a kidney stone causes pain, but can't be found on our tests. Infection in the kidney should be evident on a urine test. Early shingles can occasionally cause flank pain, without the rash that proves the diagnosis. On rare occasions, disease of the pancreas, aorta, spleen, or colon can create pain in the flank. At this time, there's no evidence of a dangerous condition, and it seems safe for you to be at home. If the pain goes away and does not come back, no further testing will be needed. If pain persists, or becomes more severe, we may need to repeat some tests or order additional new testing. Blood in the urine, urgency to urinate frequently, and pain that radiates to the groin can indicate a kidney stone. Fever may mean that the pain is due to infection, either of the kidney or the colon (diverticulitis). If your pain is early shingles, you should develop an eruption of blisters in the painful area within a few days. Call the doctor or return if you have pain that is spreading or becoming more severe, pain that does not resolve with time, fever, or any other new symptoms. Return to ED immediately if pain worsens, fever of 100.4, dizziness or fainting, or any other worsening or alarming symptoms. Prescriptions: Acetaminophen with Codeine [Tylenol #3 Tablet] 1 each PO Q6HP PRN #6 tablet PRN Reason: Fluconazole 200 mg PO ONCE #1 tablet Referrals: DEE GRAY MD [Primary Care Provider] - Follow up as needed
[2019-08-18 02:23] LABS: RBCS (WET MOUNT) RARE RBCS SEEN; T.VAGINALIS (WET MOUNT) NO TRICHOMONAS SEEN; WBCS (WET MOUNT) FEW WBCS SEEN; YEAST (WET MOUNT) NO YEAST SEEN
[2019-08-18 02:44] VITALS: BP 131/90
[2019-08-18 03:54] LABS: CHLAM PCR NOT DETECTED (NOT DETECT)
== END 2019-08-18 02:49 | disposition home or self-care (01) ==
LOC: ER 20:53
DX: R10.9 Unspecified abdominal pain (principal); F17.200 Nicotine dependence, unspecified, uncomplicated; I10 Essential (primary) hypertension; Z88.2 Allergy status to sulfonamides; Z98.51 Tubal ligation status
CPT/HCPCS: 99284; 96374; 96375; 36415; 87086; 87210; 83605; 83690; 84703; 85025; 80053; 81001; 80307; 87491; 87591; J1885; J2405

== ENCOUNTER 2019-08-31 19:44 | Emergency (ER) | payer SELFPAY ==
[2019-08-31] MEDS ORDERED: HYDROCODONE/ACETAMINOPHEN 5-325 MG TABLET PO ONE (20:20)
--- NOTE | 2019-08-31 20:20 | ER Document Report ---
ED Medical Screen (RME) - General Chief Complaint: Back Injury Stated Complaint: BACK/ARM INJURY Time Seen by Provider: 08/31/19 20:12 Primary Care Provider: DEE GRAY MD [Primary Care Provider] - Follow up as needed Mode of Arrival: Ambulatory Information source: Patient Notes: 34-year-old female presented to ED for complaint of pain to the left hip low back with a knot to the left hip pain and tingling down her right arm pain in her right shoulder and pain in her right clavicle for the last week. States she was jumping on the trampoline a week ago and the pain started soon after that. She states it is not getting any better with Tylenol and Motrin. She states she does have a history of kidney stents tonsillectomy bilateral tubal ligation cyst removed from her breast cholecystectomy pilonidal cyst removal and left hip fracture with a amanda. She states she does smoke 1/3 to 1/2 pack/day does not drink or use drugs. She states she lives with her significant other and her children. States she took Tylenol last about an hour ago and ibuprofen about 6 hours ago. I have greeted and performed a rapid initial assessment of this patient. A comprehensive ED assessment and evaluation of the patient, analysis of test results and completion of medical decision making process will be conducted by an additional ED providers. TRAVEL OUTSIDE OF THE [place] IN LAST 30 DAYS: No - Related Data Allergies/Adverse Reactions: Sulfa (Sulfonamide Antibiotics) Allergy (Verified 08/17/19 21:00) Hives Past Medical History - Past Medical History Cardiac Medical History: Reports: Hx Hypertension Pulmonary Medical History: Reports: Hx Bronchitis Neurological Medical History: Reports: Hx Migraine Renal/ Medical History: Reports: Hx Kidney Stones, Hx Ovarian Cysts. Denies: Hx Peritoneal Dialysis Musculoskeltal Medical History: Reports Hx Musculoskeletal Deformity, Reports Hx Musculoskeletal Trauma Skin Medical History: Reports Hx Cellulitis Traumatic Medical History: Reports: Hx Fractures - Pelvis and L4, Hx Spine Fracture Past Surgical History: Reports: Hx Adenoidectomy, Hx Breast Surgery - Cysts, Hx Section - x1, Hx Cholecystectomy, Hx Orthopedic Surgery - Rods and left hip, Hx Tonsillectomy, Hx Tubal Ligation, Hx Urinary Tract Surgery - kidney stent - Immunizations Immunizations up to date: Yes Hx Diphtheria, Pertussis, Tetanus Vaccination: Yes - 2009 Physical Exam - Vital signs Vitals: Temp Pulse Resp BP Pulse Ox 99.2 F 116 H 20 150/99 H 98 08/31/19 19:57 08/31/19 19:57 08/31/19 19:57 08/31/19 19:57 08/31/19 19:57 Course - Vital Signs Vital signs: Temp Pulse Resp BP Pulse Ox 99.2 F 116 H 20 150/99 H 98 08/31/19 19:57 08/31/19 19:57 08/31/19 19:57 08/31/19 19:57 08/31/19 19:57 Doctor's Discharge - Discharge Referrals: DEE GRAY MD [Primary Care Provider] - Follow up as needed
--- NOTE | 2019-08-31 20:48 | RADIOLOGY REPORT (SQ) ---
CLINICAL INDICATION: Fell on trampoline pain multiple areas. . TECHNIQUE: 3 view(s) were obtained of the right shoulder. Large [id number] imaging not centered on the shoulder COMPARISON: None. FINDINGS: No acute displaced fracture is identified of the shoulder. Alignment appears anatomic. Joint spaces are within normal limits for age. Surrounding soft tissues are unremarkable. IMPRESSION: No evidence of acute bony injury to the shoulder.
--- NOTE | 2019-08-31 20:48 | RADIOLOGY REPORT (SQ) ---
CLINICAL INDICATION: Fell on trampoline pain multiple areas. . TECHNIQUE: 2 view(s) obtained of the right clavicle. COMPARISON: None. FINDINGS: No acute displaced fracture is identified. Alignment appears anatomic. Joint spaces are within normal limits for age. Surrounding soft tissues are unremarkable. IMPRESSION: No acute displaced fracture is identified.
--- NOTE | 2019-08-31 20:49 | RADIOLOGY REPORT (SQ) ---
CLINICAL INDICATION: Fell on trampoline pain multiple areas. . TECHNIQUE: 2 view(s) were obtained of the left hip. COMPARISON: December 01, 2017. FINDINGS: No acute displaced fracture is identified of the hip. Alignment appears anatomic. Joint space is within normal limits for age. Surrounding soft tissues are unremarkable. Remote postsurgical change to the pelvis. Remote posttraumatic change IMPRESSION: No evidence of acute displaced fracture of the hip.
--- NOTE | 2019-08-31 20:50 | RADIOLOGY REPORT (SQ) ---
INDICATION: Fell on trampoline pain multiple areas. TECHNIQUE: 5 view(s) of the lumbar spine. Both obliques COMPARISON: June 11, 2014 FINDINGS: No evidence of acute displaced fracture. Alignment is anatomic. The facets and intervertebral joints are within normal limits for age. Vertebral body heights are well-maintained. Surrounding soft tissues are unremarkable. Remote postsurgical change to the pelvis/sacrum IMPRESSION: No evidence of acute displaced fracture of the lumbar spine.
[2019-08-31] MEDS ORDERED: OXYCODONE-ACETAMINOPHEN 5-325 MG TABLET PO ONE (22:46)
--- NOTE | 2019-08-31 22:58 | ER Document Report ---
ED General - General Chief Complaint: Fall Injury Stated Complaint: BACK/ARM INJURY Time Seen by Provider: 08/31/19 20:12 Primary Care Provider: DEE GRAY MD [Primary Care Provider] - Follow up as needed Mode of Arrival: Ambulatory TRAVEL OUTSIDE OF THE [place] IN LAST 30 DAYS: No - HPI Notes: Patient is a 34-year-old female who presents to the emergency department for evaluation. About a week ago she fell through a dry rotted trampoline. She fell onto her backside. She injured her shoulder, her right hand, her lower back, her posterior thighs. She is able to walk. She states she is primarily concerned because she has been having some numbness and tingling that goes from her right shoulder into her right forearm, then down towards her thumb. She states is intermittent. She denies any weakness. She did not lose consciousness. She said no nausea or vomiting. No visual changes. - Related Data Allergies/Adverse Reactions: Sulfa (Sulfonamide Antibiotics) Allergy (Verified 08/31/19 20:21) Hives Home Medications: lisinopril Past Medical History - General Information source: Patient - Social History Smoking Status: Current Every Day Smoker Chew tobacco use (# tins/day): No Frequency of alcohol use: None Drug Abuse: None Family History: Arthritis, CVA, DM, Hyperlipidemia, Hypertension, Malignancy, Thyroid Disfunction. denies: CAD, COPD Patient has suicidal ideation: No Patient has homicidal ideation: No - Past Medical History Cardiac Medical History: Reports: Hx Hypertension Pulmonary Medical History: Reports: Hx Bronchitis Neurological Medical History: Reports: Hx Migraine Renal/ Medical History: Reports: Hx Kidney Stones, Hx Ovarian Cysts. Denies: Hx Peritoneal Dialysis Musculoskeletal Medical History: Reports Hx Musculoskeletal Deformity, Reports Hx Musculoskeletal Trauma Skin Medical History: Reports Hx Cellulitis Traumatic Medical History: Reports: Hx Fractures - Pelvis and L4, Hx Spine Fracture Past Surgical History: Reports: Hx Adenoidectomy, Hx Breast Surgery - Cysts, Hx Section - x1, Hx Cholecystectomy, Hx Kidney (Renal Surgery) - stent, Hx Orthopedic Surgery - Rods and left hip, Hx Tonsillectomy, Hx Tubal Ligation, Hx Urinary Tract Surgery - kidney stent - Immunizations Immunizations up to date: Yes Hx Diphtheria, Pertussis, Tetanus Vaccination: Yes - 2009 Review of Systems - Review of Systems Musculoskeletal: See HPI Neurological/Psychological: See HPI -: Yes All other systems reviewed and negative Physical Exam - Vital signs Vitals: Temp Pulse Resp BP Pulse Ox 99.2 F 116 H 20 150/99 H 98 08/31/19 19:57 08/31/19 19:57 08/31/19 19:57 08/31/19 19:57 08/31/19 19:57 - Notes Notes: Vital signs reviewed, please refer to chart. Head is normocephalic, atraumatic. Pupils equal round, reactive to light. Oral mucosa is moist, uvula is midline. Heart is regular rate and rhythm. Lungs are clear to auscultation bilaterally. Abdomen is soft, nontender, normoactive bowel sounds throughout. Extremities without cyanosis, clubbing. Posterior calves are nontender. Peripheral pulses are equal. Skin is warm and dry. Patient has healing appearing ecchymosis in a linear fashion across both posterior thighs, approximately 10 cm inferior to the gluteal folds. She has a mild amount of ecchymosis over the right thenar eminence. Examination of the cervical spine is no midline tenderness or step- off. She has paraspinal musculature tenderness noted on the right with associated spasm throughout the cervical spine and into the trapezius. Examination of the remainder of the spine yields no midline tenderness or step- off. Mild paraspinal musculature tenderness noted to the left lower lumbar spine with associated spasm. Strength +5/5 bilateral upper extremities, brachioradialis and biceps reflexes are 2+, sensation is intact. Course - Re-evaluation Re-evalutation: 08/31/19 23:01 Patient presents to the emergency department for evaluation. She had multiple images as ordered through triage. She was given Vicodin but was still having pain, so was given oral Percocet. Her x-rays were all found to be unremarkable. I am still concerned about the possibility of a cervical spine lesion causing this intermittent numbness. Patient is sent for a CT scan of the cervical spine. 08/31/19 23:48 CT is unremarkable. Patient feeling improved. We will send her home with a Medrol Dosepak and muscle relaxers. She is to follow-up with primary care next week, return to the ER with worsening. - Vital Signs Vital signs: Temp Pulse Resp BP Pulse Ox 97.5 F 93 16 137/104 H 98 09/01/19 00:45 09/01/19 00:45 09/01/19 00:45 09/01/19 00:45 09/01/19 00:45 - Diagnostic Test Radiology reviewed: Reports reviewed Radiology results interpreted by me: 08/31/19 23:48 Clavicle X-Ray 08/31/19 20:16 IMPRESSION: No acute displaced fracture is identified. Hip X-Ray 08/31/19 20:16 IMPRESSION: No evidence of acute displaced fracture of the hip. Lumbar Spine X-Ray 08/31/19 20:16 IMPRESSION: No evidence of acute displaced fracture of the lumbar spine. Shoulder X-Ray 08/31/19 20:16 IMPRESSION: No evidence of acute bony injury to the shoulder. Cervical Spine CT 08/31/19 22:46 IMPRESSION: No acute bony injury is seen to the cervical spine. Discharge - Discharge Clinical Impression: Contusion of leg, left, multiple sites, Contusion of right leg, Right shoulder pain, Tingling of right upper extremity Condition: Stable Disposition: HOME, SELF-CARE Instructions: Ice Packs ([facility]), Low Back Pain ([facility]), Muscle Strain ([facility]), Oral Narcotic Medication ([facility]) Additional Instructions: Take medications as prescribed. Please watch for dizziness and drowsiness with muscle relaxer. Follow-up with your primary care provider next week. Return emergency department with worsening or concerning symptoms of any sort. Prescriptions: Cyclobenzaprine HCl [Flexeril 10 mg Tablet] 10 mg PO TIDP PRN #15 tab PRN Reason: Naproxen [Naprosyn] 500 mg PO BID #20 tablet Referrals: DEE GRAY MD [Primary Care Provider] - Follow up as needed
--- NOTE | 2019-08-31 23:44 | RADIOLOGY REPORT (SQ) ---
INDICATION: injury, numbness right arm. COMPARISON: None CORRELATION: None TECHNIQUE: Noncontrast spiral axial CT images were obtained through the cervical spine with multiplanar reconstructions. This exam was performed according to our departmental dose-optimization program, which includes automated exposure control, adjustment of the mA and/or kV according to patient size and/or use of iterative reconstruction techniques. FINDINGS: No acute displaced fracture is identified of the cervical spine. Alignment is anatomic. No focal alignment abnormality is identified. The uncovertebral joints and facets are within normal limits, for age. Surrounding soft tissues of the neck are unremarkable. The pharynx appears symmetric. Thyroid is homogeneous. The lung apices are grossly clear. IMPRESSION: No acute bony injury is seen to the cervical spine.
[2019-09-01] MEDS: HYDROCODONE/ACETAMINOPHEN 5-325 MG (6 TAB/ER DISP) PO PRN ×2 (00:58→01:04)
[2019-09-01 01:42] VITALS: BP 137/104
== END 2019-09-01 00:45 | disposition home or self-care (01) ==
LOC: ER 19:44
DX: S70.12XA Contusion of left thigh, initial encounter (principal); S70.11XA Contusion of right thigh, initial encounter; S60.221A Contusion of right hand, initial encounter; S49.90XA Unspecified injury of shoulder and upper arm, unspecified arm, initial encounter; S39.92XA Unspecified injury of lower back, initial encounter; M25.511 Pain in right shoulder; R20.2 Paresthesia of skin; R20.0 Anesthesia of skin; M62.830 Muscle spasm of back; M62.838 Other muscle spasm; W13.8XXA Fall from, out of or through other building or structure, initial encounter; Y93.44 Activity, trampolining; F17.200 Nicotine dependence, unspecified, uncomplicated; I10 Essential (primary) hypertension; Z87.81 Personal history of (healed) traumatic fracture
CPT/HCPCS: 72110; 72125; 99284

== ENCOUNTER 2019-09-09 13:55 | Emergency (ER) | payer SELFPAY ==
[2019-09-09] MEDS ORDERED: HYDROCODONE/ACETAMINOPHEN 5-325 MG TABLET PO ONE (14:33)
[2019-09-09] MEDS ORDERED: CYCLOBENZAPRINE HCL 10 MG TABLET PO ONE (14:33)
--- NOTE | 2019-09-09 14:33 | ER Document Report ---
ED Extremity Problem, Upper - General Chief Complaint: Shoulder Pain Stated Complaint: SHOULDER BLADE PAIN/PREVIOUS FALL Time Seen by Provider: 09/09/19 14:26 Primary Care Provider: DEE GRAY MD [Primary Care Provider] - Follow up as needed Mode of Arrival: Ambulatory Information source: Patient Notes: 34-year-old female presented to ED for pain to her left shoulder under the shoulder blade back and neck. She was seen here on August [address] of the neck x-ray of the shoulder x-ray of the scapula low back and hip. These were all discussed with her and reports given to her. She was given instructions to follow-up with her primary care doctor. She states she is not working right now due to the coronavirus and cannot afford to go to her primary care or the orthopedics at this time. She states she has been taking ibuprofen 800 mg and she took all of her Flexeril and she is still hurting. She does have a history of high blood pressure migraines kidney stones and bronchitis. She smokes 1/2 pack a day does not drink or do any illicit drugs. She is not working at this time due to the pandemic coronavirus. TRAVEL OUTSIDE OF THE [place] IN LAST 30 DAYS: No - HPI Patient complains to provider of: Left, Shoulder Onset: Other - Around 2 to 3 weeks ago Recent injury: Yes Where: Outdoors Quality of pain: Sharp, Throbbing Severity of pain: Moderate - Fell on a trampoline several weeks ago Pain Level: 4 Context: Fall Associated symptoms: Back pain - Shoulder neck Exacerbated by: Movement, Exertion Relieved by: Nothing Similar symptoms previously: Yes Recently seen / treated by doctor: Yes - Related Data Allergies/Adverse Reactions: Sulfa (Sulfonamide Antibiotics) Allergy (Verified 09/09/19 14:23) Hives Past Medical History - General Information source: Patient - Social History Smoking Status: Current Every Day Smoker Cigarette use (# per day): Yes - Half pack per day Smoking Education Provided: Yes - 4 minutes Frequency of alcohol use: None Drug Abuse: None Lives with: Spouse/Significant other Family History: Arthritis, CVA, DM, Hyperlipidemia, Hypertension, Malignancy, Thyroid Disfunction. denies: CAD, COPD Patient has suicidal ideation: No Patient has homicidal ideation: No - Past Medical History Cardiac Medical History: Reports: Hx Hypertension Pulmonary Medical History: Reports: Hx Bronchitis EENT Medical History: Reports: None Neurological Medical History: Reports: Hx Migraine Endocrine Medical History: Reports: None Renal/ Medical History: Reports: Hx Kidney Stones, Hx Ovarian Cysts Malignancy Medical History: Reports: None GI Medical History: Reports: None Musculoskeletal Medical History: Reports Hx Musculoskeletal Deformity, Reports Hx Musculoskeletal Trauma Skin Medical History: Reports Hx Cellulitis Psychiatric Medical History: Reports: None Traumatic Medical History: Reports: Hx Fractures - Pelvis and L4, Hx Spine Fracture Infectious Medical History: Reports: None Past Surgical History: Reports: Hx Adenoidectomy, Hx Breast Surgery - Cysts, Hx Section - x1, Hx Cholecystectomy, Hx Kidney (Renal Surgery) - stent, Hx Orthopedic Surgery - Rods and left hip, Hx Tonsillectomy, Hx Tubal Ligation, Hx Urinary Tract Surgery - kidney stent - Immunizations Immunizations up to date: Yes Hx Diphtheria, Pertussis, Tetanus Vaccination: Yes - 2009 Review of Systems - Review of Systems Constitutional: No symptoms reported EENT: No symptoms reported Cardiovascular: No symptoms reported Respiratory: No symptoms reported Gastrointestinal: No symptoms reported Genitourinary: No symptoms reported Female Genitourinary: No symptoms reported Musculoskeletal: Joint pain, Joint swelling, Muscle pain, Muscle stiffness Skin: No symptoms reported Hematologic/Lymphatic: No symptoms reported Neurological/Psychological: No symptoms reported Physical Exam - Vital signs Vitals: Temp Pulse Resp BP Pulse Ox 98.3 F 96 16 152/99 H 99 09/09/19 14:00 09/09/19 14:00 09/09/19 14:00 09/09/19 14:00 09/09/19 14:00 Interpretation: Normal - General General appearance: Appears well, Alert - HEENT Head: Normocephalic, Atraumatic Eyes: Normal Pupils: PERRL - Respiratory Respiratory status: No respiratory distress Chest status: Nontender Breath sounds: Normal Chest palpation: Normal - Cardiovascular Rhythm: Regular Heart sounds: Normal auscultation Murmur: No - Abdominal Inspection: Normal Distension: No distension Bowel sounds: Normal Tenderness: Nontender Organomegaly: No organomegaly - Back Back: Normal, Nontender - Extremities General upper extremity: Normal color, Normal temperature General lower extremity: Normal inspection, Nontender, Normal color, Normal ROM, Normal temperature, Normal weight bearing. No: Alicia's sign Shoulder: Tender. No: Abrasion, Ecchymosis, Instability, Laceration, Limited ROM - With range of motion but has full range of motion - Neurological Neuro grossly intact: Yes Cognition: Normal Orientation: AAOx4 Willow Coma Scale Eye Opening: Spontaneous Gavi Coma Scale Verbal: Oriented Gavi Coma Scale Motor: Obeys Commands Willow Coma Scale Total: 15 Speech: Normal Motor strength normal: LUE, RUE, LLE, RLE Sensory: Normal - Psychological Associated symptoms: Normal affect, Normal mood - Skin Skin Temperature: Warm Skin Moisture: Dry Skin Color: Normal Course - Re-evaluation Re-evalutation: 09/09/19 14:42 Discussed previous x-rays and CTs with patient. Patient states she did not have the money for more x-rays. She states she cannot afford to go to the doctor yet. I did give her more Flexeril for her muscle pain. She has naproxen or and ibuprofen she takes at home. I did give her 1 [place] while in the emergency room. She verbalized understanding that she needs to follow-up with her primary and/or orthopedics. Patient was discharged home. - Vital Signs Vital signs: Temp Pulse Resp BP Pulse Ox 98.3 F 96 16 152/99 H 99 09/09/19 14:00 09/09/19 14:00 09/09/19 14:00 09/09/19 14:00 09/09/19 14:00 Discharge - Discharge Clinical Impression: Neck pain Left shoulder pain Qualifiers: Chronicity: unspecified Qualified Code(s): M25.512 - Pain in left shoulder Condition: Stable Disposition: HOME, SELF-CARE Additional Instructions: Shoulder Injury You have injured your shoulder. This usually results from stretching or tearing of the tendons during trauma. Time and protection are required in order to heal properly. Many injuries are quite disabling, and should be taken seriously. Initial treatment includes cold packs and a sling to rest the shoulder. The physician has assessed the seriousness of your injury, and has outlined a treatment plan. Understand that this treatment may change, depending on how you progress. If a re-examination was recommended, it is important that you follow up as instructed. Some shoulder injuries (such as partial tear of the rotator cuff) are only suspected after you've failed to improve. Call us if there's severe pain, numbness, or loss of function. Exercise Program for the Shoulder Since the shoulder moves in so many directions, the joint attachment is weak. Muscles provide most of the stability to the shoulder. You must exercise your shoulder to prevent painful instability or stiffening. PASSIVE - These may be begun within a few days of the injury. While st anding, lean forward, allowing the arm to hang down towards the floor. Move the arm in small circles while slowly twisting your chest towards and away from the hanging arm. Do this for one minute. ACTIVE - These may be performed when the doctor gives permission. Begin with the arms at the sides. Raise the arms forward (shoulder's width apart) until they reach shoulder level. Then slowly swing both arms back until they are aiming straight out away from each other. Then bring them forward again, and finally, lower them to your sides. Repeat 20 to 30 times. As you improve, put weights in your hands for the exercise. Start with one pound, and work up to 10 pounds. Never use more than is comfortable. Athletes may work up to 30 pounds. NECK INJURY (CERVICAL STRAIN): You have a neck strain. This is an injury to the muscles and ligaments in the neck. There is no evidence of a fracture of the neck bones. Also, no injury to the spinal cord or nerve roots was detected. Usually, stiffness and pain INCREASE for the first 24-48 hours after the injury. The pain will gradually resolve and the neck will become more mobile. Most patients are back at work or school within a few days. Typically, complete healing takes about two or three weeks. The usual initial treatment is rest and cold packs. A neck collar may be placed to keep the muscles of the neck at rest. Antiinflammatory and muscle relaxing medication are often used to reduce the spasm and irritation. You should call the doctor, or go to the hospital, if you develop numbness or weakness in any extremity, problems with your bladder or bowel, or pain radiating down the arms. USE OF TYLENOL (ACETAMINOPHEN): Acetaminophen may be taken for pain relief or fever control. It's much safer than aspirin, offering a wider range of "safe" dosages. It is safe during . Some brand names are Tylenol, Panadol, Datril, Anacin 3, Tempra, and Liquiprin. Acetaminophen can be repeated every four hours. The following are maximum recommended dosages: WEIGHT Dose Drops Elixir Chewable(80mg) (LBS.) drprs=droppers tsp=teaspoon 6 40 mg 0.4 ml (1/2) 6-11 80 mg 0.8 ml (full) tsp 1 tab 12-16 120 mg 1 1/2 drprs 3/4 tsp 1 1/2 tabs 17-23 160 mg 2 drprs 1 tsp 2 tabs 24-30 240 mg 3 drprs 1 1/2 tsp 3 tabs 30-35 320 mg 2 tsp 4 tabs 36-41 360 mg 2 1/4 tsp 4 1/2 tabs 42-47 400 mg 2 1/2 tsp 5 tabs 48-53 480 mg 3 tsp 6 tabs 54-59 520 mg 3 1/4 tsp 6 1/2 tabs 60-64 560 mg 3 1/2 tsp 7 tabs 65-70 600 mg 3 3/4 tsp 7 1/2 tabs 71-76 640 mg 4 tsp 8 tabs 77-82 720 mg 4 1/2 tsp 9 tabs 83-88 800 mg 5 tsp 10 tabs >89 pounds or adults 650 mg to 900 mg Acetaminophen can be repeated every four hours. Maximum dose not to exceed 4000 mg a day. These maximum recommended dosages are slightly higher than the dosages written on the product container, but these dosages are very safe and below the toxic dosage for acetaminophen. ICE PACKS: Apply ice packs frequently against the painful area. Many different schedules are recommended, such as "20 minutes on, 20 minutes off" or "one hour ice, two hours rest." If you need to work, you may need to go longer between ice treatments. You should plan to have the area ice packed AT LEAST one fourth of the time. The ice should be applied over the wrap, tape, or splint, or over a layer of cloth -- not directly against the skin. Some ice bags have a built-in cloth and can be put directly on the skin. WARM PACKS: After approximately two days, apply gentle heat (such as a heating pad or hot water bottle) for about 20 to 30 minutes about every two hours -- at least four times daily. Warmth and elevation will help you make a more rapid recovery, and will ease the pain considerably. Do not use HOT heat, and never apply heat for longer than 30 minutes. The continuous heat can invisibly damage skin and muscles -- even when no burn is seen on the surface. Damaged muscles can make you MORE sore. MUSCLE RELAXERS: Muscle relaxing medications are usually prescribed for acute muscle spasm or injury to the neck and back. They are often combined with antiinflammatory pain medication for increased relief. You may stop the muscle relaxer when the pain and stiffness have improved. Start the medication again if spasms recur. Muscle relaxers may cause drowsiness, especially with the first dose. Do not operate machinery or drive while under the effects of the medication. Most muscle relaxers last up to 24 hours. Do not combine the medication with alcohol. ORAL NARCOTIC MEDICATION: You have been given a [place] for pain control. This medication is a narcotic. It's best taken with food, as nausea can result if taken on an empty stomach. Don't operate machinery or drive within six hours of taking this medication. Do not combine this medicine with alcohol, or with any medication which can cause sedation (such as cold tablets or sleeping pills) unless you get permission from the physician. Narcotics tend to cause constipation. If possible, drink plenty of fluids and eat a diet high in fiber and fruits. FOLLOW-UP CARE: If you have been referred to a physician for follow-up care, call the physicians office for an appointment as you were instructed or within the next two days. If you experience worsening or a significant change in your symptoms, notify the physician immediately or return to the Emergency Department at any time for re-evaluation. Prescriptions: Cyclobenzaprine HCl [Flexeril 10 mg Tablet] 10 mg PO TIDP PRN #15 tab PRN Reason: Forms: Elevated Blood Pressure, Smoking Cessation Education Referrals: DEE GRAY MD [Primary Care Provider] - Follow up in 3-5 days JAVID CHANG JR, DO [ACTIVE PROVISIONAL STAFF] - Follow up in 3-5 days
[2019-09-09 14:34] VITALS: BP 133/90
== END 2019-09-09 14:41 | disposition home or self-care (01) ==
LOC: ER 13:55
DX: M25.512 Pain in left shoulder (principal); M54.2 Cervicalgia; W19.XXXA Unspecified fall, initial encounter; M79.10 Myalgia, unspecified site; M25.40 Effusion, unspecified joint; I10 Essential (primary) hypertension; F17.210 Nicotine dependence, cigarettes, uncomplicated; Z71.6 Tobacco abuse counseling; Z88.2 Allergy status to sulfonamides
CPT/HCPCS: 99283; 99406

== ENCOUNTER 2019-09-17 02:33 | Emergency (ER) | payer SELFPAY ==
[2019-09-17] MEDS ORDERED: LIDOCAINE 1% INJ (10 MG/ML) 10 ML MDV INJ ONE (02:59)
--- NOTE | 2019-09-17 03:00 | ER Document Report ---
HPI - HPI Patient complains to provider of: Right great toe injury Time Seen by Provider: 09/17/19 02:50 Onset: Just prior to arrival Onset/Duration: Sudden Quality of pain: Sharp, Stabbing Pain Level: 5 Context: Patient states she slipped in the shower stubbing her right great toe. Patient with nail injury to right great toe. Exacerbated by: Movement, Walking Relieved by: Denies Similar symptoms previously: No Recently seen / treated by doctor: No - ROS ROS below otherwise negative: Yes Systems Reviewed and Negative: Yes All other systems reviewed and negative - CONSTITUTIONAL Constitutional: DENIES: Fever, Chills - REPRODUCTIVE Reproductive: DENIES: : - DERM Skin Color: Normal Notes: Nail avulsion Past Medical History - General Information source: Patient - Social History Smoking Status: Current Every Day Smoker Frequency of alcohol use: Social Drug Abuse: None Occupation: None Lives with: Family Family History: Arthritis, CVA, DM, Hyperlipidemia, Hypertension, Malignancy, Thyroid Disfunction. denies: CAD, COPD Patient has homicidal ideation: No - Past Medical History Cardiac Medical History: Reports: Hx Hypertension Pulmonary Medical History: Reports: Hx Bronchitis Neurological Medical History: Reports: Hx Migraine Renal/ Medical History: Reports: Hx Kidney Stones, Hx Ovarian Cysts. Denies: Hx Peritoneal Dialysis Musculoskeletal Medical History: Reports Hx Musculoskeletal Deformity, Reports Hx Musculoskeletal Trauma Skin Medical History: Reports Hx Cellulitis Traumatic Medical History: Reports: Hx Fractures - Pelvis and L4, Hx Spine Fracture Past Surgical History: Reports: Hx Adenoidectomy, Hx Breast Surgery - Cysts, Hx Section - x1, Hx Cholecystectomy, Hx Kidney (Renal Surgery) - stent, Hx Orthopedic Surgery - Rods and left hip, Hx Tonsillectomy, Hx Tubal Ligation, Hx Urinary Tract Surgery - kidney stent - Immunizations Immunizations up to date: Yes Hx Diphtheria, Pertussis, Tetanus Vaccination: Yes - 2009 Vertical Provider Document - CONSTITUTIONAL Agree With Documented VS: Yes Exam Limitations: No Limitations General Appearance: WD/WN, No Apparent Distress - INFECTION CONTROL TRAVEL OUTSIDE OF THE [place] IN LAST 30 DAYS: No - HEENT HEENT: Atraumatic, Normocephalic - NECK Neck: Normal Inspection - RESPIRATORY Respiratory: No Respiratory Distress - CARDIOVASCULAR Pulses: Normal: Dorsalis pedis - MUSCULOSKELETAL/EXTREMETIES Musculoskeletal/Extremeties: MAEW, Tender - Right great toe tenderness with near complete nail avulsion, No Edema. negative: Eccymosis - NEURO Level of Consciousness: Awake, Alert, Appropriate Motor/Sensory: No Motor Deficit - DERM Integumentary: Warm, Dry, No Rash Course - Vital Signs Vital signs: Temp Pulse Resp BP Pulse Ox 98.2 F 126 H 16 131/88 H 98 09/17/19 02:51 09/17/19 02:38 09/17/19 02:38 09/17/19 02:38 09/17/19 02:38 - Diagnostic Test Radiology reviewed: Image reviewed, Reports reviewed Procedures - Nail Trephanation/Removal Right Great toe Nail Trepanation/Removal Location: Right great toenail removal Betadine prep applied: Yes Sterile Dressing Applied: Yes Notes: 09/17/19 03:51 After toe was anesthetized with digital block, nail was removed with gentle traction. Discharge - Discharge Clinical Impression: Nail avulsion, toe Qualifiers: Encounter type: initial encounter Qualified Code(s): S91.209A - Unspecified open wound of unspecified toe(s) with damage to nail, initial encounter Condition: Stable Disposition: HOME, SELF-CARE Instructions: Avulsed Nail ([facility]), Dressing Instructions for Open Wounds ([facility]) Additional Instructions: Return immediately for any new or worsening symptoms Followup with your primary care provider, call tomorrow to make a followup appointment Prescriptions: Naproxen [Naprosyn 250 Nmg Tablet] 1 tab PO BID #14 tablet Referrals: DEE GRAY MD [Primary Care Provider] - Follow up as needed [facility] [Provider Group] - Follow up as needed
--- NOTE | 2019-09-17 03:46 | RADIOLOGY REPORT (SQ) ---
EXAM DESCRIPTION: XR TOES 2 OR MORE VIEWS COMPLETED DATE/TME: 09/17/2019 02:58 CLINICAL HISTORY: 34 years Female, r gr toe injury COMPARISON: None. Findings: Known soft tissue injury at the nailbed of the right great toe; no radioopaque foreign body. Bones, joints, and soft tissues of the RIGHT XR TOES 3 VIEWS appear otherwise intact. IMPRESSION: Soft tissue injury; else, no acute findings. .
[2019-09-17] MEDS ORDERED: HYDROCODONE/ACETAMINOPHEN 5-325 MG TABLET PO ONE (03:50)
[2019-09-17 04:00] VITALS: BP 126/85
== END 2019-09-17 04:07 | disposition home or self-care (01) ==
LOC: ER 02:33
DX: S91.201A Unspecified open wound of right great toe with damage to nail, initial encounter (principal); X58.XXXA Exposure to other specified factors, initial encounter; F17.200 Nicotine dependence, unspecified, uncomplicated; I10 Essential (primary) hypertension
CPT/HCPCS: 99283

== ENCOUNTER 2020-02-11 17:10 | Emergency (ER) | payer SELFPAY ==
[2020-02-11 17:20] VITALS: BP 114/81
[2020-02-11] MEDS ORDERED: ONDANSETRON 4 MG TAB.RAPDIS PO ONE (18:13)
[2020-02-11] MEDS ORDERED: HYDROCODONE/ACETAMINOPHEN 5-325 MG TABLET PO ONE ×2 (18:13→20:58)
--- NOTE | 2020-02-11 18:16 | ER Document Report ---
ED Medical Screen (RME) - General Chief Complaint: Fall Injury Stated Complaint: FALL/RIGHT LEG,ARM,BACK PAIN Time Seen by Provider: 02/11/20 18:07 Primary Care Provider: DEE GRAY MD [Primary Care Provider] - Follow up as needed Mode of Arrival: Ambulatory Information source: Patient Notes: HPI; 34-year-old female presents to the emergency room complaining of right knee upper back pain secondary to a trip and fall over her dog last night. States she hit her knee on the floor and hit her back on her dryer. States she "heard a pop to the right knee". History of previous ligament damage to her right knee. States she started with with nausea, vomiting, and one episode of diarrhea approximately 2 hours ago. She denies any recent travel. She denies any COVID- 19 exposure denies any ill contacts. Denies any bad food. No recent antibiotics. States she took Goody powder earlier without relief of pain. She denies any chance of . PE: Alert and oriented x3. Mild distress noted. Lungs: Clear to auscultation without rales, rhonchi, wheezes. Heart: Tachycardic without murmurs, rubs, gallops. Tenderness to the upper back between T4 and T6 with no obvious deformity palpated. Right knee is tender to palpation. Negative anterior, posterior drawer, negative Rico's, negative Ramona's. Painful range of motion with extension to the right knee. No obvious deformity noted. Patient noted to be limping on right leg. I have greeted and performed a rapid initial assessment of this patient. A comprehensive ED assessment and evaluation of the patient, analysis of test results and completion of the medical decision making process will be conducted by additional ED providers. I have specifically instructed the patient or family members with the patient to immediately return to any nursing staff should anything change in the patient's condition or with their chief complaint. TRAVEL OUTSIDE OF THE [place] IN LAST 30 DAYS: No - Related Data Allergies/Adverse Reactions: Sulfa (Sulfonamide Antibiotics) Allergy (Verified 09/09/19 14:23) Hives Past Medical History - Past Medical History Cardiac Medical History: Reports: Hx Hypertension Pulmonary Medical History: Reports: Hx Bronchitis Neurological Medical History: Reports: Hx Migraine Renal/ Medical History: Reports: Hx Kidney Stones, Hx Ovarian Cysts. Denies: Hx Peritoneal Dialysis Musculoskeltal Medical History: Reports Hx Musculoskeletal Deformity, Reports Hx Musculoskeletal Trauma Skin Medical History: Reports Hx Cellulitis Traumatic Medical History: Reports: Hx Fractures - Pelvis and L4, Hx Spine Fracture Past Surgical History: Reports: Hx Adenoidectomy, Hx Breast Surgery - Cysts, Hx Section - x1, Hx Cholecystectomy, Hx Kidney (Renal Surgery) - stent, Hx Orthopedic Surgery - Rods and left hip, Hx Tonsillectomy, Hx Tubal Ligation, Hx Urinary Tract Surgery - kidney stent - Immunizations Immunizations up to date: Yes Hx Diphtheria, Pertussis, Tetanus Vaccination: Yes - 2009 Physical Exam - Vital signs Vitals: Temp Pulse Resp BP Pulse Ox 98.8 F 103 H 16 114/81 99 02/11/20 17:18 02/11/20 17:18 02/11/20 17:18 02/11/20 17:18 02/11/20 17:18 Course - Vital Signs Vital signs: Temp Pulse Resp BP Pulse Ox 98.8 F 103 H 16 114/81 99 02/11/20 17:18 02/11/20 17:18 02/11/20 17:18 02/11/20 17:18 02/11/20 17:18 Doctor's Discharge - Discharge Referrals: DEE GRAY MD [Primary Care Provider] - Follow up as needed
[2020-02-11 18:49] LABS: ABSOLUTE BASOPHILS # (AUTO) 0.1 10^3/uL (0.0-0.2); ABSOLUTE EOSINOPHILS # (AUTO) 0.1 10^3/uL (0.0-0.6); ABSOLUTE LYMPHOCYTES (AUTO) 4.8 10^3/uL (0.5-4.7); ABSOLUTE MONOCYTES (AUTO) 0.5 10^3/uL (0.1-1.4); ABSOLUTE NEUT (AUTO) 5.4 10^3/uL (1.7-8.2); BASOPHILS % (AUTO) 0.8 % (0-2); EOSINOPHILS % (AUTO) 0.5 % (0-6); HEMATOCRIT 37.2 % (36.0-47.0); HEMOGLOBIN 13.5 g/dL (12.0-15.5); LYMPHOCYTES % (AUTO) 44.2 % (13-45); MEAN CORPUSCULAR HEMOGLOBIN 31.6 pg (27.0-33.4); MEAN CORPUSCULAR HGB CONC 36.2 g/dL (32.0-36.0); MEAN CORPUSCULAR VOLUME 87 fl (80-97); MONOCYTES % (AUTO) 4.9 % (3-13); PLATELET COUNT 448 10^3/uL (150-450); RED BLOOD COUNT 4.26 10^6/uL (3.72-5.28); RED CELL DISTRIBUTION WIDTH 15.4 % (11.5-14.0); SEGMENTED NEUTROPHILS % (AUTO) 49.6 % (42-78); TOTAL CELLS COUNTED % (AUTO) 100 %; WHITE BLOOD COUNT 10.9 10^3/uL (4.0-10.5)
[2020-02-11 18:52] LABS: APPEARANCE,URINE CLOUDY; BILIRUBIN,URINE NEGATIVE (NEGATIVE); COLOR,URINE YELLOW; GLUCOSE, URINE NEGATIVE (NEGATIVE); KETONES,URINE NEGATIVE (NEGATIVE); LEUKOCYTE ESTERASE,URINE TRACE (NEGATIVE); NITRITE,URINE NEGATIVE (NEGATIVE); PROTEIN,URINE 30 mg/dL (NEGATIVE); URINE SPECIFIC GRAVITY 1.028
[2020-02-11 19:07] LABS: ALBUMIN 4.4 g/dL (3.5-5.0); ALKALINE PHOSPHATASE 184 U/L (38-126); ANION GAP 9 (5-19); ASPARTATE AMINO TRANSFERASE 18 U/L (14-36); BILIRUBIN,DIRECT 0.3 mg/dL (0.0-0.4); BILIRUBIN,TOTAL 0.3 mg/dL (0.2-1.3); BLOOD UREA NITROGEN 8 mg/dL (7-20); CALCIUM 9.7 mg/dL (8.4-10.2); CARBON DIOXIDE 23 mmol/L (22-30); CHLORIDE 111 mmol/L (98-107); GLUCOSE 95 mg/dL (75-110); POTASSIUM 4.1 mmol/L (3.6-5.0); TOTAL PROTEIN 7.8 g/dL (6.3-8.2)
--- NOTE | 2020-02-11 19:08 | RADIOLOGY REPORT (SQ) ---
EXAM DESCRIPTION: KNEE RIGHT 4 VIEWS IMAGES COMPLETED DATE/TIME: 02/11/2020 5:43 pm REASON FOR STUDY: injury COMPARISON: None. NUMBER OF VIEWS: Four views. TECHNIQUE: AP, lateral, and both oblique radiographic images acquired of the right knee. LIMITATIONS: None. FINDINGS: MINERALIZATION: Normal. BONES: No acute fracture or dislocation. No worrisome bone lesions. JOINT: No effusion. SOFT TISSUES: No soft tissue swelling. No radio-opaque foreign body. OTHER: No other significant finding. IMPRESSION: NEGATIVE STUDY OF THE RIGHT KNEE. NO RADIOGRAPHIC EVIDENCE OF ACUTE INJURY. TECHNICAL DOCUMENTATION: JOB ID: [id number] 2010 [employer]- All Rights Reserved Reading location - IP/workstation name: [email or web address]
--- NOTE | 2020-02-11 19:13 | RADIOLOGY REPORT (SQ) ---
EXAM DESCRIPTION: T SPINE AP/LAT IMAGES COMPLETED DATE/TIME: 02/11/2020 6:43 pm REASON FOR STUDY: injury COMPARISON: None. NUMBER OF VIEWS: Two views. TECHNIQUE: AP and lateral radiographic images acquired of the thoracic spine. LIMITATIONS: None. FINDINGS: MINERALIZATION: Normal. ALIGNMENT: Normal. No scoliosis. VERTEBRAE: No fracture or bone lesion. Maintained height, normal segmentation. DISCS: No significant loss of height or significant narrowing. No large osteophytes. HARDWARE: None in the spine. MEDIASTINUM AND SOFT TISSUES: Normal heart size and aortic contour. No soft tissue abnormality. VISUALIZED LUNG HERNÁNDEZ: Clear. OTHER: No other significant finding. IMPRESSION: NO SIGNIFICANT RADIOGRAPHIC FINDING IN THE THORACIC SPINE. TECHNICAL DOCUMENTATION: JOB ID: [id number] 2010 [employer]- All Rights Reserved Reading location - IP/workstation name: [email or web address]
[2020-02-11] MEDS ORDERED: KETOROLAC TROMETHAMINE 60 MG/2 ML SDV IM ONE (20:58)
--- NOTE | 2020-02-11 21:03 | ER Document Report ---
ED Fall - General Chief Complaint: Fall Injury Stated Complaint: FALL/RIGHT LEG,ARM,BACK PAIN Time Seen by Provider: 02/11/20 18:07 Primary Care Provider: DEE GRAY MD [NO LOCAL MD] - Follow up as needed Mode of Arrival: Ambulatory Information source: Patient Notes: Patient is a 34-year-old female who presents emergency department after a fall. She tripped over her dog last night and landed on her hand. Thoracic back area. Patient is able to walk but states that she has history of ligament problems. She received [place] in triage and states that it helped her a little bit. Denies hitting her head. Denies any loss of consciousness. TRAVEL OUTSIDE OF THE [place] IN LAST 30 DAYS: No - Related data Allergies/Adverse Reactions: Sulfa (Sulfonamide Antibiotics) Allergy (Verified 09/09/19 14:23) Hives Past Medical History - General Information source: Patient - Social History Smoking Status: Unknown if Ever Smoked Family History: Arthritis, CVA, DM, Hyperlipidemia, Hypertension, Malignancy, Thyroid Disfunction. denies: CAD, COPD - Past Medical History Cardiac Medical History: Reports: Hx Hypertension Pulmonary Medical History: Reports: Hx Bronchitis Neurological Medical History: Reports: Hx Migraine Renal/ Medical History: Reports: Hx Kidney Stones, Hx Ovarian Cysts. Denies: Hx Peritoneal Dialysis Musculoskeletal Medical History: Reports Hx Musculoskeletal Deformity, Reports Hx Musculoskeletal Trauma Skin Medical History: Reports Hx Cellulitis Traumatic Medical History: Reports: Hx Fractures - Pelvis and L4, Hx Spine Fracture Past Surgical History: Reports: Hx Adenoidectomy, Hx Breast Surgery - Cysts, Hx Section - x1, Hx Cholecystectomy, Hx Kidney (Renal Surgery) - stent, Hx Orthopedic Surgery - Rods and left hip, Hx Tonsillectomy, Hx Tubal Ligation, Hx Urinary Tract Surgery - kidney stent - Immunizations Immunizations up to date: Yes Hx Diphtheria, Pertussis, Tetanus Vaccination: Yes - 2009 Review of Systems - Review of Systems Notes: REVIEW OF SYSTEMS: CONSTITUTIONAL : Denies recent illness. Denies recent unintentional weight loss. Denies fever, chills, or sweats. EENT: Denies eye, ear, throat, or mouth pain, discharge, or symptoms. Denies nasal or sinus congestion. CARDIOVASCULAR: Denies chest pain. RESPIRATORY: Denies shortness of breath, cough, congestion, difficulty breathing, or wheezing. GASTROINTESTINAL: Denies nausea, vomiting, and diarrhea. Denies abdominal pain. Denies constipation. GENITOURINARY: Denies difficulty urinating, burning, blood in urine, urgency or frequency. MUSCULOSKELETAL: See HPI. SKIN: Denies rash, itchiness, or lesions HEMATOLOGIC : Denies easy bruising or bleeding. LYMPHATIC: Denies swollen, painful, enlarged glands. NEUROLOGICAL: Denies no numbness or tingling denies weakness. Denies headache. Denies altered mental status. Denies alteration in speech. PSYCHIATRIC: Denies stress, anxiety, alteration in sleep patterns, or depression. All other systems reviewed and negative. Physical Exam - Vital signs Vitals: Temp Pulse Resp BP Pulse Ox 98.8 F 103 H 16 114/81 99 02/11/20 17:18 02/11/20 17:18 02/11/20 17:18 02/11/20 17:18 02/11/20 17:18 - Notes Notes: PHYSICAL EXAMINATION: GENERAL: Appears well, healthy, well-nourished, no acute distress. HEAD: Normocephalic, atraumatic. EYES: PERRL, conjunctiva normal, all extraocular movements intact, sclera nonicteric ENT: Moist mucous membranes. NECK: Supple, no noticeable swelling, redness, rash. Normal range of motion. LUNGS: Equal breath sounds bilaterally and clear to auscultation. No wheezes rales or rhonchi. CARDIOVASCULAR: S1-S2, regular rate, regular rhythm. Radial pulses 2+, normal. ABDOMEN: Normoactive bowel sounds. Soft, nontender, no guarding, no rebound tenderness, and no masses palpated. EXTREMITIES: Tenderness noted to right anterior knee. No cyanosis. NEUROLOGICAL: Moves all extremities upon command. Strength 5/5 in all extremities. PSYCH: Normal mood, normal affect. SKIN: Warm, dry. No rash, lesions, ulcerations noted. Normal skin turgor. BACK: Tenderness noted to paraspinal muscles in thoracic back. Course - Re-evaluation Re-evalutation: 02/11/20 21:01 Labs ordered in triage are unremarkable. X-rays are also unremarkable. Patient has tenderness to paraspinal muscles and back. Tenderness noted to the patella with a small abrasion. Patient will be given an [place] wrap, crutches, knee immobilizer. Patient is to follow-up with orthopedics as needed. Is in agreement with this plan. Capillary refill less than 3 seconds. Dorsalis pedis and posterior tibial pulses 2+. No vascular compromise noted. Follow-up precautions were given. Verbal discharge instructions were given to the patient . They verbalized understanding. They are stable for discharge. - Vital Signs Vital signs: Temp Pulse Resp BP Pulse Ox 98.8 F 103 H 16 114/81 99 02/11/20 17:18 02/11/20 17:18 02/11/20 17:18 02/11/20 17:18 02/11/20 17:18 - Laboratory Result Diagrams: 02/11/20 18:16 02/11/20 18:16 Laboratory results interpreted by me: 02/11/20 02/11/20 02/11/20 18:16 18:16 18:16 WBC 10.9 H MCHC 36.2 H RDW 15.4 H Absolute Lymphs (auto) 4.8 H Chloride 111 H Alkaline Phosphatase 184 H Urine Protein 30 H Urine Urobilinogen 2.0 H Ur Leukocyte Esterase TRACE H Discharge - Discharge Clinical Impression: Fall Qualifiers: Encounter type: initial encounter Qualified Code(s): W19.XXXA - Unspecified fall, initial encounter Right knee pain Qualifiers: Chronicity: acute Qualified Code(s): M25.561 - Pain in right knee Condition: Stable Disposition: HOME, SELF-CARE Instructions: Use of Crutches ([facility]), Knee Immobilizing Splint ([facility]), [place] Wrap ([facility]) Additional Instructions: You were seen today in the emergency department after a fall. Your knee x-ray and back x-ray are normal. Take the Toradol as needed for pain. Also add acetaminophen 1000 mg every 6 hours. Do not take ibuprofen while on Toradol. Follow-up with orthopedics if needed. Rest, apply ice, and elevate your leg. Prescriptions: Ketorolac Tromethamine [Toradol 10 mg Tablet] 10 mg PO Q6HP PRN #20 tablet PRN Reason: Forms: Return to Work Referrals: DEE GRAY MD [NO LOCAL MD] - Follow up as needed DARI STERN MD [ACTIVE STAFF] - Follow up as needed
[2020-02-11] MEDS ORDERED: HYDROCODONE/ACETAMINOPHEN 5-325 MG (6 TAB/ER DISP) PO PRN (21:54)
== END 2020-02-11 21:59 | disposition home or self-care (01) ==
LOC: ER 17:10
DX: S80.211A Abrasion, right knee, initial encounter (principal); M54.6 Pain in thoracic spine; W01.0XXA Fall on same level from slipping, tripping and stumbling without subsequent striking against object, initial encounter; Z88.2 Allergy status to sulfonamides; I10 Essential (primary) hypertension
CPT/HCPCS: 99285; 96372; 36415; 84703; 85025; 80053; 81001; 73564; 72070; J1885; S0119

== ENCOUNTER 2020-02-20 20:52 | Emergency (ER) | payer SELFPAY ==
[2020-02-20] MEDS ORDERED: HYDROCODONE/ACETAMINOPHEN 5-325 MG TABLET PO ONE (21:22)
[2020-02-20] MEDS ORDERED: ONDANSETRON 4 MG TAB.RAPDIS PO ONE (21:22)
--- NOTE | 2020-02-20 21:25 | ER Document Report ---
ED Medical Screen (RME) - General Chief Complaint: Flank Pain Stated Complaint: FLANK PAIN Time Seen by Provider: 02/20/20 21:19 Mode of Arrival: Ambulatory Information source: Patient Notes: HPI; 34-year-old female presents to the emergency room with sudden onset of left flank pain that started earlier tonight. Complains of urinary frequency for the past 3 days. History of kidney stones. Complains of nausea but no vomiting. States she took a Toradol about 4 hours ago without relief. She denies any chance of . PE: Alert and oriented x3. Lungs: Clear to auscultation without rales, rhonchi, wheezes. Heart tachycardic without murmurs, rubs, gallops. Positive for left CVA tenderness. I have greeted and performed a rapid initial assessment of this patient. A comprehensive ED assessment and evaluation of the patient, analysis of test results and completion of the medical decision making process will be conducted by additional ED providers. I have specifically instructed the patient or family members with the patient to immediately return to any nursing staff should anything change in the patient's condition or with their chief complaint. TRAVEL OUTSIDE OF THE [place] IN LAST 30 DAYS: No - Related Data Allergies/Adverse Reactions: Sulfa (Sulfonamide Antibiotics) Allergy (Verified 02/20/20 21:21) Hives Past Medical History - Social History Frequency of alcohol use: None Drug Abuse: None - Past Medical History Cardiac Medical History: Reports: Hx Hypertension Pulmonary Medical History: Reports: Hx Bronchitis Neurological Medical History: Reports: Hx Migraine Renal/ Medical History: Reports: Hx Kidney Stones, Hx Ovarian Cysts. Denies: Hx Peritoneal Dialysis Musculoskeltal Medical History: Reports Hx Musculoskeletal Deformity, Reports Hx Musculoskeletal Trauma Skin Medical History: Reports Hx Cellulitis Traumatic Medical History: Reports: Hx Fractures - Pelvis and L4, Hx Spine Fracture Past Surgical History: Reports: Hx Adenoidectomy, Hx Breast Surgery - Cysts, Hx Section - x1, Hx Cholecystectomy, Hx Kidney (Renal Surgery) - stent, Hx Orthopedic Surgery - Rods and left hip, Hx Tonsillectomy, Hx Tubal Ligation, Hx Urinary Tract Surgery - kidney stent - Immunizations Immunizations up to date: Yes Hx Diphtheria, Pertussis, Tetanus Vaccination: Yes - 2009 Physical Exam - Vital signs Vitals: Temp Pulse Resp BP Pulse Ox 98.7 F 103 H 16 131/87 H 95 02/20/20 21:19 02/20/20 21:19 02/20/20 21:19 02/20/20 21:19 02/20/20 21:19 Course - Vital Signs Vital signs: Temp Pulse Resp BP Pulse Ox 98.7 F 103 H 16 131/87 H 95 02/20/20 21:19 02/20/20 21:19 02/20/20 21:19 02/20/20 21:19 02/20/20 21:19
[2020-02-20 22:19] LABS: ABSOLUTE BASOPHILS # (AUTO) 0.1 10^3/uL (0.0-0.2); ABSOLUTE EOSINOPHILS # (AUTO) 0.1 10^3/uL (0.0-0.6); ABSOLUTE MONOCYTES (AUTO) 0.8 10^3/uL (0.1-1.4); ABSOLUTE NEUT (AUTO) 8.8 10^3/uL (1.7-8.2); BASOPHILS % (AUTO) 0.5 % (0-2); EOSINOPHILS % (AUTO) 0.6 % (0-6); HEMATOCRIT 39.3 % (36.0-47.0); HEMOGLOBIN 13.7 g/dL (12.0-15.5); MEAN CORPUSCULAR HEMOGLOBIN 30.2 pg (27.0-33.4); MEAN CORPUSCULAR HGB CONC 34.8 g/dL (32.0-36.0); MEAN CORPUSCULAR VOLUME 87 fl (80-97); MONOCYTES % (AUTO) 5.3 % (3-13); PLATELET COUNT 476 10^3/uL (150-450); RED BLOOD COUNT 4.54 10^6/uL (3.72-5.28); RED CELL DISTRIBUTION WIDTH 15.3 % (11.5-14.0); SEGMENTED NEUTROPHILS % (AUTO) 59.6 % (42-78); TOTAL CELLS COUNTED % (AUTO) 100 %; WHITE BLOOD COUNT 14.7 10^3/uL (4.0-10.5)
[2020-02-20 22:25] LABS: APPEARANCE,URINE CLOUDY; BILIRUBIN,URINE NEGATIVE (NEGATIVE); COLOR,URINE YELLOW; GLUCOSE, URINE NEGATIVE (NEGATIVE); KETONES,URINE NEGATIVE (NEGATIVE); LEUKOCYTE ESTERASE,URINE NEGATIVE (NEGATIVE); NITRITE,URINE NEGATIVE (NEGATIVE); PROTEIN,URINE 30 mg/dL (NEGATIVE); UROBILINOGEN,URINE NEGATIVE mg/dL (<2.0)
[2020-02-20 22:35] LABS: ALBUMIN 4.1 g/dL (3.5-5.0); ALKALINE PHOSPHATASE 112 U/L (38-126); ANION GAP 11 (5-19); ASPARTATE AMINO TRANSFERASE 15 U/L (14-36); BILIRUBIN,DIRECT 0.2 mg/dL (0.0-0.4); BILIRUBIN,TOTAL 0.4 mg/dL (0.2-1.3); BLOOD UREA NITROGEN 12 mg/dL (7-20); CALCIUM 9.6 mg/dL (8.4-10.2); CARBON DIOXIDE 21 mmol/L (22-30); CHLORIDE 108 mmol/L (98-107); GLUCOSE 87 mg/dL (75-110); POTASSIUM 3.8 mmol/L (3.6-5.0); TOTAL PROTEIN 7.2 g/dL (6.3-8.2)
--- NOTE | 2020-02-21 04:03 | RADIOLOGY REPORT (SQ) ---
CLINICAL HISTORY: LEFT flank pain. HCG NEG COMPARISON: 12/13/2019. TECHNIQUE: CT ABDOMEN PELVIS WITHOUT IV CONTRAST on 02/20/2020 9:23 PM CDT This exam was performed according to our departmental dose-optimization program, which includes automated exposure control, adjustment of the mA and/or kV according to patient size and/or use of iterative reconstruction technique. FINDINGS: Lower lungs are clear. Abdomen: The liver is normal in appearance. There is no biliary dilatation. Cholecystectomy was performed. The pancreas and spleen are normal in appearance. There are at least four left renal calculi and at least four right renal calculi measuring up to 4 mm. Abdominal aorta is normal in course and caliber without aneurysm. There is no free air. There is no retroperitoneal adenopathy. Pelvis: There is no bowel obstruction. Urinary bladder is unremarkable. There is small amount of free pelvic fluid. Uterus is normal in size. Appendix is normal. Skeleton: There are no acute osseous findings. No suspicious bony lesions. IMPRESSION: Bilateral nephrolithiasis without hydronephrosis.
[2020-02-21] MEDS ORDERED: OXYCODONE-ACETAMINOPHEN 5-325 MG TABLET PO ONE (08:47)
--- NOTE | 2020-02-21 08:48 | ER Document Report ---
ED GI/ - General Chief Complaint: Flank Pain Stated Complaint: FLANK PAIN Time Seen by Provider: 02/20/20 21:19 Mode of Arrival: Ambulatory Notes: HPI; 34-year-old female presents to the emergency room with sudden onset of left flank pain that started earlier tonight. Complains of urinary frequency for the past 3 days. History of kidney stones. Complains of nausea but no vomiting. States she took a Toradol about 4 hours ago without relief. She denies any chance of . TRAVEL OUTSIDE OF THE [place] IN LAST 30 DAYS: No - Related Data Allergies/Adverse Reactions: Sulfa (Sulfonamide Antibiotics) Allergy (Verified 02/20/20 21:21) Hives Past Medical History - General Information source: Patient - Social History Smoking Status: Current Every Day Smoker Frequency of alcohol use: None Drug Abuse: None Family History: Arthritis, CVA, DM, Hyperlipidemia, Hypertension, Malignancy, Thyroid Disfunction. denies: CAD, COPD - Past Medical History Cardiac Medical History: Reports: Hx Hypertension Pulmonary Medical History: Reports: Hx Bronchitis Neurological Medical History: Reports: Hx Migraine Renal/ Medical History: Reports: Hx Kidney Stones, Hx Ovarian Cysts. Denies: Hx Peritoneal Dialysis Musculoskeletal Medical History: Reports Hx Musculoskeletal Deformity, Reports Hx Musculoskeletal Trauma Skin Medical History: Reports Hx Cellulitis Traumatic Medical History: Reports: Hx Fractures - Pelvis and L4, Hx Spine Fracture Past Surgical History: Reports: Hx Adenoidectomy, Hx Breast Surgery - Cysts, Hx Section - x1, Hx Cholecystectomy, Hx Kidney (Renal Surgery) - stent, Hx Orthopedic Surgery - Rods and left hip, Hx Tonsillectomy, Hx Tubal Ligation, Hx Urinary Tract Surgery - kidney stent - Immunizations Immunizations up to date: Yes Hx Diphtheria, Pertussis, Tetanus Vaccination: Yes - 2009 Review of Systems - Review of Systems Constitutional: denies: Fever Genitourinary: Flank pain -: Yes All other systems reviewed and negative Physical Exam - Vital signs Vitals: Temp Pulse Resp BP Pulse Ox 98.7 F 103 H 16 131/87 H 95 02/20/20 21:19 02/20/20 21:19 02/20/20 21:19 02/20/20 21:19 02/20/20 21:19 - Notes Notes: PHYSICAL EXAMINATION: GENERAL: Well-appearing, well-nourished and in no acute distress. HEAD: Atraumatic, normocephalic. EYES: Pupils equal round and reactive to light, extraocular movements intact, conjunctiva are normal. ENT: Nares patent, oropharynx clear without exudates. Moist mucous membranes. NECK: Normal range of motion, supple without lymphadenopathy LUNGS: Breath sounds clear to auscultation bilaterally and equal. No wheezes rales or rhonchi. HEART: Regular rate and rhythm without murmurs ABDOMEN: Soft, nontender, nondistended abdomen. No guarding, no rebound. No masses appreciated. Female : No CVA tenderness. Musculoskeletal: Normal range of motion, no pitting or edema. No cyanosis. NEUROLOGICAL: Cranial nerves grossly intact. Normal speech, normal gait. Normal sensory, motor exams PSYCH: Normal mood, normal affect. SKIN: Warm, Dry, normal turgor, no rashes or lesions noted. Course - Re-evaluation Re-evalutation: = Laboratory 02/20/20 02/20/20 02/20/20 22:05 22:05 22:05 WBC 14.7 H RBC 4.54 Hgb 13.7 Hct 39.3 MCV 87 MCH 30.2 MCHC 34.8 RDW 15.3 H Plt Count 476 H Lymph % (Auto) 34.0 [place] % (Auto) 5.3 Eos % (Auto) 0.6 Baso % (Auto) 0.5 Absolute Neuts (auto) 8.8 H Absolute Lymphs (auto) 5.0 H Absolute Monos (auto) 0.8 Absolute Eos (auto) 0.1 Absolute Basos (auto) 0.1 Seg Neutrophils % 59.6 Sodium 139.9 Potassium 3.8 Chloride 108 H Carbon Dioxide 21 L Anion Gap 11 BUN 12 Creatinine 0.60 Est GFR ( Amer) > 60 Est GFR (MDRD) Non-Af > 60 Glucose 87 Calcium 9.6 Total Bilirubin 0.4 Direct Bilirubin 0.2 Neonat Total Bilirubin Not Reportable Neonat Direct Bilirubin Not Reportable Neonat Indirect Bili Not Reportable AST 15 ALT 8 Alkaline Phosphatase 112 Total Protein 7.2 Albumin 4.1 Urine Color YELLOW Urine Appearance CLOUDY Urine pH 5.0 Ur Specific [place] 1.020 Urine Protein 30 H Urine Glucose (UA) NEGATIVE Urine Ketones NEGATIVE Urine Blood NEGATIVE Urine Nitrite NEGATIVE Urine Bilirubin NEGATIVE Urine Urobilinogen NEGATIVE Ur Leukocyte Esterase NEGATIVE Urine WBC (Auto) 4 Urine RBC (Auto) 0 Urine Bacteria (Auto) TRACE Squamous Epi Cells Auto 15 Urine Mucus (Auto) MANY Urine Ascorbic Acid NEGATIVE Urine HCG, Qual NEGATIVE Abdomen/Pelvis CT 02/20/20 21:23 IMPRESSION: Bilateral nephrolithiasis without hydronephrosis. Patient's work-up today has been reassuring. She does have bilateral neph rolithiasis but no hydronephrosis or hydroureter. She may have recently passed a small stone but there is no acute kidney stone at this time. All test results were discussed with patient. I apologize for her wait time. Patient verbalized understanding. She was prescribed a short course of pain medication as she states she usually has pain for 2 to 3 days after passing a kidney stone. She also reports she typically has no blood in her urine after she passes a small stone. She was encouraged to follow-up with the [facility] so that she can be referred to a urologist as she does not have one due to lack of insurance. ED return precautions discussed, patient verbalized understanding and agreement with same. - Vital Signs Vital signs: Temp Pulse Resp BP Pulse Ox 98.1 F 94 16 125/88 H 100 02/21/20 09:01 02/21/20 09:01 02/21/20 09:01 02/21/20 09:01 02/21/20 09:01 - Laboratory Result Diagrams: 02/20/20 22:05 02/20/20 22:05 Laboratory results interpreted by me: 02/20/20 02/20/20 02/20/20 22:05 22:05 22:05 WBC 14.7 H RDW 15.3 H Plt Count 476 H Absolute Neuts (auto) 8.8 H Absolute Lymphs (auto) 5.0 H Chloride 108 H Carbon Dioxide 21 L Urine Protein 30 H Discharge - Discharge Clinical Impression: Kidney stone Condition: Stable Disposition: HOME, SELF-CARE Additional Instructions: You have several stones in both of your kidneys, I do not see one passing through the ureter or the bladder at this time. It is possible that you have already passed this prior to coming in. Please take ibuprofen 600 mg every 6 hours this will help reduce the inflammation on the kidney. If you still have Toradol you can take that instead of the ibuprofen but do not take them together. Use the narcotic pain medicine for severe pain only. Take 1/2 to 1 tablet every 6 hours. Please follow-up with [facility] as they have a multitude of resources that may be helpful to you. Forms: Treatment of Relative/Child
[2020-02-21] MEDS ORDERED: HYDROCODONE/ACETAMINOPHEN 5-325 MG (6 TAB/ER DISP) PO PRN (09:01)
[2020-02-21 09:02] VITALS: BP 125/88
== END 2020-02-21 09:11 | disposition home or self-care (01) ==
LOC: ER 20:52
DX: N20.0 Calculus of kidney (principal); R10.9 Unspecified abdominal pain; R35.0 Frequency of micturition; R11.0 Nausea; F17.200 Nicotine dependence, unspecified, uncomplicated; I10 Essential (primary) hypertension; Z87.442 Personal history of urinary calculi; Z88.2 Allergy status to sulfonamides
CPT/HCPCS: 99284; 36415; 85025; 81025; 80053; 81001; 74176; S0119

== ENCOUNTER 2020-02-23 20:49 | Emergency (ER) | payer SELFPAY ==
[2020-02-23] MEDS ORDERED: KETOROLAC TROMETHAMINE INJ/PF 30 MG/1 ML SDV IV ONE (22:33)
[2020-02-23] MEDS ORDERED: NORMAL SALINE 1000 ML 1,000 ML IV ONE (22:34)
--- NOTE | 2020-02-23 22:36 | ER Document Report ---
ED Medical Screen (RME) - General Chief Complaint: Possible Kidney Stone Stated Complaint: NAUSEA/VOMITING/POSSIBLE KIDNEY STONE Time Seen by Provider: 02/23/20 21:33 Notes: Patient is a 34-year-old female presents emergency department with the chief complaint of bilateral flank pain. Patient was diagnosed with kidney stones 3 days ago. Patient states that she still continues to have pain. Exam: Bilateral CVA tenderness. I have greeted and performed a rapid initial assessment of this patient. A comprehensive ED assessment and evaluation of the patient, analysis of test results and completion of medical decision making process will be conducted by an additional ED providers. TRAVEL OUTSIDE OF THE [place] IN LAST 30 DAYS: No - Related Data Allergies/Adverse Reactions: Sulfa (Sulfonamide Antibiotics) Allergy (Verified 02/23/20 21:24) Hives Home Medications: TORADOL Past Medical History - Social History Frequency of alcohol use: None Drug Abuse: None - Past Medical History Cardiac Medical History: Reports: Hx Hypertension Pulmonary Medical History: Reports: Hx Bronchitis Neurological Medical History: Reports: Hx Migraine Renal/ Medical History: Reports: Hx Kidney Stones, Hx Ovarian Cysts. Denies: Hx Peritoneal Dialysis Musculoskeltal Medical History: Reports Hx Musculoskeletal Deformity, Reports Hx Musculoskeletal Trauma Skin Medical History: Reports Hx Cellulitis Traumatic Medical History: Reports: Hx Fractures - Pelvis and L4, Hx Spine Fract ure Past Surgical History: Reports: Hx Adenoidectomy, Hx Breast Surgery - Cysts, Hx Section - x1, Hx Cholecystectomy, Hx Kidney (Renal Surgery) - stent, Hx Orthopedic Surgery - Rods and left hip, Hx Tonsillectomy, Hx Tubal Ligation, Hx Urinary Tract Surgery - kidney stent - Immunizations Immunizations up to date: Yes Hx Diphtheria, Pertussis, Tetanus Vaccination: Yes - 2009 Physical Exam - Vital signs Vitals: Temp Pulse Resp BP Pulse Ox 99.3 F 116 H 18 116/84 99 02/23/20 20:54 02/23/20 20:54 02/23/20 20:54 02/23/20 20:54 02/23/20 20:54 Course - Vital Signs Vital signs: Temp Pulse Resp BP Pulse Ox 99.3 F 116 H 18 116/84 99 02/23/20 20:54 02/23/20 20:54 02/23/20 20:54 02/23/20 20:54 02/23/20 20:54
[2020-02-23] MEDS ORDERED: HYDROCODONE/ACETAMINOPHEN 5-325 MG TABLET PO ONE (22:42)
[2020-02-23 23:35] LABS: ABSOLUTE BASOPHILS # (AUTO) 0.1 10^3/uL (0.0-0.2); ABSOLUTE EOSINOPHILS # (AUTO) 0.1 10^3/uL (0.0-0.6); ABSOLUTE LYMPHOCYTES (AUTO) 4.6 10^3/uL (0.5-4.7); ABSOLUTE MONOCYTES (AUTO) 0.7 10^3/uL (0.1-1.4); ABSOLUTE NEUT (AUTO) 9.8 10^3/uL (1.7-8.2); BASOPHILS % (AUTO) 0.8 % (0-2); EOSINOPHILS % (AUTO) 0.9 % (0-6); HEMATOCRIT 40.3 % (36.0-47.0); HEMOGLOBIN 14.2 g/dL (12.0-15.5); LYMPHOCYTES % (AUTO) 30.1 % (13-45); MEAN CORPUSCULAR HEMOGLOBIN 30.9 pg (27.0-33.4); MEAN CORPUSCULAR HGB CONC 35.2 g/dL (32.0-36.0); MEAN CORPUSCULAR VOLUME 88 fl (80-97); MONOCYTES % (AUTO) 4.8 % (3-13); PLATELET COUNT 433 10^3/uL (150-450); RED CELL DISTRIBUTION WIDTH 15.5 % (11.5-14.0); SEGMENTED NEUTROPHILS % (AUTO) 63.4 % (42-78); TOTAL CELLS COUNTED % (AUTO) 100 %; WHITE BLOOD COUNT 15.4 10^3/uL (4.0-10.5)
--- NOTE | 2020-02-23 23:38 | RADIOLOGY REPORT (SQ) ---
CLINICAL HISTORY: flank pain COMPARISON: None. TECHNIQUE: US RETROPERITONEUM LIMITED 02/23/2020 10:35 PM CDT FINDINGS: Right kidney measures 11.6 cm and left kidney measures 11.5 cm. There are scattered minimal 1 to 2 mm bilateral renal calculi. There is no hydronephrosis. IMPRESSION: Minimal bilateral nephrolithiasis without hydronephrosis.
[2020-02-23 23:40] LABS: APPEARANCE,URINE SLIGHTLY-CLOUDY; BILIRUBIN,URINE NEGATIVE (NEGATIVE); COLOR,URINE YELLOW; GLUCOSE, URINE NEGATIVE (NEGATIVE); KETONES,URINE NEGATIVE (NEGATIVE); PROTEIN,URINE NEGATIVE (NEGATIVE); URINE SPECIFIC GRAVITY 1.021; UROBILINOGEN,URINE NEGATIVE mg/dL (<2.0)
[2020-02-23 23:49] LABS: ALBUMIN 4.2 g/dL (3.5-5.0); ALKALINE PHOSPHATASE 114 U/L (38-126); ANION GAP 9 (5-19); ASPARTATE AMINO TRANSFERASE 15 U/L (14-36); BILIRUBIN,DIRECT 0.3 mg/dL (0.0-0.4); BILIRUBIN,TOTAL 0.3 mg/dL (0.2-1.3); BLOOD UREA NITROGEN 13 mg/dL (7-20); CALCIUM 9.5 mg/dL (8.4-10.2); CARBON DIOXIDE 22 mmol/L (22-30); CHLORIDE 108 mmol/L (98-107); GLUCOSE 86 mg/dL (75-110); TOTAL PROTEIN 7.6 g/dL (6.3-8.2)
[2020-02-24] MEDS ORDERED: HYDROCODONE/ACETAMINOPHEN 5-325 MG TABLET PO ONE (02:30)
--- NOTE | 2020-02-24 02:39 | ER Document Report ---
ED General - General Chief Complaint: Possible Kidney Stone Stated Complaint: NAUSEA/VOMITING/POSSIBLE KIDNEY STONE Time Seen by Provider: 02/23/20 21:33 TRAVEL OUTSIDE OF THE [place] IN LAST 30 DAYS: No - HPI Notes: Patient is a 34-year-old female the history of kidney stones as well as amanda in her lower back presents to the emergency department for evaluation of low back pain. Is been going on for several days. She states she is been seen in the past, was told was from kidney stones. She has had some urinary frequency. No fevers or chills. Some nausea but no vomiting. She states that she has not seen any gross hematuria or dysuria. She has been trying to follow-up with [facility], states she is having some difficulty getting in touch. She states she took some Toradol that was prescribed her recently, but it is "rough on my stomach." She denies any radiation of the pain into her left lower extremity. No bowel or bladder incontinence, no saddle anesthesia, no focal numbness or weakness. - Related Data Allergies/Adverse Reactions: Sulfa (Sulfonamide Antibiotics) Allergy (Verified 02/23/20 21:24) Hives Home Medications: TORADOL Past Medical History - General Information source: Patient - Social History Smoking Status: Current Every Day Smoker Frequency of alcohol use: None Drug Abuse: None Family History: Arthritis, CVA, DM, Hyperlipidemia, Hypertension, Malignancy, Thyroid Disfunction. denies: CAD, COPD Patient has homicidal ideation: No - Past Medical History Cardiac Medical History: Reports: Hx Hypertension Pulmonary Medical History: Reports: Hx Bronchitis Neurological Medical History: Reports: Hx Migraine Renal/ Medical History: Reports: Hx Kidney Stones, Hx Ovarian Cysts. Denies: Hx Peritoneal Dialysis Musculoskeletal Medical History: Reports Hx Musculoskeletal Deformity, Reports Hx Musculoskeletal Trauma Skin Medical History: Reports Hx Cellulitis Traumatic Medical History: Reports: Hx Fractures - Pelvis and L4, Hx Spine Fracture Past Surgical History: Reports: Hx Adenoidectomy, Hx Breast Surgery - Cysts, Hx Section - x1, Hx Cholecystectomy, Hx Kidney (Renal Surgery) - stent, Hx Orthopedic Surgery - Rods and left hip, Hx Tonsillectomy, Hx Tubal Ligation, Hx Urinary Tract Surgery - kidney stent - Immunizations Immunizations up to date: Yes Hx Diphtheria, Pertussis, Tetanus Vaccination: Yes - 2009 Review of Systems - Review of Systems Constitutional: No symptoms reported EENT: No symptoms reported Cardiovascular: No symptoms reported Respiratory: No symptoms reported Gastrointestinal: See HPI Genitourinary: See HPI Musculoskeletal: See HPI Skin: No symptoms reported Neurological/Psychological: No symptoms reported Physical Exam - Vital signs Vitals: Temp Pulse Resp BP Pulse Ox 99.3 F 116 H 18 116/84 99 02/23/20 20:54 02/23/20 20:54 02/23/20 20:54 02/23/20 20:54 02/23/20 20:54 - Notes Notes: Vital signs reviewed, please refer to chart. Head is normocephalic, atraumatic. Pupils equal round, reactive to light. Neck is supple without meningismus. Heart is regular rate and rhythm. Lungs are clear to auscultation bilaterally. Abdomen is soft, nontender, normoactive bowel sounds throughout. Examination of the spine shows no midline tenderness or step-off. She has paraspinal musculature tenderness throughout the left lumbar spine with associated spasm. Negative straight leg raise bilaterally. Patellar and Achilles reflexes are symmetrical, mildly diminished. Sensation is intact. Extremities without cyanosis, clubbing. Posterior calves are nontender. Peripheral pulses are equal. Skin is warm and dry. Patient is awake, alert, neurological exam is nonfocal. Course - Re-evaluation Re-evalutation: 02/24/20 02:36 Patient presents to the emergency department for evaluation. Laboratory investigations were obtained and ordered through triage. Patient has had multiple bouts of kidney stones. She had an ultrasound today which showed renal stones but no evidence of hydronephrosis. Her urinalysis failed to show any signs of blood. She had a normal CT that was performed recently. I suspect this is more musculoskeletal. She is given a [place] here. She was already given Toradol. I will send her home with muscle relaxers. I encouraged her to follow-up closely with [facility]. She is to return to the emergency department worsening or new concerning symptoms of any sort. - Vital Signs Vital signs: Temp Pulse Resp BP Pulse Ox 98.8 F 91 18 127/90 H 98 02/24/20 02:58 02/24/20 02:58 02/24/20 02:58 02/24/20 02:58 02/24/20 02:58 - Laboratory Result Diagrams: 02/23/20 23:21 02/23/20 23:21 Laboratory results interpreted by me: 10/15/20 10/15/20 23:21 23:21 WBC 15.4 H RDW 15.5 H Absolute Neuts (auto) 9.8 H Chloride 108 H - Diagnostic Test Radiology reviewed: Reports reviewed Radiology results interpreted by me: 02/24/20 02:37 Renal Ultrasound 02/23/20 22:35 IMPRESSION: Minimal bilateral nephrolithiasis without hydronephrosis. Discharge - Discharge Clinical Impression: Left flank pain Condition: Stable Disposition: HOME, SELF-CARE Instructions: Flank Pain ([facility]) Additional Instructions: Moist heat to the painful area. Take Flexeril as directed, please watch for drowsiness with this medication. Follow-up with [facility] this week. Return to the emergency department worsening or new concerning symptoms of any sort. Prescriptions: Cyclobenzaprine HCl [Flexeril 10 mg Tablet] 10 mg PO TIDP PRN #15 tab PRN Reason:
[2020-02-24 02:59] VITALS: BP 127/90
== END 2020-02-24 03:04 | disposition home or self-care (01) ==
LOC: ER 20:49
DX: R11.2 Nausea with vomiting, unspecified (principal); N20.0 Calculus of kidney; M54.5 Low back pain; F17.200 Nicotine dependence, unspecified, uncomplicated; I10 Essential (primary) hypertension; Z87.442 Personal history of urinary calculi; Z90.49 Acquired absence of other specified parts of digestive tract
CPT/HCPCS: 36415; 76775; 80053; 81001; 85025; 99285

== ENCOUNTER 2020-02-29 20:51 | Emergency (ER) | payer SELFPAY ==
--- NOTE | 2020-02-29 21:57 | ER Document Report ---
ED Medical Screen (RME) - General Chief Complaint: Diarrhea Stated Complaint: POSS HEMORRHOID/BLEEDING Time Seen by Provider: 02/29/20 21:47 TRAVEL OUTSIDE OF THE [place] IN LAST 30 DAYS: No - HPI Notes: 02/29/20 21:54 34-year-old female to the emergency department with complaints of periumbilical abdominal pain, dark stool, bleeding hemorrhoids that have gotten worse since last week. She states she was seen in the emergency department for a kidney stone about a week and a half ago. She states she was put on Toradol. She states that the Toradol was making her stomach upset so she went to an urgent care and got placed on Arthrotec instead. She states that after she started taking this medicine she started to notice dark black stools and increasing abdominal pain. She denies any fevers or chills. Denies any cough, loss of taste or smell. She denies any urinary symptoms. I performed a brief medical screening exam on the patient determined that the patient needs further evaluation and management by main side provider. I have placed initial orders to help expedite care. HR 137. - Related Data Allergies/Adverse Reactions: Sulfa (Sulfonamide Antibiotics) Allergy (Verified 02/23/20 21:24) Hives Home Medications: Lisinopril Past Medical History - Social History Frequency of alcohol use: None Drug Abuse: None - Past Medical History Cardiac Medical History: Reports: Hx Hypertension Pulmonary Medical History: Reports: Hx Bronchitis Neurological Medical History: Reports: Hx Migraine Renal/ Medical History: Reports: Hx Kidney Stones, Hx Ovarian Cysts. Denies: Hx Peritoneal Dialysis Musculoskeltal Medical History: Reports Hx Musculoskeletal Deformity, Reports Hx Musculoskeletal Trauma Skin Medical History: Reports Hx Cellulitis Traumatic Medical History: Reports: Hx Fractures - Pelvis and L4, Hx Spine Fracture Past Surgical History: Reports: Hx Adenoidectomy, Hx Breast Surgery - Cysts, Hx Section - x1, Hx Cholecystectomy, Hx Kidney (Renal Surgery) - stent, Hx Orthopedic Surgery - Rods and left hip, Hx Tonsillectomy, Hx Tubal Ligation, Hx Urinary Tract Surgery - kidney stent - Immunizations Immunizations up to date: Yes Hx Diphtheria, Pertussis, Tetanus Vaccination: Yes - 2009 Physical Exam - Vital signs Vitals: Temp Pulse Resp BP Pulse Ox 98.9 F 137 H 18 141/98 H 99 02/29/20 21:06 02/29/20 21:06 02/29/20 21:06 02/29/20 21:06 02/29/20 21:06 Course - Vital Signs Vital signs: Temp Pulse Resp BP Pulse Ox 98.9 F 129 H 18 141/98 H 99 02/29/20 21:06 02/29/20 21:50 02/29/20 21:06 02/29/20 21:06 02/29/20 21:06
[2020-02-29 22:48] LABS: ABSOLUTE BASOPHILS # (AUTO) 0.1 10^3/uL (0.0-0.2); ABSOLUTE EOSINOPHILS # (AUTO) 0.1 10^3/uL (0.0-0.6); ABSOLUTE LYMPHOCYTES (AUTO) 4.7 10^3/uL (0.5-4.7); ABSOLUTE MONOCYTES (AUTO) 0.6 10^3/uL (0.1-1.4); ABSOLUTE NEUT (AUTO) 7.1 10^3/uL (1.7-8.2); BASOPHILS % (AUTO) 0.7 % (0-2); EOSINOPHILS % (AUTO) 0.9 % (0-6); HEMATOCRIT 42.2 % (36.0-47.0); HEMOGLOBIN 14.6 g/dL (12.0-15.5); LYMPHOCYTES % (AUTO) 37.4 % (13-45); MEAN CORPUSCULAR HEMOGLOBIN 30.4 pg (27.0-33.4); MEAN CORPUSCULAR HGB CONC 34.7 g/dL (32.0-36.0); MEAN CORPUSCULAR VOLUME 88 fl (80-97); PLATELET COUNT 522 10^3/uL (150-450); RED BLOOD COUNT 4.82 10^6/uL (3.72-5.28); RED CELL DISTRIBUTION WIDTH 15.4 % (11.5-14.0); TOTAL CELLS COUNTED % (AUTO) 100 %; WHITE BLOOD COUNT 12.7 10^3/uL (4.0-10.5)
[2020-02-29 22:53] LABS: APPEARANCE,URINE CLOUDY; BILIRUBIN,URINE NEGATIVE (NEGATIVE); COLOR,URINE AMBER; GLUCOSE, URINE NEGATIVE (NEGATIVE); KETONES,URINE NEGATIVE (NEGATIVE); LEUKOCYTE ESTERASE,URINE TRACE (NEGATIVE); NITRITE,URINE NEGATIVE (NEGATIVE); PROTEIN,URINE 100 mg/dL (NEGATIVE); URINE SPECIFIC GRAVITY 1.018; UROBILINOGEN,URINE NEGATIVE mg/dL (<2.0)
[2020-02-29 23:08] LABS: ALBUMIN 4.4 g/dL (3.5-5.0); ALKALINE PHOSPHATASE 96 U/L (38-126); ANION GAP 12 (5-19); ASPARTATE AMINO TRANSFERASE 15 U/L (14-36); BILIRUBIN,DIRECT 0.3 mg/dL (0.0-0.4); BILIRUBIN,TOTAL 0.4 mg/dL (0.2-1.3); BLOOD UREA NITROGEN 8 mg/dL (7-20); CALCIUM 9.9 mg/dL (8.4-10.2); CARBON DIOXIDE 25 mmol/L (22-30); CHLORIDE 103 mmol/L (98-107); GLUCOSE 104 mg/dL (75-110); POTASSIUM 4.3 mmol/L (3.6-5.0); TOTAL PROTEIN 7.8 g/dL (6.3-8.2)
[2020-02-29] MEDS ORDERED: MORPHINE SULFATE 10 MG/ML INJ IV ONE ×2 (23:18→23:53)
[2020-02-29] MEDS ORDERED: NORMAL SALINE 1000 ML 1,000 ML IV ONE (23:53)
--- NOTE | 2020-03-01 01:36 | ER Document Report ---
ED General - General Chief Complaint: Diarrhea Stated Complaint: POSS HEMORRHOID/BLEEDING Time Seen by Provider: 02/29/20 21:47 TRAVEL OUTSIDE OF THE [place] IN LAST 30 DAYS: No - HPI Notes: 34-year-old female presents with painful hemorrhoids. Patient states that she recently had a bout of kidney stones, she was prescribed Toradol and then another medication from urgent care, she states that she has had several days of diarrhea which have irritated her hemorrhoids, have had some intermittent bleeding. Patient states that a few days ago she thought she saw some dark stool in her diarrhea. However she states that her main reason for evaluation today is for hemorrhoid pain relief. She states she is tried multiple [id number] medications. She has never had any surgical procedures done to her hemorrhoids. - Related Data Allergies/Adverse Reactions: Sulfa (Sulfonamide Antibiotics) Allergy (Verified 02/23/20 21:24) Hives Home Medications: Lisinopril Past Medical History - General Information source: Patient - Social History Smoking Status: Current Every Day Smoker Frequency of alcohol use: None Drug Abuse: None Family History: Arthritis, CVA, DM, Hyperlipidemia, Hypertension, Malignancy, Thyroid Disfunction. denies: CAD, COPD Patient has homicidal ideation: No - Past Medical History Cardiac Medical History: Reports: Hx Hypertension Pulmonary Medical History: Reports: Hx Bronchitis Neurological Medical History: Reports: Hx Migraine Renal/ Medical History: Reports: Hx Kidney Stones, Hx Ovarian Cysts. Denies: Hx Peritoneal Dialysis Musculoskeletal Medical History: Reports Hx Musculoskeletal Deformity, Reports Hx Musculoskeletal Trauma Skin Medical History: Reports Hx Cellulitis Traumatic Medical History: Reports: Hx Fractures - Pelvis and L4, Hx Spine Fracture Past Surgical History: Reports: Hx Adenoidectomy, Hx Breast Surgery - Cysts, Hx Section - x1, Hx Cholecystectomy, Hx Kidney (Renal Surgery) - stent, Hx Orthopedic Surgery - Rods and left hip, Hx Tonsillectomy, Hx Tubal Ligation, Hx Urinary Tract Surgery - kidney stent - Immunizations Immunizations up to date: Yes Hx Diphtheria, Pertussis, Tetanus Vaccination: Yes - 2009 Review of Systems - Review of Systems Constitutional: denies: Fever EENT: No symptoms reported Cardiovascular: No symptoms reported, Heart racing Gastrointestinal: Diarrhea, Rectal bleeding. denies: Abdominal pain Genitourinary: No symptoms reported Female Genitourinary: No symptoms reported Musculoskeletal: No symptoms reported Skin: No symptoms reported Hematologic/Lymphatic: No symptoms reported Neurological/Psychological: No symptoms reported Physical Exam - Vital signs Vitals: Temp Pulse Resp BP Pulse Ox 98.9 F 137 H 18 141/98 H 99 02/29/20 21:06 02/29/20 21:06 02/29/20 21:06 02/29/20 21:06 02/29/20 21:06 - General General appearance: Appears well, Alert In distress: None - HEENT Head: Normocephalic, Atraumatic Extraocular movements intact: Yes Pupils: PERRL - Respiratory Breath sounds: Normal - Cardiovascular Rhythm: Regular - Heart rate 98 during exam Heart sounds: Normal auscultation - Abdominal Tenderness: Nontender - Rectal Stool: Heme negative Hemorrhoids: External Notes: 2 external hemorrhoids which are tender, no active bleeding - Extremities General upper extremity: Normal ROM General lower extremity: Normal ROM - Neurological Neuro grossly intact: Yes - Psychological Associated symptoms: Normal affect - Skin Skin Temperature: Warm Course - Re-evaluation Re-evalutation: 34-year-old female here with painful external hemorrhoids, has a history of this, have been agitated by several days of diarrhea. On exam patient does have 2 hemorrhoids that are tender, there is currently no active bleeding, guaiac negative. Abdomen is soft. She was initially tachycardic on her check in vitals, heart rate 90 or in the room with her. She did report concern for black stools, definitely would be at risk for gastritis given her chronic NSAID use, border dose of Pepcid, reassuring that her stool was guaiac negative. Will start treatment with viscous lidocaine and nitro mixture, then will apply Anusol suppository. Patient has received morphine, will give oral pain medication at this time. 03/01/20 02:24 The patient is now requesting to leave the emergency department. Her is getting called into work and this is her only ride. She unfortunately did not receive the prescribed rectal medications. Patient states she will come back to the emergency department. Prescribed Anusol suppositories and nitro ointment. Patient stable at time of discharge. - Vital Signs Vital signs: Temp Pulse Resp BP Pulse Ox 98.4 F 92 18 138/89 H 98 03/01/20 02:45 03/01/20 02:45 03/01/20 02:45 03/01/20 02:45 03/01/20 02:45 - Laboratory Result Diagrams: 02/29/20 22:23 02/29/20 22:23 Laboratory results interpreted by me: 02/29/20 02/29/20 22:23 22:23 WBC 12.7 H RDW 15.4 H Plt Count 522 H Urine Protein 100 H Urine Blood LARGE H Ur Leukocyte Esterase TRACE H Discharge - Discharge Clinical Impression: External hemorrhoid Disposition: HOME, SELF-CARE Prescriptions: Hydrocortisone Acetate [Anusol Hc 25 mg Supp.rect] 1 supp.rect OR BID #14 supp.rect Nitroglycerin [Nitrol 2% Ointment 1Gm Packet] 0.5 gm TP Q6 #4 oint..gm.
[2020-03-01] MEDS ORDERED: LIDOCAINE 2% JELLY 30 ML TUBE TOP ONE (01:51)
[2020-03-01] MEDS ORDERED: FAMOTIDINE INJ/PF 20 MG/2 ML SDV IV ONE (01:52)
[2020-03-01] MEDS ORDERED: HYDROCODONE/ACETAMINOPHEN 5-325 MG TABLET PO ONE (01:52)
[2020-03-01] MEDS ORDERED: NITROGLYCERIN 2% OINTMENT 1 GM PACKET TP ONE (01:53)
[2020-03-01] MEDS ORDERED: HYDROCORTISONE ACETATE 25 MG SUPP.RECT PR ONE (02:30)
[2020-03-01 02:47] VITALS: BP 138/89
== END 2020-03-01 02:46 | disposition home or self-care (01) ==
LOC: ER 20:51
DX: K64.4 Residual hemorrhoidal skin tags (principal); K62.5 Hemorrhage of anus and rectum; R19.7 Diarrhea, unspecified; F17.200 Nicotine dependence, unspecified, uncomplicated; I10 Essential (primary) hypertension; Z79.899 Other long term (current) drug therapy; Z79.1 Long term (current) use of non-steroidal anti-inflammatories (NSAID); Z88.2 Allergy status to sulfonamides
CPT/HCPCS: 99284; 96361; 96374; 96375; 36415; 83690; 85025; 80053; 81001; J3490; J2270; J7030; S0028

== ENCOUNTER 2020-03-17 12:47 | Emergency (ER) | payer SELFPAY ==
[2020-03-17] MEDS ORDERED: KETOROLAC TROMETHAMINE INJ/PF 30 MG/1 ML SDV IV ONE (13:02)
[2020-03-17] MEDS ORDERED: ONDANSETRON HCL INJ/PF 4 MG/2 ML SDV IV ONE (13:02)
[2020-03-17] MEDS ORDERED: NORMAL SALINE 1000 ML 1,000 ML IV ONE (13:02)
--- NOTE | 2020-03-17 13:03 | ER Document Report ---
ED Medical Screen (RME) - General Chief Complaint: Possible Kidney Stone Stated Complaint: FLANK PAIN Time Seen by Provider: 03/17/20 13:00 Notes: HPI: 34-year-old female presenting with right flank pain with nausea that began last night. No fever. History of kidney stones. Believes she last passed a kidney stone perhaps a month ago. Has had to have a stent in the past. Does not have a current urologist PHYSICAL EXAMINATION: Mild tenderness to the right flank and right CVA region on palpation appears mildly uncomfortable I have greeted and performed a rapid initial assessment of this patient. A comprehensive ED assessment and evaluation of the patient, analysis of test results and completion of medical decision making process will be conducted by an additional ED providers. TRAVEL OUTSIDE OF THE [place] IN LAST 30 DAYS: No - Related Data Allergies/Adverse Reactions: Sulfa (Sulfonamide Antibiotics) Allergy (Verified 02/23/20 21:24) Hives Past Medical History - Past Medical History Cardiac Medical History: Reports: Hx Hypertension Pulmonary Medical History: Reports: Hx Bronchitis Neurological Medical History: Reports: Hx Migraine Renal/ Medical History: Reports: Hx Kidney Stones, Hx Ovarian Cysts. Denies: Hx Peritoneal Dialysis Musculoskeltal Medical History: Reports Hx Musculoskeletal Deformity, Reports Hx Musculoskeletal Trauma Skin Medical History: Reports Hx Cellulitis Traumatic Medical History: Reports: Hx Fractures - Pelvis and L4, Hx Spine Fracture Past Surgical History: Reports: Hx Adenoidectomy, Hx Breast Surgery - Cysts, Hx Section - x1, Hx Cholecystectomy, Hx Kidney (Renal Surgery) - stent, Hx Orthopedic Surgery - Rods and left hip, Hx Tonsillectomy, Hx Tubal Ligation, Hx Urinary Tract Surgery - kidney stent - Immunizations Immunizations up to date: Yes Hx Diphtheria, Pertussis, Tetanus Vaccination: Yes - 2009
[2020-03-17 14:20] LABS: ABSOLUTE BASOPHILS # (AUTO) 0.1 10^3/uL (0.0-0.2); ABSOLUTE EOSINOPHILS # (AUTO) 0.1 10^3/uL (0.0-0.6); ABSOLUTE LYMPHOCYTES (AUTO) 5.4 10^3/uL (0.5-4.7); ABSOLUTE MONOCYTES (AUTO) 0.7 10^3/uL (0.1-1.4); ABSOLUTE NEUT (AUTO) 7.5 10^3/uL (1.7-8.2); EOSINOPHILS % (AUTO) 0.5 % (0-6); HEMATOCRIT 38.5 % (36.0-47.0); HEMOGLOBIN 13.4 g/dL (12.0-15.5); LYMPHOCYTES % (AUTO) 39.5 % (13-45); MEAN CORPUSCULAR HEMOGLOBIN 30.2 pg (27.0-33.4); MEAN CORPUSCULAR HGB CONC 34.8 g/dL (32.0-36.0); MEAN CORPUSCULAR VOLUME 87 fl (80-97); MONOCYTES % (AUTO) 4.7 % (3-13); PLATELET COUNT 549 10^3/uL (150-450); RED BLOOD COUNT 4.42 10^6/uL (3.72-5.28); RED CELL DISTRIBUTION WIDTH 15.5 % (11.5-14.0); SEGMENTED NEUTROPHILS % (AUTO) 54.3 % (42-78); TOTAL CELLS COUNTED % (AUTO) 100 %; WHITE BLOOD COUNT 13.8 10^3/uL (4.0-10.5)
[2020-03-17 14:31] LABS: ALBUMIN 4.5 g/dL (3.5-5.0); ALKALINE PHOSPHATASE 98 U/L (38-126); ANION GAP 11 (5-19); ASPARTATE AMINO TRANSFERASE 18 U/L (14-36); BILIRUBIN,DIRECT 0.1 mg/dL (0.0-0.4); BILIRUBIN,TOTAL 0.3 mg/dL (0.2-1.3); BLOOD UREA NITROGEN 9 mg/dL (7-20); CALCIUM 9.8 mg/dL (8.4-10.2); CARBON DIOXIDE 23 mmol/L (22-30); CHLORIDE 108 mmol/L (98-107); GLUCOSE 81 mg/dL (75-110); POTASSIUM 4.5 mmol/L (3.6-5.0); TOTAL PROTEIN 7.7 g/dL (6.3-8.2)
[2020-03-17 14:33] LABS: APPEARANCE,URINE SLIGHTLY-CLOUDY; BILIRUBIN,URINE NEGATIVE (NEGATIVE); COLOR,URINE YELLOW; GLUCOSE, URINE NEGATIVE (NEGATIVE); KETONES,URINE NEGATIVE (NEGATIVE); LEUKOCYTE ESTERASE,URINE NEGATIVE (NEGATIVE); NITRITE,URINE NEGATIVE (NEGATIVE); PROTEIN,URINE NEGATIVE (NEGATIVE); URINE SPECIFIC GRAVITY 1.017; UROBILINOGEN,URINE NEGATIVE mg/dL (<2.0)
--- NOTE | 2020-03-17 14:49 | RADIOLOGY REPORT (SQ) ---
EXAM DESCRIPTION: CT ABD/PELVIS NO ORAL OR IV IMAGES COMPLETED DATE/TIME: 03/17/2020 2:12 pm REASON FOR STUDY: right flank pain kidney stone hx COMPARISON: 02/21/2020 TECHNIQUE: CT scan of the abdomen and pelvis performed without intravenous or oral contrast. Images reviewed with lung, soft tissue, and bone windows. Reconstructed coronal and sagittal MPR images revi ewed. All images stored on PACS. All CT scanners at this facility use dose modulation, iterative reconstruction, and/or weight based d osing when appropriate to reduce radiation dose to as low as reasonably achievable (ALARA). [facility]: Dose Right [facility]: CareDose [facility]: Dose Right [facility]: Teradose 4D [facility]: [employer] RADIATION DOSE: CT Rad equipment meets quality standard of care and radiation dose reduction techniq ues were employed. CTDIvol: 4.8 mGy. DLP: 254 mGy-cm.mGy. LIMITATIONS: None. FINDINGS: LOWER CHEST: No significant findings. No nodules or infiltrates. NON-CONTRASTED LIVER, SPLEEN, ADRENALS: Evaluation limited by lack of IV contrast. No identified sign ificant masses. PANCREAS: No masses. No peripancreatic inflammatory changes. GALLBLADDER: Surgically absent. RIGHT KIDNEY AND URETER: No suspicious masses. Assessment limited by lack of IV contrast. Periphera l nephrolithiasis. No hydronephrosis or hydroureter. LEFT KIDNEY AND URETER: No suspicious masses. Assessment limited by lack of IV contrast. Peripheral nephrolithiasis. No hydronephrosis or hydroureter. AORTA AND RETROPERITONEUM: No aneurysm. No retroperitoneal masses or adenopathy. BOWEL AND PERITONEAL CAVITY: No obvious masses or inflammatory changes. No free fluid. APPENDIX: Normal. PELVIS, BLADDER, AND ABDOMINAL WALL:No abnormal masses. No free fluid. Bladder normal. BONES: Surgical changes in the left pelvis. OTHER: No other significant finding. IMPRESSION: Bilateral nonobstructive nephrolithiasis. COMMENT: Quality ID # [id number]: Final reports with documentation of one or more dose reduction techniques (e.g., Automated exposure control, adjustment of the mA and/or kV according to patient size, use of iterative reconstruction technique) TECHNICAL DOCUMENTATION: JOB ID: [id number] 2010 [employer]- All Rights Reserved Reading location - IP/workstation name: [email or web address]
[2020-03-17 16:55] VITALS: BP 139/93
--- NOTE | 2020-03-17 17:20 | ER Document Report ---
Entered by MELISSA CARRASQUILLO SCRIBE 03/17/20 1616 Acting as scribe for:ALBERTO FAN MD ED GI/ - General Chief Complaint: Possible Kidney Stone Stated Complaint: FLANK PAIN Time Seen by Provider: 03/17/20 13:00 Mode of Arrival: Ambulatory Information source: Patient Notes: This 34 year old female patient with kidney stones presents to the emergency department today with complaints of right sided flank pain. Patient was seen here on February 19 for left flank pain and she thought she had a kidney stone although CT scan showed stones in the kidneys but she wasn't passing a stone. She reports she was in bed last night around 11:30 PM when she developed this s harp stabbing left flank pain. She has had nausea and urinary frequency but she denies vomiting or dysuria. TRAVEL OUTSIDE OF THE [place] IN LAST 30 DAYS: No - Related Data Allergies/Adverse Reactions: Sulfa (Sulfonamide Antibiotics) Allergy (Verified 02/23/20 21:24) Hives Home Medications: lisinopril Past Medical History - General Information source: Patient - Social History Smoking Status: Current Every Day Smoker Cigarette use (# per day): Yes Frequency of alcohol use: None Drug Abuse: None Lives with: Family Family History: Arthritis, CVA, DM, Hyperlipidemia, Hypertension, Malignancy, Thyroid Disfunction Patient has homicidal ideation: No - Past Medical History Cardiac Medical History: Reports: Hx Hypertension Pulmonary Medical History: Reports: Hx Bronchitis Neurological Medical History: Reports: Hx Migraine Renal/ Medical History: Reports: Hx Kidney Stones, Hx Ovarian Cysts Musculoskeletal Medical History: Reports Hx Musculoskeletal Deformity, Reports Hx Musculoskeletal Trauma Skin Medical History: Reports Hx Cellulitis Traumatic Medical History: Reports: Hx Fractures - Pelvis and L4, Hx Spine Fracture Past Surgical History: Reports: Hx Adenoidectomy, Hx Breast Surgery - Cysts, Hx Section - x1, Hx Cholecystectomy, Hx Kidney (Renal Surgery) - stent, Hx Orthopedic Surgery - Rods and left hip, Hx Tonsillectomy, Hx Tubal Ligation, Hx Urinary Tract Surgery - kidney stent - Immunizations Immunizations up to date: Yes Hx Diphtheria, Pertussis, Tetanus Vaccination: Yes - 2009 Review of Systems - Review of Systems Constitutional: No symptoms reported EENT: No symptoms reported Cardiovascular: No symptoms reported Respiratory: No symptoms reported Gastrointestinal: See HPI, Nausea. denies: Vomiting Genitourinary: See HPI, Frequency, Flank pain. denies: Burning Female Genitourinary: No symptoms reported Musculoskeletal: No symptoms reported Skin: No symptoms reported Hematologic/Lymphatic: No symptoms reported Neurological/Psychological: No symptoms reported -: Yes All other systems reviewed and negative Physical Exam - Vital signs Vitals: Temp Pulse Resp BP Pulse Ox 99.0 F 116 H 16 122/85 99 03/17/20 13:00 03/17/20 13:00 03/17/20 13:00 03/17/20 13:00 03/17/20 13:00 - Notes Notes: Physical Exam: General: Alert, appears well. HEENT: Normocephalic. Atraumatic. PERRL. Extraocular movements intact. Oropharynx clear. Neck: Supple. Non-tender. Respiratory: No respiratory distress. Clear and equal breath sounds bilaterally. Cardiovascular: Regular rate and rhythm. Abdominal: Normal Inspection. Non-tender. No distension. Normal Bowel Sounds. Back: Bilateral lumbar musculature tenderness to palpation, Right > Left. Tenderness to palpation over the right iliac crest. No gross abnormalities. Extremities: Moves all four extremities. Upper extremities: Normal inspection. Normal ROM. Lower extremities: Normal inspection. No edema. Normal ROM. Neurological: Normal cognition. AAOx4. Normal speech. Psychological: Normal affect. Normal Mood. Skin: Warm. Dry. Normal color. Course - Vital Signs Vital signs: Temp Pulse Resp BP Pulse Ox 98.3 F 88 18 139/93 H 100 03/17/20 16:53 03/17/20 16:53 03/17/20 16:53 03/17/20 16:53 03/17/20 16:53 - Laboratory Result Diagrams: 03/17/20 13:45 03/17/20 13:45 Laboratory results interpreted by me: 03/17/20 03/17/20 13:45 13:45 WBC 13.8 H RDW 15.5 H Plt Count 549 H Absolute Lymphs (auto) 5.4 H Chloride 108 H Discharge - Discharge Clinical Impression: Low back pain Condition: Stable Disposition: HOME, SELF-CARE Additional Instructions: Low Back Pain: Three out of every four people will have an episode of disabling back pain during their lifetime. Most commonly the pain is due to straining of the muscles and ligaments in the low back. Usual treatment includes: (1) Rest on a firm surface. Avoid lying on your stomach. (2) Ice pack the painful area. After a few days, gentle heat may be used intermittently to relax the area, or ice packs can be continued. (3) Tylenol and ibuprofen are usually helpful. (4) As the back improves, exercises are prescribed to strengthen the back and abdominal muscles. Your doctor will advise you on the proper care for your back at each stage in your recovery. You may be better in a few days -- or healing may take several weeks. Follow-up with your primary care provider if not improving over the next several days. I personally performed the services described in the documentation, reviewed and edited the documentation which was dictated to the scribe in my presence, and it accurately records my words and actions.
== END 2020-03-17 17:03 | disposition home or self-care (01) ==
LOC: ER 12:47
DX: N20.0 Calculus of kidney (principal); R11.0 Nausea; R35.0 Frequency of micturition; Z88.2 Allergy status to sulfonamides; R10.9 Unspecified abdominal pain; F17.200 Nicotine dependence, unspecified, uncomplicated; I10 Essential (primary) hypertension
CPT/HCPCS: 99285; 96361; 96374; 96375; 36415; 84703; 85025; 80053; 81001; 74176; J1885; J2405; J7030

== ENCOUNTER 2020-04-03 16:32 | Emergency (ER) | payer SELFPAY ==
[2020-04-03 18:46] LABS: APPEARANCE,URINE SLIGHTLY-CLOUDY; BILIRUBIN,URINE NEGATIVE (NEGATIVE); COLOR,URINE YELLOW; GLUCOSE, URINE NEGATIVE (NEGATIVE); KETONES,URINE NEGATIVE (NEGATIVE); LEUKOCYTE ESTERASE,URINE TRACE (NEGATIVE); NITRITE,URINE NEGATIVE (NEGATIVE); PROTEIN,URINE 30 mg/dL (NEGATIVE); URINE SPECIFIC GRAVITY 1.011; UROBILINOGEN,URINE NEGATIVE mg/dL (<2.0)
[2020-04-03 20:17] LABS: ABSOLUTE BASOPHILS # (AUTO) 0.1 10^3/uL (0.0-0.2); ABSOLUTE EOSINOPHILS # (AUTO) 0.1 10^3/uL (0.0-0.6); ABSOLUTE LYMPHOCYTES (AUTO) 3.9 10^3/uL (0.5-4.7); ABSOLUTE MONOCYTES (AUTO) 0.5 10^3/uL (0.1-1.4); BASOPHILS % (AUTO) 0.8 % (0-2); EOSINOPHILS % (AUTO) 0.8 % (0-6); HEMATOCRIT 36.1 % (36.0-47.0); HEMOGLOBIN 12.9 g/dL (12.0-15.5); LYMPHOCYTES % (AUTO) 37.3 % (13-45); MEAN CORPUSCULAR HEMOGLOBIN 31.1 pg (27.0-33.4); MEAN CORPUSCULAR HGB CONC 35.7 g/dL (32.0-36.0); MEAN CORPUSCULAR VOLUME 87 fl (80-97); MONOCYTES % (AUTO) 4.5 % (3-13); PLATELET COUNT 466 10^3/uL (150-450); RED BLOOD COUNT 4.14 10^6/uL (3.72-5.28); RED CELL DISTRIBUTION WIDTH 15.3 % (11.5-14.0); SEGMENTED NEUTROPHILS % (AUTO) 56.6 % (42-78); TOTAL CELLS COUNTED % (AUTO) 100 %; WHITE BLOOD COUNT 10.6 10^3/uL (4.0-10.5)
[2020-04-03 20:35] LABS: ALKALINE PHOSPHATASE 144 U/L (38-126); ANION GAP 9 (5-19); ASPARTATE AMINO TRANSFERASE 19 U/L (14-36); BILIRUBIN,DIRECT 0.1 mg/dL (0.0-0.4); BILIRUBIN,TOTAL 0.3 mg/dL (0.2-1.3); BLOOD UREA NITROGEN 9 mg/dL (7-20); CALCIUM 9.6 mg/dL (8.4-10.2); CARBON DIOXIDE 25 mmol/L (22-30); CHLORIDE 104 mmol/L (98-107); GLUCOSE 81 mg/dL (75-110); POTASSIUM 4.1 mmol/L (3.6-5.0); TOTAL PROTEIN 7.1 g/dL (6.3-8.2)
[2020-04-03] MEDS ORDERED: NORMAL SALINE 1000 ML 1,000 ML IV ONE (20:49)
[2020-04-03] MEDS ORDERED: KETOROLAC TROMETHAMINE INJ/PF 30 MG/1 ML SDV IV ONE (20:49)
[2020-04-03] MEDS ORDERED: ONDANSETRON HCL INJ/PF 4 MG/2 ML SDV IV ONE (21:05)
--- NOTE | 2020-04-03 21:09 | ER Document Report ---
ED General - General Chief Complaint: Possible Kidney Stone Stated Complaint: POSSIBLE KIDNEY STONE Time Seen by Provider: 04/03/20 20:07 TRAVEL OUTSIDE OF THE [place] IN LAST 30 DAYS: No - HPI Notes: Patient is a 34-year-old female with a known history of chronic back pain as well as kidney stones who presents emergency department for evaluation of right flank pain. It started in the last 36 hours. She states she believes she has passed a few stones but her pain persists. Is sharp and stabbing, she rates it a 4 out of 5. She is had nausea with 2 episodes of nonbloody, nonbilious emesis. She states he has had some intermittent gross hematuria, but it seems to be relatively clear at this time. Normal bowel movements. She has been eating and drinking normally prior to all of this. She [facility] to [facility], states that she still has not been able to get an appointment. She states that with her nausea and vomiting, she did not even try Tylenol or ibuprofen for pain today. - Related Data Allergies/Adverse Reactions: Sulfa (Sulfonamide Antibiotics) Allergy (Verified 04/03/20 19:15) Glenn Past Medical History - General Information source: Patient - Social History Smoking Status: Current Every Day Smoker Chew tobacco use (# tins/day): No Frequency of alcohol use: None Drug Abuse: None Family History: Arthritis, CVA, DM, Hyperlipidemia, Hypertension, Malignancy, Thyroid Disfunction Patient has homicidal ideation: No - Past Medical History Cardiac Medical History: Reports: Hx Hypertension Pulmonary Medical History: Reports: Hx Bronchitis Neurological Medical History: Reports: Hx Migraine Renal/ Medical History: Reports: Hx Kidney Stones, Hx Ovarian Cysts. Denies: Hx Peritoneal Dialysis Musculoskeletal Medical History: Reports Hx Musculoskeletal Deformity, Reports Hx Musculoskeletal Trauma Skin Medical History: Reports Hx Cellulitis Traumatic Medical History: Reports: Hx Fractures - Pelvis and L4, Hx Spine Fracture Past Surgical History: Reports: Hx Adenoidectomy, Hx Breast Surgery - Cysts, Hx Section - x1, Hx Cholecystectomy, Hx Kidney (Renal Surgery) - stent, Hx Orthopedic Surgery - Rods and left hip, Hx Tonsillectomy, Hx Tubal Ligation, Hx Urinary Tract Surgery - kidney stent - Immunizations Immunizations up to date: Yes Hx Diphtheria, Pertussis, Tetanus Vaccination: Yes - 2009 Review of Systems - Review of Systems Constitutional: No symptoms reported EENT: No symptoms reported Cardiovascular: No symptoms reported Respiratory: No symptoms reported Gastrointestinal: See HPI Genitourinary: See HPI Female Genitourinary: No symptoms reported Musculoskeletal: See HPI Skin: No symptoms reported Neurological/Psychological: No symptoms reported -: Yes All other systems reviewed and negative Physical Exam - Vital signs Vitals: Temp Pulse Resp BP Pulse Ox 98.6 F 105 H 16 127/91 H 100 04/03/20 16:57 04/03/20 16:57 04/03/20 16:57 04/03/20 16:57 04/03/20 16:57 - Notes Notes: Vital signs reviewed, please refer to chart. Head is normocephalic, atraumatic. Pupils equal round, reactive to light. Neck is supple without meningismus. Heart is regular rate and rhythm. Lungs are clear to auscultation bilaterally. Abdomen is soft, nontender, normoactive bowel sounds throughout. Mild right flank tenderness, but no Naun sign noted. Extremities without cyanosis, clubbing. Posterior calves are nontender. Peripheral pulses are equal. Skin is warm and dry. Patient is awake, alert, neurological exam is nonfocal. Course - Re-evaluation Re-evalutation: 04/03/20 21:07 Patient presents emergency department for evaluation. Her symptoms seem consistent with renal colic. She does have some blood in her urine, as well as a few white blood cells. I will send her urine for culture, but I am not impressed with signs for infection. The patient has had multiple ultrasounds, multiple CT scans. Her last several scans have shown nephrolithiasis without ureterolithiasis, no signs of hydronephrosis. I do not highly suspect that at this time. I will just treat her symptoms. She is given Toradol, Zofran, fluids. I will reassess. She is told that she should stay well-hydrated and continue to seek out urological follow-up. She voices understanding. Will reassess for response to medication. She is going to be sent home with Zofran and prescription strength NSAIDs. She is to return to the ED with worsening. 04/03/20 21:49 Patient feeling somewhat improved. Further medicated with [place] and [place]. We will send her home with Zofran and anti-inflammatories. She is to follow-up with primary care and urology, return to the ED with worsening. - Vital Signs Vital signs: Temp Pulse Resp BP Pulse Ox 98.6 F 105 H 16 127/91 H 100 04/03/20 16:57 04/03/20 16:57 04/03/20 16:57 04/03/20 16:57 04/03/20 16:57 - Laboratory Result Diagrams: 04/03/20 20:00 04/03/20 20:00 Laboratory results interpreted by me: 04/03/20 04/03/20 04/03/20 18:25 20:00 20:00 WBC 10.6 H RDW 15.3 H Plt Count 466 H ALT 37 H Alkaline Phosphatase 144 H Urine Protein 30 H Urine Blood LARGE H Ur Leukocyte Esterase TRACE H Discharge - Discharge Clinical Impression: Renal colic on right side Condition: Stable Disposition: HOME, SELF-CARE Instructions: Kidney Stone ([facility]), Toradol Injection ([facility]) Additional Instructions: Stay hydrated. Take Toradol with food. Follow-up with primary care as soon as possible, seek out referral to urology. Return to the emergency department with worsening or new concerning symptoms of any sort.
[2020-04-03] MEDS ORDERED: DICYCLOMINE HCL INJ 20 MG/2 ML AMPULE IM ONE (21:47)
[2020-04-03] MEDS ORDERED: HYDROCODONE/ACETAMINOPHEN 5-325 MG TABLET PO ONE (21:47)
[2020-04-03] MEDS ORDERED: ONDANSETRON ODT 4 MG TAB (6 TAB/ER DISP) PO PRN (21:48)
[2020-04-03 22:33] VITALS: BP 139/100
== END 2020-04-03 22:33 | disposition home or self-care (01) ==
LOC: ER 16:32
DX: N23 Unspecified renal colic (principal); R31.0 Gross hematuria; R11.2 Nausea with vomiting, unspecified; F17.200 Nicotine dependence, unspecified, uncomplicated; I10 Essential (primary) hypertension; Z87.442 Personal history of urinary calculi; Z88.2 Allergy status to sulfonamides
CPT/HCPCS: 99284; 96372; 96361; 96374; 96375; 36415; 83690; 84703; 85025; 81025; 80053; 81001; J0500; J1885; J2405; J7030

== ENCOUNTER 2020-05-01 20:47 | Emergency (ER) | payer SELFPAY ==
--- NOTE | 2020-05-01 21:52 | ER Document Report ---
ED Medical Screen (RME) - General Chief Complaint: Rib Pain Stated Complaint: RIB PAIN, UNABLE TO TAKE DEEP BREATHS Time Seen by Provider: 05/01/20 21:38 TRAVEL OUTSIDE OF THE [place] IN LAST 30 DAYS: No - HPI Notes: 05/01/20 21:49 35-year-old female presents to emergency room with complaints of coughing for the last 2 weeks which is cause left rib pain and protrusion of her left ribs she states. Reports chest pain with with coughs and pain with taking deep breaths. Reports nausea and denies any vomiting or diarrhea. Denies any fevers or chills. Last menstrual cycle was 04/28/2020. Patient's heart rate in triage was 129. Patient is in pain but not grimacing. States she has tried Tylenol PM with some relief. I have greeted and performed a rapid initial assessment of this patient. A comprehensive ED assessment and evaluation of the patient, analysis of test results and completion of the medical decision making process will be conducted by additional ED providers. PHYSICAL EXAMINATION: GENERAL: Well-appearing, well-nourished and in no acute distress. HEAD: Atraumatic, normocephalic. CV: s1, s2 tachycardia LUNGS: No respiratory distress. tenderness to left rib 6-9, no step off noted Musculoskeletal: Normal range of motion NEUROLOGICAL: Normal speech, normal gait. SKIN: Warm, Dry, normal turgor, no rashes or lesions noted. The patient was evaluated during a global COVID-19 pandemic and that diagnosis was suspected/considered upon their initial presentation. Their evaluation, treatment and testing was consistent with current guidelines for patients who present with complaints or symptoms and may be related to COVID-19. - Related Data Allergies/Adverse Reactions: Sulfa (Sulfonamide Antibiotics) Allergy (Verified 04/03/20 19:15) Hives Past Medical History - Past Medical History Cardiac Medical History: Reports: Hx Hypertension Pulmonary Medical History: Reports: Hx Bronchitis Neurological Medical History: Reports: Hx Migraine Renal/ Medical History: Reports: Hx Kidney Stones, Hx Ovarian Cysts. Denies: Hx Peritoneal Dialysis Musculoskeltal Medical History: Reports Hx Musculoskeletal Deformity, Reports Hx Musculoskeletal Trauma Skin Medical History: Reports Hx Cellulitis Traumatic Medical History: Reports: Hx Fractures - Pelvis and L4, Hx Spine Fracture Past Surgical History: Reports: Hx Adenoidectomy, Hx Breast Surgery - Cysts, Hx Section - x1, Hx Cholecystectomy, Hx Kidney (Renal Surgery) - stent, Hx Orthopedic Surgery - Rods and left hip, Hx Tonsillectomy, Hx Tubal Ligation, Hx Urinary Tract Surgery - kidney stent - Immunizations Immunizations up to date: Yes Hx Diphtheria, Pertussis, Tetanus Vaccination: Yes - 2009 Physical Exam - Vital signs Vitals: Temp Pulse Resp BP Pulse Ox 98.5 F 129 H 20 141/103 H 98 05/01/20 20:58 05/01/20 20:58 05/01/20 20:58 05/01/20 20:58 05/01/20 20:58 Course - Vital Signs Vital signs: Temp Pulse Resp BP Pulse Ox 98.5 F 129 H 20 141/103 H 98 05/01/20 20:58 05/01/20 20:58 05/01/20 20:58 05/01/20 20:58 05/01/20 20:58
[2020-05-01 22:26] LABS: ABSOLUTE BASOPHILS # (AUTO) 0.1 10^3/uL (0.0-0.2); ABSOLUTE EOSINOPHILS # (AUTO) 0.1 10^3/uL (0.0-0.6); ABSOLUTE LYMPHOCYTES (AUTO) 4.7 10^3/uL (0.5-4.7); ABSOLUTE MONOCYTES (AUTO) 0.7 10^3/uL (0.1-1.4); ABSOLUTE NEUT (AUTO) 6.8 10^3/uL (1.7-8.2); BASOPHILS % (AUTO) 0.7 % (0-2); EOSINOPHILS % (AUTO) 0.5 % (0-6); HEMOGLOBIN 13.3 g/dL (12.0-15.5); LYMPHOCYTES % (AUTO) 37.9 % (13-45); MEAN CORPUSCULAR HEMOGLOBIN 29.6 pg (27.0-33.4); MEAN CORPUSCULAR VOLUME 87 fl (80-97); MONOCYTES % (AUTO) 5.4 % (3-13); PLATELET COUNT 510 10^3/uL (150-450); RED BLOOD COUNT 4.47 10^6/uL (3.72-5.28); RED CELL DISTRIBUTION WIDTH 14.9 % (11.5-14.0); SEGMENTED NEUTROPHILS % (AUTO) 55.5 % (42-78); TOTAL CELLS COUNTED % (AUTO) 100 %; WHITE BLOOD COUNT 12.3 10^3/uL (4.0-10.5)
--- NOTE | 2020-05-01 22:29 | RADIOLOGY REPORT (SQ) ---
EXAM DESCRIPTION: XR RIBS UNILATERAL WITH CHEST COMPLETED DATE/TME: 05/01/2020 22:03 CLINICAL HISTORY: 35 years, Female, coughing x2w, left rib pain COMPARISON: October 05, 2018 chest x-ray NUMBER OF VIEWS: 3 TECHNIQUE: 3 views of the left ribs and chest were obtained. LIMITATIONS: None. FINDINGS: No left rib abnormality is identified. The heart size is normal and the lungs are clear. There is no evidence of pleural effusion or pneumothorax. IMPRESSION: No acute abnormality as above. copyright 2010 [employer]- All Rights Reserved
[2020-05-01 22:40] LABS: ALBUMIN 4.3 g/dL (3.5-5.0); ALKALINE PHOSPHATASE 122 U/L (38-126); ANION GAP 7 (5-19); ASPARTATE AMINO TRANSFERASE 18 U/L (14-36); BILIRUBIN,DIRECT 0.1 mg/dL (0.0-0.4); BILIRUBIN,TOTAL 0.4 mg/dL (0.2-1.3); BLOOD UREA NITROGEN 8 mg/dL (7-20); CALCIUM 9.8 mg/dL (8.4-10.2); CARBON DIOXIDE 25 mmol/L (22-30); CHLORIDE 105 mmol/L (98-107); GLUCOSE 85 mg/dL (75-110); POTASSIUM 4.2 mmol/L (3.6-5.0); TOTAL PROTEIN 7.6 g/dL (6.3-8.2)
[2020-05-01] MEDS ORDERED: KETOROLAC TROMETHAMINE INJ/PF 30 MG/1 ML SDV IV ONE (22:41)
[2020-05-01] MEDS ORDERED: MORPHINE SULFATE 10 MG/ML INJ IV ONE (22:41)
[2020-05-01] MEDS ORDERED: NORMAL SALINE 1000 ML 1,000 ML IV ONE (22:42)
[2020-05-02] MEDS ORDERED: FAMOTIDINE INJ/PF 20 MG/2 ML SDV IV ONE (00:08)
[2020-05-02] MEDS ORDERED: SUCRALFATE 1 GM TABLET PO ONE (00:08)
--- NOTE | 2020-05-02 00:34 | ER Document Report ---
ED General - General Chief Complaint: Rib Pain Stated Complaint: RIB PAIN, UNABLE TO TAKE DEEP BREATHS Time Seen by Provider: 05/01/20 21:38 Notes: 35-year-old female smoker with hypertension presents with approximately 2 weeks of left lower rib/upper abdominal pain that she woke up with 1 day. Patient says she was in her usual state of health and woke up the next day and had the pain and since then it has been constant and now she has been so bothered by it not improving that she is presented to ED. Pain is worsens when she presses on lower ribs or upper abdomen or when she takes a deep breath. Patient feels like that area looks swollen. Patient denies any trauma, previous episodes, shortness of breath, cough, fever, back pain, abdominal pain elsewhere, vomiting, diarrhea, constipation, melena/5 of blood per rectum, drug use, a lcohol use, cancer history, DVT/PE/hypercoagulability history in self or family, exogenous estrogen use/recent , recent travel/trauma/surgery/immobilization, hemoptysis TRAVEL OUTSIDE OF THE [place] IN LAST 30 DAYS: No - Related Data Allergies/Adverse Reactions: Sulfa (Sulfonamide Antibiotics) Allergy (Verified 04/03/20 19:15) Hives Past Medical History - General Information source: Patient - Social History Smoking Status: Never Smoker Chew tobacco use (# tins/day): No Drug Abuse: None Family History: Arthritis, CVA, DM, Hyperlipidemia, Hypertension, Malignancy, Thyroid Disfunction Patient has homicidal ideation: No - Past Medical History Cardiac Medical History: Reports: Hx Hypertension Pulmonary Medical History: Reports: Hx Bronchitis Neurological Medical History: Reports: Hx Migraine Renal/ Medical History: Reports: Hx Kidney Stones, Hx Ovarian Cysts. Denies: Hx Peritoneal Dialysis Musculoskeletal Medical History: Reports Hx Musculoskeletal Deformity, Reports Hx Musculoskeletal Trauma Skin Medical History: Reports Hx Cellulitis Traumatic Medical History: Reports: Hx Fractures - Pelvis and L4, Hx Spine Frac ture Past Surgical History: Reports: Hx Adenoidectomy, Hx Breast Surgery - Cysts, Hx Section - x1, Hx Cholecystectomy, Hx Kidney (Renal Surgery) - stent, Hx Orthopedic Surgery - Rods and left hip, Hx Tonsillectomy, Hx Tubal Ligation, Hx Urinary Tract Surgery - kidney stent - Immunizations Immunizations up to date: Yes Hx Diphtheria, Pertussis, Tetanus Vaccination: Yes - 2009 Review of Systems - Review of Systems Notes: REVIEW OF SYSTEMS: CONSTITUTIONAL : Denies fever, chills, or sweats. EENT: Denies recent cold/sinus symptoms, denies throat pain CARDIOVASCULAR: +chest pain, -TERESE RESPIRATORY: Denies cough, denies shortness of breath. GASTROINTESTINAL: +abdominal pain, -nausea/vomiting. GENITOURINARY: Denies difficulty urinating, painful urination. FEMALE GENITOURINARY: Denies abnormal vaginal bleeding, vaginal discharge. MUSCULOSKELETAL: Denies neck pain, back pain. SKIN: Denies rash or skin lesions. HEMATOLOGIC : Denies easy bruising or bleeding. LYMPHATIC: Denies swollen, enlarged glands. NEUROLOGICAL: Denies headache, denies change in gait. PSYCHIATRIC: Denies anxiety or stress or depression. Physical Exam - Vital signs Vitals: Temp Pulse Resp BP Pulse Ox 98.5 F 129 H 20 141/103 H 98 05/01/20 20:58 05/01/20 20:58 05/01/20 20:58 05/01/20 20:58 05/01/20 20:58 - Notes Notes: PHYSICAL EXAMINATION: GENERAL: Well-appearing, well-nourished and in no acute distress. HEAD: Atraumatic, normocephalic. EYES: Pupils equal round and appropriate constriction, sclera anicteric, conjunctiva are normal. ENT: nares patent, mildly dry mucous membranes. NECK: Normal range of motion, supple without lymphadenopathy LUNGS: Breath sounds clear to auscultation bilaterally and equal. No wheezes rales or rhonchi. Normal respiratory rate and effort. Decreased excursion because limited by pain at inferior anterior left ribs, tenderness with palpation but normal inspection, no edema, no deformity HEART: Regular rate and rhythm without murmurs ABDOMEN: Soft, upper left quadrant tenderness underneath costal margin without guarding or rebound, no masses, no CVA tenderness EXTREMITIES: Normal range of motion, no pitting or edema. No cyanosis. NEUROLOGICAL: Awake, alert, conversing appropriately, moves all extremities spontaneously. PSYCH: Normal mood, normal affect. SKIN: Warm, Dry, normal turgor, no rashes or lesions noted. Course - Re-evaluation Re-evalutation: 05/02/20 00:38 Inferior left sharp chest pain/left upper quadrant pain, very focal, no associated symptoms, no risk factors for PE but unable to use PERC given patient's initial tachycardia which resolved without intervention at time of my evaluation so I obtained a D-dimer which was sufficient to rule out PE in this low risk patient. Patient has some abdominal tenderness concern for possible occult trauma/pathologic rib fracture/splenic pathology such as abscess or mass. Given the D-dimer was negative I ordered CT abdomen pelvis to evaluate the left upper quadrant which would include the lung bases. Patient feels somewhat improved after analgesia, but still has pain, in case of atypical presentation of PUD I ordered Pepcid and Carafate to see if symptoms improve. We will continue to monitor pending results of CT. 05/02/20 03:18 Patient abdominal exam remains benign, tachycardia resolved after hydration, no emergent findings on CT scan, mild leukocytosis nonspecific. Possible PUD given location of pain that is bothered by taking deep breaths because it applies downward pressure on the stomach, instructed patient to follow-up with primary doctor and with acid washer operator, but gave return precautions for GI bleed, PUD complications, PE, ACS, which patient demonstrated understanding of. No signs of complications of PAD such as perforation or abscess. Patient ready for discharge. Requested a dose of pain medication before discharge which I ordered. - Vital Signs Vital signs: Temp Pulse Resp BP Pulse Ox 98.5 F 84 18 134/98 H 99 05/01/20 20:58 05/02/20 00:30 05/02/20 00:30 05/02/20 00:30 05/02/20 00:30 - Laboratory Results Result Diagrams: 05/01/20 21:55 05/01/20 21:55 Laboratory Results Interpreted: 05/01/20 05/01/20 21:55 21:55 WBC 12.3 H RDW 14.9 H Plt Count 510 H Sodium 136.5 L Critical Laboratory Results Reviewed: No Critical Results - Radiology Results Critical Radiology Results Reviewed: No Critical Results - EKG Interpretation by Me Additional EKG results interpreted by me: 05/02/20 03:21 Sinus rhythm, no significant ST elevations or depressions, no significant T wave abnormalities Discharge - Discharge Clinical Impression: Abdominal pain Qualifiers: Abdominal location: left upper quadrant Qualified Code(s): R10.12 - Left upper quadrant pain Chest pain Qualifiers: Chest pain type: unspecified Qualified Code(s): R07.9 - Chest pain, unspecified Disposition: HOME, SELF-CARE Additional Instructions: Chest Pain of Unclear Cause The exact cause of your chest pain isn't clear. Fortunately, there is no evidence of a dangerous medical condition. Further testing may be required to find the source of the pain. Most often, we find that this pain is coming from the chest wall -- the muscles or rib joints in the chest. But chest pain can come from the lung and lung lining, the esophagus, the heart valves or heart lining, and even the stomach or gallbladder. Rest. Eat lightly until the pain is gone. We may prescribe medicine for pain and inflammation. You should call the physician immediately if the pain radiates to the shoulder, jaw or arms; if you start to run a fever or develop a cough; or if you develop shortness of breath, or other new or alarming symptoms. Abdominal Pain There are many causes of abdominal pain. Pain can mean a serious problem requiring surgery (such as appendicitis). It can also be an innocent problem that goes away on its own (such as a viral infection). Often, time must pass to determine the cause of pain. The physician does not feel that hospitalization is necessary, at present. Things may change within the next 24 hours. Call the doctor or come back for re-examination if any problems occur, such as: (1) Pain that becomes more severe, steady, or becomes concentrated in one specific area. Also, pain that is more severe with movement or coughing. (2) Vomiting that persists or becomes more frequent. (3) Blood in the vomitus, urine, or bowel movements. Blood in the stool may have a tarry or black appearance. (4) Shaking chills or fever greater than 100 degrees F. (5) The abdomen becomes more distended or swollen. (6) Bowel movements cease. (7) Failure to improve as expected. Follow-up with your primary doctor and acid washer operator within 1 week. If you have any worsening pain, difficulty breathing, weakness, fainting, black stools, bloody stools, fever of 100.4 or higher, or any other worsening or alarming symptoms please return to the emergency department immediately. Increase of fluids that you drink each day and see follow-up with your primary doctor. Your white blood cells are mildly high, discussed this with your primary doctor. Prescriptions: Acetaminophen with Codeine [Tylenol #3 Tablet] 1 each PO Q4HP PRN #4 tablet PRN Reason: Severe Pain Omeprazole 40 mg PO DAILY #12 capsule. Famotidine [Pepcid 20 mg Tablet] 20 mg PO DAILY #12 tablet Referrals: MALKA ANDRADE MD [ACTIVE STAFF] - Follow up in 1 week
--- NOTE | 2020-05-02 02:35 | RADIOLOGY REPORT (SQ) ---
CLINICAL HISTORY: LUQ/ant low rib pain and swelling. TOTAL HCG NEG. COMPARISON: 03/17/2020. TECHNIQUE: CT ABDOMEN PELVIS WITH IV CONTRAST on 05/02/2020 12:07 AM PRINCIPAL SYSTEMS ARCHITECT This exam was performed according to our departmental dose-optimization program, which includes automated exposure control, adjustment of the mA and/or kV according to patient size and/or use of iterative reconstruction technique. FINDINGS: Lower lungs are clear. Abdomen: The liver is normal in appearance. There is now moderate intra and extrahepatic biliary dilatation. The extrahepatic common bile duct measures 1.6 cm. There is no clear obstructing lesion. Cholecystectomy was performed. The pancreas and spleen are normal in appearance. There are scattered small bilateral renal calculi without hydronephrosis. Abdominal aorta is normal in course and caliber without aneurysm. There is no free air. There is no retroperitoneal adenopathy. Pelvis: There is mild left colonic diverticulosis. Urinary bladder is unremarkable. There is no free fluid. Uterus is normal in size. Appendix is normal. Skeleton: There may be an old fracture of the inferior right pubic arch. There is a left-sided sacral screw. IMPRESSION: Developing biliary dilatation with no clear etiology.
[2020-05-02] MEDS ORDERED: ACETAMINOPHEN WITH CODEINE #3 TABLET PO ONE (03:18)
[2020-05-02 03:25] VITALS: BP 131/106
--- NOTE | 2020-05-02 07:17 | EKG REPORT ---
SEVERITY:- BORDERLINE ECG - SINUS TACHYCARDIA PROBABLE LEFT ATRIAL ABNORMALITY BORDERLINE T ABNORMALITIES, ANT-LAT LEADS : Confirmed by: Deacon Ortiz MD 02-May-2020 07:16:42
== END 2020-05-02 03:27 | disposition home or self-care (01) ==
LOC: ER 20:47
DX: R07.81 Pleurodynia (principal); R10.12 Left upper quadrant pain; R10.812 Left upper quadrant abdominal tenderness; R00.0 Tachycardia, unspecified; D72.829 Elevated white blood cell count, unspecified; I10 Essential (primary) hypertension; Z90.49 Acquired absence of other specified parts of digestive tract; Z98.51 Tubal ligation status; Z88.2 Allergy status to sulfonamides
CPT/HCPCS: 93005; 99285; 96361; 96374; 96375; 36415; 84702; 83690; 85025; 80053; 84484; 85379; 71101; 74177; 93010; J1885; J2270; J7030; S0028